=== PATIENT | female | born 1995 | race Caucasian/White ===

== ENCOUNTER 2016-04-20 22:47 | Emergency (ER) | payer MEDICAID ==
[2016-04-20 23:30] VITALS: BP 112/45
[2016-04-20] MEDS ORDERED: Acetaminophen/HYDROcodone 325-5 MG Tab PO ONE (23:42)
[2016-04-20] MEDS ORDERED: Prochlorperazine 10 MG Tab PO ONE (23:42)
--- NOTE | 2016-04-20 23:45 | EDM.PDOC ---
ED HPI HEADACHE COMPLAINT - General Chief Complaint: Headache Stated Complaint: MIGRAINE Time Seen by Provider: 04/20/16 23:06 Source: Reports: Patient History Limitations: Reports: No limitations - History of Present Illness INITIAL COMMENTS - FREE TEXT/NARRATIVE: This patient comes in complaining of a headache. It's been going on for weeks. She was in clinic yesterday and was given an Imitrex prescription and some Toradol I believe an injection and she said the Toradol helped. She took an Imitrex tablet tonight but it didn't seem to help. The pain is all on the left side of her head. She has a long history of headaches and this is nothing unusual for her. She had a vaginal delivery approximately 3 weeks ago. She denies any edema or abdominal pain. There is no history of preeclampsia. - Related Data Allergies/ADRs: Allergies Allergy/AdvReac Type Severity Reaction Status Date / Time No Known Allergies Allergy Verified 04/20/16 23:30 Home Meds: Home Meds Albuterol Sulfate [Proventil Hfa] 1 - 2 puff IH Q4HR PRN 07/06/15 [History] Ferrous Sulfate 325 mg PO BIDMEALS 12/28/15 [History] SUMAtriptan [Imitrex] 25 mg PO ASDIRECTED 04/20/16 [History] Past Medical History HEENT History: Reports: Impaired vision Other HEENT History: vision corrected with glasses Cardiovascular History: Reports: Other (see below) Other Cardiovascular History: heart palpitations Respiratory History: Reports: Asthma Other Respiratory History: uses inhaler; last used unknown Gastrointestinal History: Reports: Chronic constipation, GERD Other Gastrointestinal History: mom has crohns; Umbilical hernia Genitourinary History: Reports: STD, UTI, recurrent 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: , 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 Other OB/BYN History: 1st child born at 37+ weeks Musculoskeletal History: Reports: Other (see below) Other Musculoskeletal History: knee pain Neurological History: Reports: Migraines Psychiatric History: Reports: ADHD, Anxiety Other Psychiatric History: no medication; "know how to control it" Endocrine/Metabolic History: Reports: Obesity/BMI 30+ Hematologic History: Reports: Anemia, Other (see below) Other Hematologic History: recent and D&C september 22, 2014 Immunologic History: Reports: None Oncologic (Cancer) History: Reports: None Dermatologic History: Reports: Cellulitis Other Dermatologic History: history of cellulitis to right foot - Infectious Disease History Infectious Disease History: Reports: Chicken pox - Past Surgical History HEENT Surgical History: Reports: None Cardiovascular Surgical History: Reports: None Respiratory Surgical History: Reports: None GI Surgical History: Reports: Hernia repair/other Other GI Surgeries/Procedures: Umbilical hernia repair with mesh December 2013, Umbilical hernia repair with mesh 03/31 Female Surgical History: Reports: D&C Endocrine Surgical History: Reports: None Neurological Surgical History: Reports: None Musculoskeletal Surgical History: Reports: None Oncologic Surgical History: Reports: None Dermatological Surgical History: Reports: None Social & Family History - Family History Family Medical History: Noncontributory Neurological: Reports: Seizure - Tobacco Use Smoking Status *Q: Never Smoker Years of Tobacco use: 3 Packs/Tins Daily: 1 Used Tobacco, but Quit: Yes Month Tobacco Last Used: june Second Hand Smoke Exposure: No - Caffeine Use Caffeine Use: Reports: None - Alcohol Use Days Per Week of Alcohol Use: 0 - Recreational Drug Use Recreational Drug Use: No - Living Situation & Occupation Living situation: Reports: , with family ED ROS GENERAL - Review of Systems Review Of Systems: ROS reveals no pertinent complaints other than HPI. - Physical Exam Exam: See Below Exam Limited By: No limitations General Appearance: alert, WD/WN, no apparent distress Eye Exam: bilateral eye: EOMI, PERRL Nose: normal inspection Throat/Mouth: Normal inspection Head Exam: atraumatic Neck: normal inspection Respiratory/Chest: no respiratory distress, lungs clear Cardiovascular: regular rate, rhythm Neuro Exam (Abbreviated): alert, oriented, CN II-XII intact, normal cognition, no motor/sensory deficits Course - Vital Signs Last Recorded V/S: Last Vital Signs Temp 36.4 C 04/20/16 23:27 Pulse 78 04/20/16 23:27 Resp 12 04/20/16 23:27 BP 112/45 L 04/20/16 23:27 Pulse Ox 99 04/20/16 23:27 - Orders/Labs/Meds Meds: Medications Discontinued Medications Generic Name Dose Route Start Last Admin Trade Name Freq PRN Reason Stop Dose Admin Acetaminophen/Hydrocodone Bitart 2 tab 04/20/16 23:42 04/20/16 23:51 [place] 325-5 Mg PO 04/20/16 23:43 2 tab ONETIME ONE Administration Prochlorperazine Maleate 10 mg 04/20/16 23:42 04/20/16 23:51 Compazine PO 04/20/16 23:43 10 mg ONETIME ONE Administration Departure - Departure Time of Disposition: 23:43 Disposition: Home, Self-Care 01 Condition: fair Clinical Impression: Migraine Instructions: Migraine Headache, [id number] Referrals: Mimi Mistry CNM [Primary Care Provider] - Forms: ED Department Discharge Additional Instructions: The medication you received will start working at about an hour. It will make you very sleepy so don't even think of driving a car for at least the next 12 hours. Hopefully when you wake up in the morning the headache will become. If you have more problems contact your Dr. or return to the ER
== END 2016-04-20 23:59 | disposition home or self-care (01) ==
LOC: JP.ED 22:47
DX: G43.909 Migraine, unspecified, not intractable, without status migrainosus (principal); J45.909 Unspecified asthma, uncomplicated; K21.9 Gastro-esophageal reflux disease without esophagitis; Z87.440 Personal history of urinary (tract) infections; F41.9 Anxiety disorder, unspecified; E66.9 Obesity, unspecified; D64.9 Anemia, unspecified; Z79.899 Other long term (current) drug therapy
CPT/HCPCS: 99284; A9270

== ENCOUNTER 2016-04-25 | Emergency (ER) | payer MEDICAID ==
[2016-04-25] MEDS ORDERED: Ketorolac 60 MG/2 ML SDV IM ONE (00:20)
[2016-04-25 00:29] VITALS: BP 122/73
--- NOTE | 2016-04-25 01:01 | EDM.PDOC ---
ED HPI HEADACHE COMPLAINT - General Chief Complaint: Headache Stated Complaint: HEADACHE Time Seen by Provider: 04/25/16 00:16 Source: Reports: Patient History Limitations: Reports: No limitations - History of Present Illness INITIAL COMMENTS - FREE TEXT/NARRATIVE: History of present illness: [20-year-old female presents complaining of migraine headache. She's been using Imitrex without success. She's had Toradol injections in the past as been helpful. She also has a toothache and needs to see a dentist and is holding an ice bag against left cheek. She denies any fevers or chills cough or cold symptoms or sore throat. Pain is on the left side of her presybeterian and forehead she denies any photophobia with this or nausea.] Review of systems: As per history of present illness and below otherwise all systems reviewed and negative. Past medical history: As per history of present illness and as reviewed below otherwise noncontributory. Surgical history: As per history of present illness and as reviewed below otherwise noncontributory. Social history: No reported history of drug or alcohol abuse. Family history: As per history of present illness and as reviewed below otherwise noncontributory. Physical exam: HEENT: Atraumatic, normocephalic, pupils reactive, negative for conjunctival pallor or scleral icterus, mucous membranes moist, throat clear, neck supple, nontender, trachea midline. Tooth #17 has percussion tenderness Lungs: Clear to auscultation, breath sounds equal bilaterally, chest nontender. Heart: S1S2, regular, negative for clicks, rubs, or JVD. Abdomen: Soft, nondistended, nontender. Negative for masses or hepatosplenomegaly. Negative for costovertebral tenderness. Pelvis: Stable nontender. Genitourinary: Deferred. Rectal: Deferred. Extremities: Atraumatic, negative for cords or calf pain. Neurovascular unremarkable. Neuro: Awake, alert, oriented. Cranial nerves II through XII unremarkable. Cerebellum unremarkable. Motor and sensory unremarkable throughout. Exam nonfocal. Diagnostics: [] Therapeutics: [She was given Toradol IM and her pain went down to 3] Impression: [Migraine headache Toothache] Plan: [I am providing her pen VK 500 mg 1 by mouth 3 times a day #30 and advised you to follow up with a dentist.] Definitive disposition and diagnosis as appropriate pending reevaluation and review of above. - Related Data Allergies/ADRs: Allergies Allergy/AdvReac Type Severity Reaction Status Date / Time No Known Allergies Allergy Verified 04/20/16 23:30 Home Meds: Home Meds Albuterol Sulfate [Proventil Hfa] 1 - 2 puff IH Q4HR PRN 07/06/15 [History] Ferrous Sulfate 325 mg PO BIDMEALS 12/28/15 [History] SUMAtriptan [Imitrex] 25 mg PO ASDIRECTED 04/20/16 [History] Past Medical History HEENT History: Reports: Impaired vision Other HEENT History: vision corrected with glasses Cardiovascular History: Reports: Other (see below) Other Cardiovascular History: heart palpitations Respiratory History: Reports: Asthma Other Respiratory History: uses inhaler; last used unknown Gastrointestinal History: Reports: Chronic constipation, GERD Other Gastrointestinal History: mom has crohns; Umbilical hernia Genitourinary History: Reports: STD, UTI, recurrent 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: , 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 Other OB/BYN History: 1st child born at 37+ weeks Musculoskeletal History: Reports: Other (see below) Other Musculoskeletal History: knee pain Neurological History: Reports: Migraines Psychiatric History: Reports: ADD, ADHD, Anxiety, Bipolar Other Psychiatric History: no medication; "know how to control it" Endocrine/Metabolic History: Reports: Obesity/BMI 30+ Hematologic History: Reports: Anemia, Other (see below) Other Hematologic History: recent and D&C september 22, 2014 Immunologic History: Reports: None Oncologic (Cancer) History: Reports: None Dermatologic History: Reports: Cellulitis Other Dermatologic History: history of cellulitis to right foot - Infectious Disease History Infectious Disease History: Reports: Chicken pox - Past Surgical History GI Surgical History: Reports: Hernia repair/other Other GI Surgeries/Procedures: Umbilical hernia repair with mesh December 2013, Umbilical hernia repair with mesh 03/31 Female Surgical History: Reports: D&C Musculoskeletal Surgical History: Reports: None Social & Family History - Family History Family Medical History: Noncontributory Neurological: Reports: Seizure - Tobacco Use Smoking Status *Q: Former Smoker Years of Tobacco use: 4 Packs/Tins Daily: 1 Used Tobacco, but Quit: Yes Month Tobacco Last Used: january Second Hand Smoke Exposure: No - Caffeine Use Caffeine Use: Reports: Energy drinks, Soda - Alcohol Use Days Per Week of Alcohol Use: 0 - Recreational Drug Use Recreational Drug Use: No - Living Situation & Occupation Living situation: Reports: , with family ED ROS GENERAL - Review of Systems Review Of Systems: ROS reveals no pertinent complaints other than HPI. - Physical Exam Exam: See Below Course - Vital Signs Last Recorded V/S: Last Vital Signs Temp 36.5 C 04/25/16 00:30 Pulse 85 04/25/16 00:30 Resp 16 04/25/16 00:30 BP 122/73 04/25/16 00:30 Pulse Ox 96 04/25/16 00:30 - Orders/Labs/Meds Meds: Medications Discontinued Medications Generic Name Dose Route Start Last Admin Trade Name Freq PRN Reason Stop Dose Admin Ketorolac Tromethamine 30 mg 04/25/16 00:20 04/25/16 00:34 Toradol IM 04/25/16 00:21 30 mg ONETIME ONE Administration Departure - Departure Time of Disposition: 01:00 Disposition: Home, Self-Care 01 Condition: good Clinical Impression: Toothache Migraine Qualifiers: Migraine type: without aura Status migrainosus presence: without status migrainosus Intractability: not intractable Qualified Code(s): G43.009 - Migraine without aura, not intractable, without status migrainosus Forms: ED Department Discharge Additional Instructions: Please make an appointment with a dentist as soon as possible. I am providing her antibiotics in the meantime. You can continue to use Tylenol and/or Advil for control of your toothache. Followup with your primary care doctor who provided using Imitrex to discuss any other options for you if you feel that this medication is working for your migraines.
== END 2016-04-25 01:10 | disposition home or self-care (01) ==
LOC: JP.ED
DX: G43.009 Migraine without aura, not intractable, without status migrainosus (principal); K08.89 Other specified disorders of teeth and supporting structures; J45.909 Unspecified asthma, uncomplicated; K21.9 Gastro-esophageal reflux disease without esophagitis; F41.9 Anxiety disorder, unspecified; E66.9 Obesity, unspecified; D64.9 Anemia, unspecified; Z87.440 Personal history of urinary (tract) infections; Z87.891 Personal history of nicotine dependence
CPT/HCPCS: 96372; 99284; J1885

== ENCOUNTER 2016-04-29 23:00 | Emergency (ER) | payer MEDICAID ==
[2016-04-29 23:24] VITALS: BP 131/82
[2016-04-29] MEDS ORDERED: Ketorolac 60 MG/2 ML SDV IM ONE (23:34)
--- NOTE | 2016-04-30 | EDM.PDOC ---
ED HPI HEADACHE COMPLAINT - General Chief Complaint: Headache Stated Complaint: MIGRAINES Time Seen by Provider: 04/29/16 23:35 Source: Reports: Patient History Limitations: Reports: No limitations - History of Present Illness INITIAL COMMENTS - FREE TEXT/NARRATIVE: History of present illness: [Patient is here with a migraine headache. She has history of migraines and this is her typical migraine headache. She was apparently in the clinic today in some medications were prescribed she states she went over to [facility] and they were not there so she is trying to monitor him. No nausea or vomiting with this. She does have photophobia pounding generalized headache. She has no neck pain or stiffness no visual disturbance] Review of systems: As per history of present illness and below otherwise all systems reviewed and negative. Past medical history: As per history of present illness and as reviewed below otherwise noncontributory. Surgical history: As per history of present illness and as reviewed below otherwise noncontributory. Social history: No reported history of drug or alcohol abuse. Family history: As per history of present illness and as reviewed below otherwise noncontributory. Physical exam: HEENT: Atraumatic, normocephalic, pupils reactive, negative for conjunctival pallor or scleral icterus, mucous membranes moist, throat clear, neck supple, nontender, trachea midline. Lungs: Clear to auscultation, breath sounds equal bilaterally, chest nontender. Heart: S1S2, regular, negative for clicks, rubs, or JVD. Abdomen: Soft, nondistended, nontender. Negative for masses or hepatosplenomegaly. Negative for costovertebral tenderness. Pelvis: Stable nontender. Genitourinary: Deferred. Rectal: Deferred. Extremities: Atraumatic, negative for cords or calf pain. Neurovascular unremarkable. Neuro: Awake, alert, oriented. Cranial nerves II through XII unremarkable. Cerebellum unremarkable. Motor and sensory unremarkable throughout. Exam nonfocal. Diagnostics: [] Therapeutics: [She is given Toradol IM and improved office] Impression: [Migraine headache] Plan: [Followup as needed] Definitive disposition and diagnosis as appropriate pending reevaluation and review of above. - Related Data Allergies/ADRs: Allergies Allergy/AdvReac Type Severity Reaction Status Date / Time No Known Allergies Allergy Verified 04/29/16 23:21 Home Meds: Home Meds Albuterol Sulfate [Proventil Hfa] 1 - 2 puff IH Q4HR PRN 07/06/15 [History] Ferrous Sulfate 325 mg PO BIDMEALS 12/28/15 [History] Naproxen 500 mg PO BEDTIME 04/29/16 [History] Past Medical History HEENT History: Reports: Impaired vision Other HEENT History: vision corrected with glasses Cardiovascular History: Reports: Other (see below) Other Cardiovascular History: heart palpitations Respiratory History: Reports: Asthma Other Respiratory History: uses inhaler; last used unknown Gastrointestinal History: Reports: Chronic constipation, GERD Other Gastrointestinal History: mom has crohns; Umbilical hernia Genitourinary History: Reports: STD, UTI, recurrent 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: , Spontaneous Other OB/BYN History: 1st child born at 37+ weeks Musculoskeletal History: Reports: Other (see below) Other Musculoskeletal History: knee pain Neurological History: Reports: Migraines Psychiatric History: Reports: ADD, ADHD, Anxiety, Bipolar Other Psychiatric History: no medication; "know how to control it" Endocrine/Metabolic History: Reports: Obesity/BMI 30+ Hematologic History: Reports: Anemia, Other (see below) Other Hematologic History: recent and D&C september 22, 2014 Immunologic History: Reports: None Oncologic (Cancer) History: Reports: None Dermatologic History: Reports: Cellulitis Other Dermatologic History: history of cellulitis to right foot - Infectious Disease History Infectious Disease History: Reports: Chicken pox - Past Surgical History GI Surgical History: Reports: Hernia repair/other Other GI Surgeries/Procedures: Umbilical hernia repair with mesh December 2013, Umbilical hernia repair with mesh 03/31 Female Surgical History: Reports: D&C Musculoskeletal Surgical History: Reports: None Social & Family History - Family History Family Medical History: Noncontributory Neurological: Reports: Seizure - Tobacco Use Smoking Status *Q: Never Smoker Years of Tobacco use: 4 Packs/Tins Daily: 1 Used Tobacco, but Quit: Yes Month Tobacco Last Used: january Second Hand Smoke Exposure: No - Caffeine Use Caffeine Use: Reports: Energy drinks, Soda - Alcohol Use Days Per Week of Alcohol Use: 0 - Recreational Drug Use Recreational Drug Use: No - Living Situation & Occupation Living situation: Reports: , with family ED ROS GENERAL - Review of Systems Review Of Systems: ROS reveals no pertinent complaints other than HPI. - Physical Exam Exam: See Below Course - Vital Signs Last Recorded V/S: Last Vital Signs Temp 36.3 C 04/29/16 23:23 Pulse 85 04/29/16 23:23 Resp 18 04/29/16 23:23 BP 131/82 04/29/16 23:23 Pulse Ox 99 04/29/16 23:23 - Orders/Labs/Meds Meds: Medications Discontinued Medications Generic Name Dose Route Start Last Admin Trade Name Peteq PRN Reason Stop Dose Admin Ketorolac Tromethamine 30 mg 04/29/16 23:34 04/29/16 23:39 Toradol IM 04/29/16 23:35 30 mg ONETIME ONE Administration Departure - Departure Time of Disposition: 23:59 Disposition: Home, Self-Care 01 Condition: good Clinical Impression: Migraine Forms: ED Department Discharge Additional Instructions: Hopefully your meds will be at [facility] tomorrow and work for you. Follow up here as needed
== END 2016-04-30 00:07 | disposition home or self-care (01) ==
LOC: JP.ED 23:00
DX: G43.909 Migraine, unspecified, not intractable, without status migrainosus (principal); J45.909 Unspecified asthma, uncomplicated; E66.9 Obesity, unspecified; Z68.33 Body mass index [BMI] 33.0-33.9, adult; Z98.890 Other specified postprocedural states
CPT/HCPCS: 96372; 99284; J1885

== ENCOUNTER 2016-05-18 00:14 | Emergency (ER) | payer MEDICAID ==
[2016-05-18 02:29] VITALS: BP 132/89
[2016-05-18] MEDS ORDERED: Acetaminophen 325 MG Tab PO ONE (03:13)
--- NOTE | 2016-05-18 03:17 | EDM.PDOC ---
ED HPI HEADACHE COMPLAINT - General Chief Complaint: Headache Stated Complaint: MIGRAINE Time Seen by Provider: 05/18/16 03:07 Source: Reports: Patient History Limitations: Reports: No limitations - History of Present Illness INITIAL COMMENTS - FREE TEXT/NARRATIVE: This patient complains of having a headache all day long. She's been seen in the clinic before and was told to take naproxen. She's taking naproxen twice a day. She also took one Tylenol tablet this morning and another tonight but it hasn't seemed to help the headache. She's also taking some ibuprofen. She describes the pain as on the entire left side of her head. She's not having any visual changes - Related Data Allergies/ADRs: Allergies Allergy/AdvReac Type Severity Reaction Status Date / Time No Known Allergies Allergy Verified 05/18/16 02:22 Home Meds: Home Meds Albuterol Sulfate [Proventil Hfa] 1 - 2 puff IH Q4HR PRN 07/06/15 [History] Ferrous Sulfate 325 mg PO BIDMEALS 12/28/15 [History] Naproxen 500 mg PO BEDTIME 04/29/16 [History] Past Medical History HEENT History: Reports: Impaired vision Other HEENT History: vision corrected with glasses Cardiovascular History: Reports: Other (see below) Other Cardiovascular History: heart palpitations Respiratory History: Reports: Asthma Other Respiratory History: uses inhaler; last used unknown Gastrointestinal History: Reports: Chronic constipation, GERD Other Gastrointestinal History: mom has crohns; Umbilical hernia Genitourinary History: Reports: STD, UTI, recurrent 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: , 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 Other OB/BYN History: 1st child born at 37+ weeks Musculoskeletal History: Reports: Other (see below) Other Musculoskeletal History: knee pain Neurological History: Reports: Migraines Psychiatric History: Reports: ADD, ADHD, Anxiety, Bipolar Other Psychiatric History: no medication; "know how to control it" Endocrine/Metabolic History: Reports: Obesity/BMI 30+ Hematologic History: Reports: Anemia, Other (see below) Other Hematologic History: recent and D&C september 22, 2014 Immunologic History: Reports: None Oncologic (Cancer) History: Reports: None Dermatologic History: Reports: Cellulitis Other Dermatologic History: history of cellulitis to right foot - Infectious Disease History Infectious Disease History: Reports: Chicken pox - Past Surgical History GI Surgical History: Reports: Hernia repair/other Other GI Surgeries/Procedures: Umbilical hernia repair with mesh December 2013, Umbilical hernia repair with mesh 03/31 Female Surgical History: Reports: D&C Musculoskeletal Surgical History: Reports: None Social & Family History - Family History Family Medical History: Noncontributory Neurological: Reports: Seizure - Tobacco Use Smoking Status *Q: Never Smoker Years of Tobacco use: 4 Packs/Tins Daily: 1 Used Tobacco, but Quit: Yes Month Tobacco Last Used: january Second Hand Smoke Exposure: No - Caffeine Use Caffeine Use: Reports: Energy drinks - Alcohol Use Days Per Week of Alcohol Use: 0 - Recreational Drug Use Recreational Drug Use: No - Living Situation & Occupation Living situation: Reports: , with family ED ROS GENERAL - Review of Systems Review Of Systems: ROS reveals no pertinent complaints other than HPI. - Physical Exam Exam: See Below Exam Limited By: No limitations General Appearance: alert, WD/WN, no apparent distress Eye Exam: bilateral eye: EOMI, PERRL Ears: normal external exam, normal TMs Nose: normal inspection Throat/Mouth: Normal inspection, Normal oropharynx Head Exam: atraumatic Neck: other (There is some palpable muscle spasm to the left cervical paraspinous muscles) Course - Vital Signs Last Recorded V/S: Last Vital Signs Temp 37.2 C 05/18/16 02:23 Pulse 68 05/18/16 02:23 Resp 16 05/18/16 02:23 BP 132/89 05/18/16 02:23 Pulse Ox 98 05/18/16 02:23 - Orders/Labs/Meds Orders: Active Orders 24 hr Category Date Time Status Acetaminophen [Tylenol] Med 05/18/16 03:13 Once 650 mg PO NOW ONE Medication Orders Acetaminophen (Tylenol) 650 mg PO NOW ONE Stop: 05/18/16 03:14 Meds: Medications Generic Name Dose Route Start Last Admin Trade Name Freq PRN Reason Stop Dose Admin Acetaminophen 650 mg 05/18/16 03:13 Tylenol PO 05/18/16 03:14 NOW ONE - Re-Assessments/Exams Free Text/Narrative Re-Assessment/Exam: 05/18/16 03:15 The patient received Tylenol 650 mg by mouth Departure - Departure Time of Disposition: 03:16 Disposition: Home, Self-Care 01 Condition: fair Clinical Impression: Tension-type headache Forms: ED Department Discharge Additional Instructions: Take Tylenol 325 mg, 2 tablets every 4 hours for pain. Continue taking the naproxen twice daily. Naproxen and ibuprofen or almost the same thing so don't take any ibuprofen with the naproxen. - My Orders Last 24 Hours: My Active Orders 05/18/16 03:13 Acetaminophen [Tylenol] 650 mg PO NOW ONE - Assessment/Plan Last 24 Hours: My Active Orders 05/18/16 03:13 Acetaminophen [Tylenol] 650 mg PO NOW ONE
== END 2016-05-18 03:40 | disposition home or self-care (01) ==
LOC: JP.ED 00:14
DX: G44.209 Tension-type headache, unspecified, not intractable (principal); J45.909 Unspecified asthma, uncomplicated; F41.9 Anxiety disorder, unspecified; F31.9 Bipolar disorder, unspecified; K21.9 Gastro-esophageal reflux disease without esophagitis; E66.9 Obesity, unspecified; Z68.30 Body mass index [BMI] 30.0-30.9, adult; D64.9 Anemia, unspecified; Z98.890 Other specified postprocedural states; Z87.891 Personal history of nicotine dependence
CPT/HCPCS: 99283; A9270

== ENCOUNTER 2016-05-23 02:03 | Emergency (ER) | payer MEDICAID ==
[2016-05-23 02:21] VITALS: BP 118/83
--- NOTE | 2016-05-23 02:44 | EDM.PDOC ---
ED HPI ENT - General Chief Complaint: ENT Problem Stated Complaint: TOOTH PAIN Time Seen by Provider: 05/23/16 02:35 Source: Reports: Patient History Limitations: Reports: No limitations - History of Present Illness INITIAL COMMENTS - FREE TEXT/NARRATIVE: History of present illness: [20-year-old female who states she cannot get into the dentist on June 19. She is presenting with a toothache. No fever or breathing difficulties.] Review of systems: As per history of present illness and below otherwise all systems reviewed and negative. Past medical history: As per history of present illness and as reviewed below otherwise noncontributory. Surgical history: As per history of present illness and as reviewed below otherwise noncontributory. Social history: No reported history of drug or alcohol abuse. Family history: As per history of present illness and as reviewed below otherwise noncontributory. Physical exam: HEENT: Atraumatic, normocephalic, tooth #16 is decayed space on the buccal side and is tender to percussion Lungs: Clear to auscultation Heart: S1S2, regular Extremities: Atraumatic, negative for cords or calf pain. Neurovascular unremarkable. Neuro: Awake, alert, oriented Exam nonfocal. Diagnostics: [] Therapeutics: [] Impression: Tooth Samantha] Plan: [[place] #12 5/325 provided plus pen VK 500 mg 1 by mouth 4 times a day for 10 days] Definitive disposition and diagnosis as appropriate pending reevaluation and review of above. - Related Data Allergies/ADRs: Allergies Allergy/AdvReac Type Severity Reaction Status Date / Time No Known Allergies Allergy Verified 05/23/16 02:15 Home Meds: Home Meds Albuterol Sulfate [Proventil Hfa] 1 - 2 puff IH Q4HR PRN 07/06/15 [History] Ferrous Sulfate 325 mg PO BIDMEALS 12/28/15 [History] Naproxen 500 mg PO BEDTIME 04/29/16 [History] Amitriptyline [Elavil] 10 mg PO BEDTIME 05/23/16 [History] Past Medical History HEENT History: Reports: Impaired vision Other HEENT History: vision corrected with glasses Cardiovascular History: Reports: Other (see below) Other Cardiovascular History: heart palpitations Respiratory History: Reports: Asthma Other Respiratory History: uses inhaler; last used unknown Gastrointestinal History: Reports: Chronic constipation, GERD Other Gastrointestinal History: mom has crohns; Umbilical hernia Genitourinary History: Reports: STD, UTI, recurrent 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: , 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 Other OB/BYN History: 1st child born at 37+ weeks Musculoskeletal History: Reports: Other (see below) Other Musculoskeletal History: knee pain Neurological History: Reports: Migraines Psychiatric History: Reports: ADD, ADHD, Anxiety, Bipolar Other Psychiatric History: no medication; "know how to control it" Endocrine/Metabolic History: Reports: Obesity/BMI 30+ Hematologic History: Reports: Anemia, Other (see below) Other Hematologic History: recent and D&C september 22, 2014 Immunologic History: Reports: None Oncologic (Cancer) History: Reports: None Dermatologic History: Reports: Cellulitis Other Dermatologic History: history of cellulitis to right foot - Infectious Disease History Infectious Disease History: Reports: Chicken pox - Past Surgical History GI Surgical History: Reports: Hernia repair/other Other GI Surgeries/Procedures: Umbilical hernia repair with mesh December 2013, Umbilical hernia repair with mesh 03/31 Female Surgical History: Reports: D&C Musculoskeletal Surgical History: Reports: None Social & Family History - Family History Family Medical History: Noncontributory Neurological: Reports: Seizure - Tobacco Use Smoking Status *Q: Never Smoker Years of Tobacco use: 4 Packs/Tins Daily: 1 Used Tobacco, but Quit: Yes Month Tobacco Last Used: january Second Hand Smoke Exposure: No - Caffeine Use Caffeine Use: Reports: Energy drinks, Soda - Alcohol Use Days Per Week of Alcohol Use: 0 - Recreational Drug Use Recreational Drug Use: No - Living Situation & Occupation Living situation: Reports: , with family ED ROS ENT - Review of Systems Review Of Systems: ROS reveals no pertinent complaints other than HPI. ED EXAM, ENT - Physical Exam Exam: See Below Course - Vital Signs Last Recorded V/S: Last Vital Signs Temp 37.1 C 05/23/16 02:20 Pulse 113 H 05/23/16 02:20 Resp 16 05/23/16 02:20 BP 118/83 05/23/16 02:20 Pulse Ox 98 05/23/16 02:20 Departure - Departure Time of Disposition: 02:42 Disposition: Home, Self-Care 01 Condition: good Clinical Impression: Dental caries extending into dentin Forms: ED Department Discharge Additional Instructions: Please followup with the dentist on June 19 as you are already planning to do also before then if you could go in the clinic to see your doctor to see if they could help with your pain.
== END 2016-05-23 02:50 | disposition home or self-care (01) ==
LOC: JP.ED 02:03
DX: K02.62 Dental caries on smooth surface penetrating into dentin (principal); J45.909 Unspecified asthma, uncomplicated; F41.9 Anxiety disorder, unspecified; F31.9 Bipolar disorder, unspecified; E66.9 Obesity, unspecified; Z68.34 Body mass index [BMI] 34.0-34.9, adult; Z98.890 Other specified postprocedural states; Z79.899 Other long term (current) drug therapy
CPT/HCPCS: 99283

== ENCOUNTER 2016-05-30 06:24 | Inpatient (IN) | payer MEDICAID ==
[2016-05-30] MEDS ORDERED: Meropenem 500 MG SDV ONE (06:41)
[2016-05-30] MEDS ORDERED: Naloxone 0.4 MG/ML SDV IVPUSH PRN (07:12)
[2016-05-30] MEDS ORDERED: HYDROmorphone/Normal Saline 15 MG/30 ML PCA IV PRN (07:12)
[2016-05-30] MEDS ORDERED: Naloxone 0.4 MG/ML SDV IV PRN (07:18)
[2016-05-30] MEDS ORDERED: Dextrose 5%-Lactated Ringers 1,000 ML IV SCH ×2 (07:30→10:45)
[2016-05-30] MEDS ORDERED: fentaNYL 25 MCG/HR Transdermal Patch TRDERM ONE (07:30)
[2016-05-30] MEDS: Bupivacaine 0.5%/EPINEPHrine 1:200,000 50 ML MDV ONE ×2 (07:47→09:35)
[2016-05-30] MEDS ORDERED: Rocuronium 50 MG/5 ML Vial ONE (08:00)
[2016-05-30] MEDS ORDERED: Neostigmine Methylsulfate 1 MG/ML 5 ML Syringe ONE (08:00)
[2016-05-30] MEDS ORDERED: Propofol 200 MG/20 ML SDV ONE (08:00)
[2016-05-30] MEDS ORDERED: Midazolam 1 MG/ML 2 ML SDV ONE (08:00)
[2016-05-30] MEDS ORDERED: fentaNYL 250 MCG/5 ML SDV ONE (08:00)
[2016-05-30] MEDS ORDERED: Dexamethasone 4 MG/ML SDV ONE (08:00)
[2016-05-30] MEDS ORDERED: Albuterol/Ipratropium 3.0-0.5 MG/3 ML Neb Soln NEB ONE (08:00)
[2016-05-30] MEDS ORDERED: Ondansetron 4 MG/2 ML SDV ONE (08:00)
[2016-05-30] MEDS: cefOXitin 2 GM in Sodium Chloride 0.9% 50 ML IV ONE ×2 (08:41→10:53)
[2016-05-30] MEDS ORDERED: Ondansetron 4 MG/2 ML SDV IVPUSH PRN (10:44)
[2016-05-30] MEDS ORDERED: Albuterol/Ipratropium 3.0-0.5 MG/3 ML Neb Soln INH PRN (10:44)
[2016-05-30] MEDS: VERIFY FENTANYL PATCH TOP SCH ×2 (11:23→23:11)
[2016-05-30] MEDS: Albuterol/Ipratropium 3.0-0.5 MG/3 ML Neb Soln INH SCH ×3 (11:33→20:49)
[2016-05-30] MEDS: ceFAZolin 2 GM in Sodium Chloride 0.9% 50 ML IV SCH ×2 (14:12→22:52)
[2016-05-30] MEDS: Naproxen 250 MG Tab PO SCH (18:00)
[2016-05-30] MEDS ORDERED: Amitriptyline 10 MG Tab PO SCH (21:00)
[2016-05-30] MEDS: Acetaminophen/HYDROcodone 325-5 MG Tab PO PRN (23:11)
[2016-05-31] MEDS: ceFAZolin 2 GM in Sodium Chloride 0.9% 50 ML IV SCH (05:33)
[2016-05-31] MEDS: Acetaminophen/HYDROcodone 325-5 MG Tab PO PRN (05:33)
[2016-05-31 07:12] VITALS: BP 113/52
[2016-05-31] MEDS: Naproxen 250 MG Tab PO SCH (07:19)
[2016-05-31] MEDS: Albuterol/Ipratropium 3.0-0.5 MG/3 ML Neb Soln INH SCH (07:22)
[2016-05-31] MEDS: VERIFY FENTANYL PATCH TOP SCH (08:28)
--- NOTE | 2016-05-31 09:32 | DISCH ---
ADMISSION DIAGNOSES: Recurrent incarcerated umbilical hernia, abnormal menstrual cycle, attention deficit hyperactivity disorder, anxiety, asthma, history of anemia in , bipolar disorder. DISCHARGE DIAGNOSES: Laparoscopic repair of recurrent incarcerated umbilical hernia and incarcerated incisional hernia of the trocar site on 05/30/2016. HISTORY: Jazmyn Mahan is a 20-year-old female with recurrent incarcerated umbilical hernia and incarcerated incisional hernia of the trocar site. After preoperative evaluation and discussion of possible risks and possible complications, she wished to proceed with surgical procedure. HOSPITAL COURSE: Edita had her surgery on 05/30/2016. She had no operative complications on postop day #1. She was able to be discharged to home. PHYSICAL EXAMINATION: GENERAL: Jazmyn is a 20-year-old female. Height is 5 feet 5 inches. Weight is 199 pounds. VITAL SIGNS: TPR is 98.3, 71, 16, blood pressure 113/52. HEENT: Negative. NECK: Supple. HEART: Regular rate and rhythm. LUNGS: Clear. ABDOMEN: Dressings are removed. Incisions look good. Sutures in place. She has a pressure dressing over previous hernia site. EXTREMITIES: Without peripheral edema. DISPOSITION: Discharged to home. CONDITION: Stable and improving. FOLLOWUP APPOINTMENT: With Niurka Underwood PA-C on 06/10/2016 at 9 a.m. MEDICATIONS: New prescriptions are [place] 5/325 mg 1 to 2 every 4 hours p.r.n. pain. She is to resume her home medications of albuterol, Proventil inhaler 1 to 2 puffs every 6 hours p.r.n. shortness of breath, Elavil 10 mg oral at bedtime, ferrous sulfate 325 mg oral daily, naproxen 500 mg oral twice daily, pediatric multivitamin Flintstones Gummies 1 daily, and pen VK 500 mg 4 times a day, which she was on. She is to take off the Duragesic pain patch on 06/03/2016. DIET: Usual diet as tolerated. Drink 8 to 10 glasses of water a day. ACTIVITY: As tolerated. No lifting greater than 10 pounds for 1 month. Driving after discharge; do not drive on pain medication. May shower. Notify provider if any fever, increased pain, nausea, or vomiting. Wound incision care; keep site clean and dry. Wear abdominal binder for 6 weeks with a pressure dressing over hernia site. Use a roll of Kerlix or rolled of a washcloth. Use incentive spirometer 10 times every hour while awake.
[2016-06-02] MEDS ORDERED: fentaNYL 25 MCG/HR Transdermal Patch TRDERM SCH (09:00)
--- NOTE | 2016-06-02 14:33 | OR ---
DATE OF PROCEDURE: 05/30/2016 PREOPERATIVE DIAGNOSIS: Recurrent umbilical hernia. POSTOPERATIVE DIAGNOSES: 1. Recurrent incarcerated umbilical hernia. 2. Primary incarcerated incisional hernia (previous trocar site). OPERATIVE PROCEDURE: Diagnostic laparoscopy with: 1. Repair of recurrent incarcerated umbilical hernia with mesh (08461). 2. Repair of primary incarcerated incisional hernia with mesh (71534). ANESTHESIA: General. MEDICAL ASSISTANT OB GYN: Niurka Underwood PA-C. INDICATIONS FOR PROCEDURE: A 20-year-old female presenting with a recurrent umbilical hernia. The patient underwent a previous repair but shortly after that she became , and this resulted in recurrence. Plan is to proceed with laparoscopy and laparotomy if necessary. The repair of the hernia with mesh. Potential risks including bleeding, infection, injury to underlying viscera, possible recurrence of the hernia once again and problems with mesh becoming infected were all reviewed, and the patient wishes to proceed. DETAILS OF PROCEDURE: The patient was taken to the operating room and placed in a supine position. After general endotracheal anesthesia was induced, a Khan catheter was inserted, and the abdomen prepped and draped. In the left lateral abdomen, a transverse incision was made. The peritoneal cavity entered under direct vision with an Optiview trocar and inflated to 15 mmHg pressure with CO2. Laparoscope was then reinserted. No underlying trocar insertion site injuries were seen. Following this, 4 additional trocars were placed, 2 on the left and 2 on the right side of the abdomen. General exploration was undertaken. The patient was noted to have some incarcerated omentum in the recurrent umbilical hernia, which is located just above the previous mesh. There is also additional trocar site hernia located somewhat superior to that, which had some incarcerated omentum within it as well. The omentum was then taken down with Harmonic scalpel, and then a 20 cm circular Ventralex mesh with the positioning system, balloon was selected. This was soaked in antibiotic-containing saline solution and placed into the intraperitoneal location. A stab wound over the center where the 2 sites of the hernias, and the inflation catheter was then pulled up through the abdominal wall at that level. The balloon was inflated, thus pushing the mesh up against the abdominal wall with good coverage to both hernias being confirmed. The mesh was then circumferentially attached with ReliaTack absorbed tacking screws. Once this was completed, the balloon was deflated and withdrawn. There appeared to be good fixation of the mesh in all areas, and at that point the trocars were removed. The peritoneal cavity deflated. The fascia at the 12 mm site was closed with 0 Vicryl stitch and the skin at each incision with 6-0 Vicryl skin stitch. The patient was taken to the recovery room in satisfactory condition. Physician assistant fitness manager, Niurka Underwood played an essential role in assisting in this case, helping to position the patient, retract structures as needed, as well as suturing and cutting sutures. Her presence improved the patient safety and decreased operative time. Huan Walker MD /[id number]
== END 2016-05-31 09:40 | disposition home or self-care (01) | DRG 355 ==
LOC: JP.SDS 06:24 → JP.SDSSCHI 06:24 → JP.2SS 10:30 → EDSTATUS 12:15
PROVIDERS: ADMIT Surgery; ATTEND Surgery
PROC: 0WUF4JZ Supplement Abdominal Wall with Synthetic Substitute, Percutaneous Endoscopic Approach (ICD-10-PCS; principal; 2016-05-30)
DX: K42.0 Umbilical hernia with obstruction, without gangrene (principal); D50.8 Other iron deficiency anemias; J45.909 Unspecified asthma, uncomplicated; K43.0 Incisional hernia with obstruction, without gangrene; F31.9 Bipolar disorder, unspecified
CPT/HCPCS: 94640; 94640-76; 94762; A9270-GY; C1781; J0690; J0694; J1100; J1170; J2185; J2250; J2405; J2704; J3010; J7042; J7050; J7620

== ENCOUNTER 2016-06-03 20:06 | Emergency (ER) | payer MEDICAID ==
[2016-06-03 20:49] VITALS: BP 122/92
--- NOTE | 2016-06-03 21:44 | EDM.PDOC ---
ED HPI GI/ABDOMINAL - General Chief Complaint: Abdominal Pain Stated Complaint: WANTS PAIN MEDS Time Seen by Provider: 06/03/16 21:27 Source: Reports: Patient, RN notes reviewed History Limitations: Reports: No limitations - History of Present Illness INITIAL COMMENTS - FREE TEXT/NARRATIVE: 20-year-old female presents emergency department day complaint of abdominal pain , she was recently discharged from the hospital on the for umbilical hernia repair she states she was discharged with hydrocodone and has used oxycodone in the past hurt issue today is her pain is not adequately controlled postoperatively with the hydrocodone she is passing gas denies any fevers and tolerating a diet - Related Data Allergies/ADRs: Allergies Allergy/AdvReac Type Severity Reaction Status Date / Time No Known Allergies Allergy Verified 06/03/16 20:48 Home Meds: Home Meds Albuterol Sulfate [Proventil Hfa] 1 - 2 puff IH Q6HR PRN 07/06/15 [History] Ferrous Sulfate 325 mg PO DAILY 12/28/15 [History] Naproxen 500 mg PO BID 04/29/16 [History] Amitriptyline [Elavil] 10 mg PO BEDTIME 05/23/16 [History] Penicillin V Potassium 500 mg PO QID 05/30/16 [History] Acetaminophen/HYDROcodone [[place] 325-5 MG] 1 - 2 tab PO Q4H PRN #40 tablet 05/31 [Rx] Past Medical History HEENT History: Reports: Impaired vision, Other (see below) Other HEENT History: vision corrected with glasses, infected cracked tooth Cardiovascular History: Reports: Other (see below) Other Cardiovascular History: heart palpitations Respiratory History: Reports: Asthma Other Respiratory History: uses inhaler; last used unknown Gastrointestinal History: Reports: Chronic constipation, GERD Other Gastrointestinal History: mom has crohns; Umbilical hernia Genitourinary History: Reports: STD, UTI, recurrent 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: , 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 Other OB/BYN History: 1st child born at 37+ weeks Musculoskeletal History: Reports: Other (see below) Other Musculoskeletal History: knee pain Neurological History: Reports: Migraines Psychiatric History: Reports: ADD, ADHD, Anxiety, Bipolar Other Psychiatric History: no medication; "know how to control it" Endocrine/Metabolic History: Reports: Obesity/BMI 30+ Hematologic History: Reports: Anemia, Other (see below) Other Hematologic History: recent and D&C september 22, 2014 Dermatologic History: Reports: Cellulitis Other Dermatologic History: history of cellulitis to right foot - Infectious Disease History Infectious Disease History: Reports: Chicken pox - Past Surgical History GI Surgical History: Reports: Hernia repair/other Other GI Surgeries/Procedures: Umbilical hernia repair with mesh December 2013, Umbilical hernia repair with mesh 03/31 Female Surgical History: Reports: D&C Musculoskeletal Surgical History: Reports: None Social & Family History - Family History Family Medical History: Noncontributory Neurological: Reports: Seizure - Tobacco Use Smoking Status *Q: Former Smoker Years of Tobacco use: 3 Packs/Tins Daily: 0 Used Tobacco, but Quit: Yes Month Tobacco Last Used: 3 1/2 years ago Second Hand Smoke Exposure: No - Caffeine Use Caffeine Use: Reports: Coffee - Alcohol Use Days Per Week of Alcohol Use: 0 - Recreational Drug Use Recreational Drug Use: No - Living Situation & Occupation Living situation: Reports: , with family ED ROS GENERAL - Review of Systems Review Of Systems: See Below Constitutional: Denies: fever, chills HEENT: Reports: No symptoms Respiratory: Reports: No Symptoms Cardiovascular: Reports: No symptoms GI/Abdominal: Reports: Abdominal pain. Denies: Nausea, Vomiting : Reports: no symptoms Musculoskeletal: Reports: no symptoms Skin: Reports: no symptoms Neurological: Reports: No Symptoms ED EXAM, GI/ABD - Physical Exam Exam: See Below Exam Limited By: No limitations General Appearance: alert, WD/WN, no apparent distress Respiratory/Chest: no respiratory distress GI/Abdominal: soft, non tender, other (Abdominal binder in place surgical wounds clean dry and intact) Course - Vital Signs Last Recorded V/S: Last Vital Signs Temp 100.0 F 06/03/16 20:45 Pulse 107 H 06/03/16 20:45 Resp 16 06/03/16 20:45 BP 122/92 H 06/03/16 20:45 Pulse Ox 96 06/03/16 20:45 Departure - Departure Time of Disposition: 21:43 Disposition: Home, Self-Care 01 Condition: good Clinical Impression: Status post laparoscopic hernia repair Forms: ED Department Discharge Additional Instructions: Use hydrocodone as needed for pain control, please followup with surgery in one to 2 days if no improvement - Assessment/Plan Plan: Assessment Acuity = acute Site and laterality = abdominal pain complicated patient post operative day 3 from an umbilical hernia repair Etiology = probable medication use Manifestations = none Location of injury = home Lab values = none Plan Changed her medication stop the hydrocodone switched her to oxycodone have her followup with surgery in one to 2 days if no improvement Patient was in agreement with the plan all questions were answered, they were instructed to return to the emergency department or call for worsening symptoms. This note was dictated using [employer] voice recognition software please call with any questions.
== END 2016-06-03 22:07 | disposition home or self-care (01) ==
LOC: JP.ED 20:06
DX: R10.9 Unspecified abdominal pain (principal); J45.909 Unspecified asthma, uncomplicated; F41.9 Anxiety disorder, unspecified; F31.9 Bipolar disorder, unspecified; E66.9 Obesity, unspecified; Z68.33 Body mass index [BMI] 33.0-33.9, adult; Z98.890 Other specified postprocedural states; Z87.891 Personal history of nicotine dependence; Z79.899 Other long term (current) drug therapy
CPT/HCPCS: 99284

== ENCOUNTER 2016-07-25 20:28 | Emergency (ER) | payer MEDICAID ==
[2016-07-25] MEDS ORDERED: diphenhydrAMINE 25 MG Cap PO ONE (22:48)
[2016-07-25 22:50] VITALS: BP 124/75
--- NOTE | 2016-07-25 22:55 | EDM.PDOC ---
ED HPI GENERAL MEDICAL PROBLEM - General Chief Complaint: Bite:Animal, Insect Stated Complaint: BUG BITE Time Seen by Provider: 07/25/16 22:49 Source of Information: Reports: Patient History Limitations: Reports: No Limitations - History of Present Illness INITIAL COMMENTS - FREE TEXT/NARRATIVE: pt has a bite on her rt shoulder. She was driving and she suddenly felt the bite. 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 Onset: Today Duration: Hour(s): Location: Reports: Back Quality: Reports: Burning Associated Symptoms: Reports: Other ( bug bite on the rt post shoulder area. ) Right Shoulder Pain Score (Numeric/FACES): 4 - Related Data Allergies Allergy/AdvReac Type Severity Reaction Status Date / Time No Known Allergies Allergy Verified 07/25/16 22:43 Home Meds: Home Meds Albuterol Sulfate [Proventil Hfa] 1 - 2 puff IH Q6HR PRN 07/06/15 [History] Ferrous Sulfate 325 mg PO DAILY 12/28/15 [History] Naproxen 500 mg PO BID 04/29/16 [History] Amitriptyline [Elavil] 10 mg PO BEDTIME 05/23/16 [History] Past Medical History HEENT History: Reports: Impaired Vision, Other (See Below) Other HEENT History: vision corrected with glasses, infected cracked tooth Cardiovascular History: Reports: Other (See Below) Other Cardiovascular History: heart palpitations Respiratory History: Reports: Asthma Other Respiratory History: uses inhaler; last used unknown Gastrointestinal History: Reports: Chronic Constipation, GERD Other Gastrointestinal History: mom has crohns; Umbilical hernia Genitourinary History: Reports: STD, UTI, Recurrent 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: , Spontaneous Other OB/BYN History: 1st child born at 37+ weeks Musculoskeletal History: Reports: Other (See Below) Other Musculoskeletal History: knee pain Neurological History: Reports: Migraines Psychiatric History: Reports: ADD, ADHD, Anxiety, Bipolar Other Psychiatric History: no medication; "know how to control it" Endocrine/Metabolic History: Reports: Obesity/BMI 30+ Hematologic History: Reports: Anemia, Other (See Below) Other Hematologic History: recent and D&C september 22, 2014 Dermatologic History: Reports: Cellulitis Other Dermatologic History: history of cellulitis to right foot - Infectious Disease History Infectious Disease History: Reports: Chicken Pox - Past Surgical History GI Surgical History: Reports: Hernia Repair/Other Social & Family History - Family History Family Medical History: Noncontributory Neurological: Reports: Seizure - Tobacco Use Smoking Status *Q: Former Smoker Years of Tobacco use: 3 Packs/Tins Daily: 0 Used Tobacco, but Quit: Yes Month Tobacco Last Used: 3 1/2 years ago Second Hand Smoke Exposure: No - Caffeine Use Caffeine Use: Reports: Coffee - Alcohol Use Days Per Week of Alcohol Use: 0 - Recreational Drug Use Recreational Drug Use: No - Living Situation & Occupation Living situation: Reports: , with Family ED ROS GENERAL - Review of Systems Review Of Systems: See Below Constitutional: Reports: No Symptoms HEENT: Reports: No Symptoms Respiratory: Reports: No Symptoms Cardiovascular: Reports: No Symptoms Endocrine: Reports: No Symptoms GI/Abdominal: Reports: No Symptoms : Reports: No Symptoms Skin: Reports: Other ( bug bite rt shoulder) ED EXAM, ANIMAL BITE - Physical Exam Exam: See Below Text/Narrative:: pt has a bite on the rt shoulder Exam Limited By: No Limitations General Appearance: Alert Extremities: Other (pt has a bug bite on the rt shoulder which happened this afternoon. She was concerned that it could cause an allergic reaction. ) Neurological: Alert, Oriented, Normal Cognition Course - Orders/Labs/Meds Orders: Active Orders 24 hr Category Date Time Status diphenhydrAMINE [Benadryl] Med 07/25/16 22:48 Once 50 mg PO ONETIME ONE Medication Orders Diphenhydramine HCl (Benadryl) 50 mg PO ONETIME ONE Stop: 07/25/16 22:49 Meds: Medications Generic Name Dose Route Start Last Admin Trade Name Zan PRN Reason Stop Dose Admin Diphenhydramine HCl 50 mg 07/25/16 22:48 Benadryl PO 07/25/16 22:49 ONETIME ONE - Re-Assessments/Exams Free Text/Narrative Re-Assessment/Exam: 07/25/16 22:53 pt was given benadryl 50mg. Departure - Departure Time of Disposition: 22:54 Disposition: Home, Self-Care 01 Condition: Fair Clinical Impression: Bug bite - Discharge Information Forms: ED Department Discharge Care Plan Goals: coolpack, benadryl 50mg q6h, kenalog cream to the area tid. - My Orders Last 24 Hours: My Active Orders 07/25/16 22:48 diphenhydrAMINE [Benadryl] 50 mg PO ONETIME ONE - Assessment/Plan Last 24 Hours: My Active Orders 07/25/16 22:48 diphenhydrAMINE [Benadryl] 50 mg PO ONETIME ONE
== END 2016-07-25 23:04 | disposition home or self-care (01) ==
LOC: JP.ED 20:28
DX: S40.261A Insect bite (nonvenomous) of right shoulder, initial encounter (principal); J45.909 Unspecified asthma, uncomplicated; F90.9 Attention-deficit hyperactivity disorder, unspecified type; F41.9 Anxiety disorder, unspecified; E66.9 Obesity, unspecified; F31.9 Bipolar disorder, unspecified; Z79.899 Other long term (current) drug therapy; Z87.891 Personal history of nicotine dependence; W57.XXXA Bitten or stung by nonvenomous insect and other nonvenomous arthropods, initial encounter
CPT/HCPCS: 99282; A9270

== ENCOUNTER 2016-10-30 15:07 | Emergency (ER) | payer MEDICAID ==
[2016-10-30] MEDS ORDERED: Sodium Chloride 0.9% 1,000 ML IV SCH (16:15)
[2016-10-30] MEDS ORDERED: Prochlorperazine 10 MG/2 ML SDV IVPUSH ONE (16:16)
[2016-10-30] MEDS ORDERED: diphenhydrAMINE 50 MG/ML SDV IVPUSH ONE (16:16)
[2016-10-30] MEDS ORDERED: Ketorolac 30 MG/ML SDV IVPUSH ONE (16:17)
[2016-10-30 16:56] VITALS: BP 133/90
--- NOTE | 2016-10-30 17:25 | EDM.PDOC ---
ED HPI GENERAL MEDICAL PROBLEM - General Chief Complaint: Gastrointestinal Problem Stated Complaint: VOMITING Time Seen by Provider: 10/30/16 15:30 Source of Information: Reports: Patient, Family History Limitations: Reports: No Limitations - History of Present Illness INITIAL COMMENTS - FREE TEXT/NARRATIVE: pt has a severe headache and has been vomiting. She does not get her period but she is sure she is not . Onset: Other ( 2 days of a headache) Duration: Day(s): Location: Reports: Head Associated Symptoms: Reports: Headaches, Other (pt has a history of migraine headaches. ) - Related Data Allergies Allergy/AdvReac Type Severity Reaction Status Date / Time No Known Allergies Allergy Verified 07/25/16 22:43 Home Meds: Home Meds Albuterol Sulfate [Proventil Hfa] 1 - 2 puff IH Q6HR PRN 07/06/15 [History] FLUoxetine HCl [Fluoxetine HCl] 20 mg PO DAILY 10/30/16 [History] Past Medical History HEENT History: Reports: Impaired Vision, Other (See Below) Other HEENT History: vision corrected with glasses, infected cracked tooth Cardiovascular History: Reports: Other (See Below) Other Cardiovascular History: heart palpitations Respiratory History: Reports: Asthma Other Respiratory History: uses inhaler; last used unknown Gastrointestinal History: Reports: Chronic Constipation, GERD Other Gastrointestinal History: mom has crohns; Umbilical hernia Genitourinary History: Reports: STD, UTI, Recurrent 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: , Spontaneous Other OB/BYN History: 1st child born at 37+ weeks Musculoskeletal History: Reports: Other (See Below) Other Musculoskeletal History: knee pain Neurological History: Reports: Migraines Psychiatric History: Reports: ADD, ADHD, Anxiety, Bipolar Other Psychiatric History: no medication; "know how to control it" Endocrine/Metabolic History: Reports: Obesity/BMI 30+ Hematologic History: Reports: Anemia Other Hematologic History: recent and D&C september 22, 2014 Dermatologic History: Reports: Cellulitis Other Dermatologic History: history of cellulitis to right foot - Infectious Disease History Infectious Disease History: Reports: Chicken Pox Other Infectious Disease History: unknown - Past Surgical History GI Surgical History: Reports: Hernia Repair/Other Social & Family History - Family History Family Medical History: Noncontributory Neurological: Reports: Seizure - Tobacco Use Smoking Status *Q: Never Smoker Years of Tobacco use: 3 Packs/Tins Daily: 0 Used Tobacco, but Quit: Yes Month Tobacco Last Used: 3 1/2 years ago Second Hand Smoke Exposure: No - Caffeine Use Caffeine Use: Reports: Coffee, Energy Drinks, Soda, Tea - Alcohol Use Days Per Week of Alcohol Use: 0 - Recreational Drug Use Recreational Drug Use: No - Living Situation & Occupation Living situation: Reports: , with Family ED ROS GENERAL - Review of Systems Review Of Systems: See Below Constitutional: Reports: Decreased Appetite, Other (pt has been vomiting) HEENT: Reports: No Symptoms Respiratory: Reports: No Symptoms Cardiovascular: Reports: No Symptoms Endocrine: Reports: No Symptoms GI/Abdominal: Reports: Vomiting Neurological: Reports: Headache, Other ( Pt has had a headache for 2 days. ) ED EXAM, GI/ABD - Physical Exam Exam: See Below Text/Narrative:: Pt has a headche and has vomited all day today. Exam Limited By: No Limitations General Appearance: Alert, Anxious, Mild Distress Ears: Normal TMs Nose: Normal Inspection Throat/Mouth: Normal Inspection Head: Atraumatic Neck: Normal Inspection Respiratory/Chest: No Respiratory Distress Cardiovascular: Regular Rate, Rhythm GI/Abdominal Exam: Other ( no tenderness present. ) (Female) Exam: Deferred Rectal (Female) Exam: Heme - Stool Back Exam: Normal Inspection Course - Vital Signs Last Recorded V/S: Last Vital Signs Temp 36.1 C 10/30/16 16:32 Pulse 68 10/30/16 16:55 Resp 14 10/30/16 16:55 BP 133/90 10/30/16 16:55 Pulse Ox 98 10/30/16 16:55 - Orders/Labs/Meds Orders: Active Orders 24 hr Category Date Time Status Sodium Chloride 0.9% [Normal Saline] 1,000 ml Med 10/30/16 16:15 Active IV ASDIRECTED Medication Orders Sodium Chloride (Normal Saline) 1,000 mls @ 999 mls/hr IV ASDIRECTED SARAH Last Admin: 10/30/16 16:27 Dose: 999 mls/hr Labs: Laboratory Tests 10/30/16 10/30/16 10/30/16 Range/Units 16:23 16:23 16:28 WBC 8.8 (4.5-11.0) K/uL RBC 5.23 (3.30-5.50) M/uL Hgb 14.4 D (12.0-15.0) g/dL Hct 44.2 (36.0-48.0) % MCV 85 (80-98) fL MCH 28 (27-31) pg MCHC 33 (32-36) % Plt Count 415 H (150-400) K/uL Neut % (Auto) 55 (36-66) % Lymph % (Auto) 31 (24-44) % Ponce % (Auto) 11 H (2-6) % Eos % (Auto) 1 L (2-4) % Baso % (Auto) 2 H (0-1) % Sodium (140-148) mmol/L Potassium (3.6-5.2) mmol/L Chloride (100-108) mmol/L Carbon Dioxide (21-32) mmol/L Anion Gap (5.0-14.0) mmol/L BUN (7-18) mg/dL Creatinine (0.6-1.0) mg/dL Est Cr Clr Drug Dosing mL/min Estimated GFR (MDRD) (>60) Glucose (74-106) mg/dL Calcium (8.5-10.1) mg/dL Total Bilirubin (0.2-1.0) mg/dL AST (15-37) U/L ALT (12-78) U/L Alkaline Phosphatase (46-116) U/L Total Protein (6.4-8.2) g/dL Albumin (3.4-5.0) g/dL Globulin (2.3-3.5) g/dL Albumin/Globulin Ratio (1.2-2.2) Urine Color Yellow Urine Appearance Slightly cloudy Urine pH 6.5 (4.5-8.0) Ur Specific Donie 1.015 (1.008-1.030) Urine Protein Negative (NEGATIVE) mg/dL Urine Glucose (UA) Normal (NEGATIVE) mg/dL Urine Ketones Negative (NEGATIVE) mg/dL Urine Occult Blood Negative (NEGATIVE) Urine Nitrite Negative (NEGATIVE) Urine Bilirubin Negative (NEGATIVE) Urine Urobilinogen 1 (NORMAL) mg/dL Ur Leukocyte Esterase Negative (NEGATIVE) Urine RBC 0-5 (0-5) Urine WBC 0-5 (0-5) Ur Epithelial Cells Moderate Amorphous Sediment Not seen Urine Bacteria Few Urine Mucus Many Urine HCG, Qual Negative 10/30/16 Range/Units 16:28 WBC (4.5-11.0) K/uL RBC (3.30-5.50) M/uL Hgb (12.0-15.0) g/dL Hct (36.0-48.0) % MCV (80-98) fL MCH (27-31) pg MCHC (32-36) % Plt Count (150-400) K/uL Neut % (Auto) (36-66) % Lymph % (Auto) (24-44) % Ponce % (Auto) (2-6) % Eos % (Auto) (2-4) % Baso % (Auto) (0-1) % Sodium 139 L (140-148) mmol/L Potassium 3.8 (3.6-5.2) mmol/L Chloride 103 (100-108) mmol/L Carbon Dioxide 28 (21-32) mmol/L Anion Gap 11.8 (5.0-14.0) mmol/L BUN 10 (7-18) mg/dL Creatinine 0.6 (0.6-1.0) mg/dL Est Cr Clr Drug Dosing 132.34 mL/min Estimated GFR (MDRD) > 60 (>60) Glucose 81 (74-106) mg/dL Calcium 9.2 (8.5-10.1) mg/dL Total Bilirubin 0.3 (0.2-1.0) mg/dL AST 18 D (15-37) U/L ALT 30 D (12-78) U/L Alkaline Phosphatase 107 (46-116) U/L Total Protein 9.1 H (6.4-8.2) g/dL Albumin 3.7 (3.4-5.0) g/dL Globulin 5.4 H (2.3-3.5) g/dL Albumin/Globulin Ratio 0.7 L (1.2-2.2) Urine Color Urine Appearance Urine pH (4.5-8.0) Ur Specific Donie (1.008-1.030) Urine Protein (NEGATIVE) mg/dL Urine Glucose (UA) (NEGATIVE) mg/dL Urine Ketones (NEGATIVE) mg/dL Urine Occult Blood (NEGATIVE) Urine Nitrite (NEGATIVE) Urine Bilirubin (NEGATIVE) Urine Urobilinogen (NORMAL) mg/dL Ur Leukocyte Esterase (NEGATIVE) Urine RBC (0-5) Urine WBC (0-5) Ur Epithelial Cells Amorphous Sediment Urine Bacteria Urine Mucus Urine HCG, Qual Meds: Medications Generic Name Dose Route Start Last Admin Trade Name Freq PRN Reason Stop Dose Admin Sodium Chloride 1,000 mls @ 999 mls/hr 10/30/16 16:15 10/30/16 16:27 Normal Saline IV 999 mls/hr ASDIRECTED SARAH Administration Discontinued Medications Generic Name Dose Route Start Last Admin Trade Name Zan PRN Reason Stop Dose Admin Diphenhydramine HCl 25 mg 10/30/16 16:16 10/30/16 16:44 Benadryl IVPUSH 10/30/16 16:17 25 mg ONETIME ONE Administration Ketorolac Tromethamine 30 mg 10/30/16 16:17 10/30/16 16:48 Toradol IVPUSH 10/30/16 16:18 30 mg ONETIME ONE Administration Prochlorperazine Edisylate 10 mg 10/30/16 16:16 10/30/16 16:41 Compazine IVPUSH 10/30/16 16:17 10 mg ONETIME ONE Administration - Re-Assessments/Exams Free Text/Narrative Re-Assessment/Exam: 10/30/16 17:23 pt was given a liter of fluid torodol 30mg iv, compazine 10mg iv and benadryl 25 mg iv. Departure - Departure Time of Disposition: 17:24 Disposition: Home, Self-Care 01 Condition: Fair Clinical Impression: Migraine headache, Dehydration - Discharge Information Referrals: Sylvie Charles CNM [Primary Care Provider] - Care Plan Goals: rest, push fluids, zoforan 4 mg q6h prn for nausea. - My Orders Last 24 Hours: My Active Orders 10/30/16 16:15 Sodium Chloride 0.9% [Normal Saline] 1,000 ml IV ASDIRECTED - Assessment/Plan Last 24 Hours: My Active Orders 10/30/16 16:15 Sodium Chloride 0.9% [Normal Saline] 1,000 ml IV ASDIRECTED
== END 2016-10-30 17:55 | disposition home or self-care (01) ==
LOC: JP.ED 15:07
DX: G43.909 Migraine, unspecified, not intractable, without status migrainosus (principal); E86.0 Dehydration; E66.9 Obesity, unspecified; J45.909 Unspecified asthma, uncomplicated; Z79.899 Other long term (current) drug therapy; Z87.440 Personal history of urinary (tract) infections; Z86.2 Personal history of diseases of the blood and blood-forming organs and certain disorders involving the immune mechanism
CPT/HCPCS: 36415; 80053; 81001; 81025; 85025; 96361; 96374; 96375; 99284; J0780; J1200; J1885; J7040

== ENCOUNTER 2016-11-05 00:12 | Emergency (ER) | payer MEDICAID ==
[2016-11-05 00:26] VITALS: BP 117/75
[2016-11-05] MEDS ORDERED: Ketorolac 60 MG/2 ML SDV IM ONE (00:47)
--- NOTE | 2016-11-05 00:50 | EDM.PDOC ---
ED HPI GENERAL MEDICAL PROBLEM - General Chief Complaint: Lower Extremity Injury/Pain Stated Complaint: LEFT KNEE PAIN Time Seen by Provider: 11/05/16 00:44 Source of Information: Reports: Patient, RN Notes Reviewed History Limitations: Reports: No Limitations - History of Present Illness INITIAL COMMENTS - FREE TEXT/NARRATIVE: 21-year-old female presents emergency department day complaint of left knee pain , she injured herself while wrestling with her children she heard a loud popping noise downstairs difficult for her to ambulate she's not tried anything for the pain this is 30 minutes left knee Pain Score (Numeric/FACES): 9 - Related Data Allergies Allergy/AdvReac Type Severity Reaction Status Date / Time No Known Allergies Allergy Verified 07/25/16 22:43 Home Meds: Home Meds Albuterol Sulfate [Proventil Hfa] 1 - 2 puff IH Q6HR PRN 07/06/15 [History] FLUoxetine HCl [Fluoxetine HCl] 20 mg PO DAILY 10/30/16 [History] Past Medical History HEENT History: Reports: Impaired Vision, Other (See Below) Other HEENT History: vision corrected with glasses, infected cracked tooth Cardiovascular History: Reports: Other (See Below) Other Cardiovascular History: heart palpitations Respiratory History: Reports: Asthma Other Respiratory History: uses inhaler; last used unknown Gastrointestinal History: Reports: Chronic Constipation, GERD Other Gastrointestinal History: mom has crohns; Umbilical hernia Genitourinary History: Reports: STD, UTI, Recurrent MATE SHIP History: Reports: , Spontaneous Other OB/BYN History: 1st child born at 37+ weeks Musculoskeletal History: Reports: Other (See Below) Other Musculoskeletal History: knee pain Neurological History: Reports: Migraines Psychiatric History: Reports: ADD, ADHD, Anxiety, Bipolar Other Psychiatric History: no medication; "know how to control it" Endocrine/Metabolic History: Reports: Obesity/BMI 30+ Hematologic History: Reports: Anemia Other Hematologic History: recent and D&C september 22, 2014 Dermatologic History: Reports: Cellulitis Other Dermatologic History: history of cellulitis to right foot - Infectious Disease History Infectious Disease History: Reports: Chicken Pox Other Infectious Disease History: unknown - Past Surgical History GI Surgical History: Reports: Hernia Repair/Other Social & Family History - Family History Family Medical History: Noncontributory Neurological: Reports: Seizure - Tobacco Use Smoking Status *Q: Never Smoker Years of Tobacco use: 3 Packs/Tins Daily: 0 Used Tobacco, but Quit: Yes Month Tobacco Last Used: 3 1/2 years ago Second Hand Smoke Exposure: No - Caffeine Use Caffeine Use: Reports: Energy Drinks, Soda - Alcohol Use Days Per Week of Alcohol Use: 0 - Recreational Drug Use Recreational Drug Use: No - Living Situation & Occupation Living situation: Reports: , with Family Review of Systems - Review of Systems Review Of Systems: See Below Constitutional: Reports: No Symptoms Musculoskeletal: Reports: Joint Pain Skin: Reports: No Symptoms ED EXAM, GENERAL - Physical Exam Exam: See Below Free Text/Narrative:: Examination left knee I do not appreciate any erythema there is no edema to the knee Daugherty valgus maneuvers are negative Lockman's is negative anterior drawer is negative she can ambulate however she favors the right side Exam Limited By: No Limitations General Appearance: Alert, WD/WN, No Apparent Distress Course - Vital Signs Last Recorded V/S: Last Vital Signs Temp 99.0 F 11/05/16 00:30 Pulse 96 11/05/16 00:30 Resp 16 11/05/16 00:30 BP 117/75 11/05/16 00:30 Pulse Ox 95 11/05/16 00:30 - Orders/Labs/Meds Orders: Active Orders 24 hr Category Date Time Status Knee 3V Lt [CR] Stat Exams 11/05/16 00:47 Taken Meds: Medications Discontinued Medications Generic Name Dose Route Start Last Admin Trade Name Zan PRN Reason Stop Dose Admin Ketorolac Tromethamine 60 mg 11/05/16 00:47 11/05/16 00:52 Toradol IM 11/05/16 00:48 60 mg ONETIME ONE Administration Departure - Departure Time of Disposition: 01:25 Disposition: Home, Self-Care 01 Condition: Good Clinical Impression: Left knee sprain Qualifiers: Encounter type: initial encounter Involved ligament of knee: unspecified ligament Qualified Code(s): S83.92XA - Sprain of unspecified site of left knee, initial encounter - Discharge Information Referrals: Sylvie Charles CNM [Primary Care Provider] - Forms: ED Department Discharge Additional Instructions: Use Tylenol or Motrin as needed for pain control, Please followup with your primary care provider in 3-5 days if not better, please call return to the emergency department with worsening of symptoms. - My Orders Last 24 Hours: My Active Orders 11/05/16 00:47 Knee 3V Lt [CR] Stat - Assessment/Plan Last 24 Hours: My Active Orders 11/05/16 00:47 Knee 3V Lt [CR] Stat Plan: Assessment Acuity = acute Site and laterality = left knee sprain Etiology = secondary trauma Manifestations = none Location of injury = Home Lab values = knee x-ray I did review films myself I cannot appreciate any acute process, the official read from radiology is pending Plan She had good relief with the Toradol injection plan is for her to follow-up with primary care 3-5 days reevaluate if not better Patient was in agreement with the plan all questions were answered, they were instructed to return to the emergency department or call for worsening symptoms. This note was dictated using [facility] voice recognition software please call with any questions.
--- NOTE | 2016-11-05 10:46 | CR ---
Knee 3V Lt INDICATION: pain, trauma COMPARISON: None FINDINGS: 3 views. No fracture, dislocation, or other acute bony abnormality. No joint space narr owing. IMPRESSION: Negative study.
== END 2016-11-05 01:48 | disposition home or self-care (01) ==
LOC: JP.ED 00:12
DX: S83.92XA Sprain of unspecified site of left knee, initial encounter (principal); J45.909 Unspecified asthma, uncomplicated; K21.9 Gastro-esophageal reflux disease without esophagitis; E66.9 Obesity, unspecified; G43.909 Migraine, unspecified, not intractable, without status migrainosus; Z79.899 Other long term (current) drug therapy
CPT/HCPCS: 73562; 96372; 99284; J1885

== ENCOUNTER 2017-01-14 18:12 | Emergency (ER) | payer MEDICAID ==
[2017-01-14 18:26] VITALS: BP 131/89
--- NOTE | 2017-01-14 18:39 | EDM.PDOC ---
ED HPI GENERAL MEDICAL PROBLEM - General Chief Complaint: ENT Problem Stated Complaint: ASTHMA/COUGH Time Seen by Provider: 01/14/17 18:35 Source of Information: Reports: Patient, RN History Limitations: Reports: No Limitations - History of Present Illness INITIAL COMMENTS - FREE TEXT/NARRATIVE: 21 yo female with now 48 ER visits here in less than the last 4 yrs presents with nasal congestion x 3 d, and sore throat since awakening at 1400h today. No fever reported. No known exposures. No self tx. Onset: Today Onset Date: 01/14/17 Onset Time: 14:00 Duration: Hour(s):, Constant Location: Reports: Neck (throat) Quality: Reports: Burning (throat) Severity: Mild Improves with: Reports: None Worsens with: Reports: None Context: Reports: Sick Contact Associated Symptoms: Reports: Shortness of Breath (now resolved.). Denies: Chest Pain, Cough, Fever/Chills, Nausea/Vomiting, Rash Treatments BUCKRAM SEWER: Reports: Other (see below) (none) - Related Data Allergies Allergy/AdvReac Type Severity Reaction Status Date / Time No Known Allergies Allergy Verified 07/25/16 22:43 Home Meds: Home Meds Albuterol Sulfate [Proventil Hfa] 1 - 2 puff IH Q6HR PRN 07/06/15 [History] FLUoxetine HCl [Fluoxetine HCl] 20 mg PO DAILY 10/30/16 [History] Past Medical History HEENT History: Reports: Impaired Vision, Other (See Below) Other HEENT History: vision corrected with glasses, infected cracked tooth Cardiovascular History: Reports: Other (See Below) Other Cardiovascular History: heart palpitations Respiratory History: Reports: Asthma Other Respiratory History: uses inhaler; last used unknown Gastrointestinal History: Reports: Chronic Constipation, GERD Other Gastrointestinal History: mom has crohns; Umbilical hernia Genitourinary History: Reports: STD, UTI, Recurrent 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: , 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 Other OB/BYN History: 1st child born at 37+ weeks Musculoskeletal History: Reports: Other (See Below) Other Musculoskeletal History: knee pain Neurological History: Reports: Migraines Psychiatric History: Reports: ADD, ADHD, Anxiety, Bipolar Other Psychiatric History: no medication; "know how to control it" Endocrine/Metabolic History: Reports: Obesity/BMI 30+ Hematologic History: Reports: Anemia Other Hematologic History: recent and D&C september 22, 2014 Dermatologic History: Reports: Cellulitis Other Dermatologic History: history of cellulitis to right foot - Infectious Disease History Infectious Disease History: Reports: Chicken Pox Other Infectious Disease History: unknown - Past Surgical History GI Surgical History: Reports: Hernia Repair/Other Social & Family History - Family History Family Medical History: Noncontributory Neurological: Reports: Seizure - Tobacco Use Smoking Status *Q: Never Smoker Years of Tobacco use: 3 Packs/Tins Daily: 0 Used Tobacco, but Quit: Yes Month Tobacco Last Used: 3 1/2 years ago Second Hand Smoke Exposure: No - Caffeine Use Caffeine Use: Reports: Coffee, Energy Drinks, Soda - Alcohol Use Days Per Week of Alcohol Use: 0 - Recreational Drug Use Recreational Drug Use: No - Living Situation & Occupation Living situation: Reports: , with Family ED ROS ENT - Review of Systems Review Of Systems: See Below Constitutional: Reports: No Symptoms HEENT: Reports: Rhinitis, Throat Pain. Denies: Ear Discharge, Ear Pain, Hearing Loss, Nosebleed, Throat Swelling Respiratory: Reports: Shortness of Breath (now normal) Cardiovascular: Reports: No Symptoms GI/Abdominal: Reports: No Symptoms Skin: Reports: No Symptoms ED EXAM, ENT - Physical Exam Exam: See Below Exam Limited By: No Limitations General Appearance: Alert, WD/WN, No Apparent Distress, Obese Eye Exam: Bilateral Eye: Normal Inspection Ears: Normal External Exam, Normal Canal, Hearing Grossly Normal, Normal TMs Nose: No Blood, Clear Rhinorrhea, Other (nasal congestion bilaterally). No: Septal Perforation, Active Bleeding, Dried Blood Mouth/Throat: Normal Inspection, Normal Lips, Normal Oropharynx Head: Atraumatic, Normocephalic Neck: Normal Inspection, Supple, Non-Tender Respiratory/Chest: No Respiratory Distress, Lungs Clear, Normal Breath Sounds, No Accessory Muscle Use Cardiovascular: Regular Rate, Rhythm, No Edema Neurological: Alert, Oriented, CN II-XII Intact, Normal Cognition, No Motor/ Sensory Deficits Psychiatric: Normal Affect, Normal Mood Skin: Warm, Dry, Intact, Normal Color, No Rash Lymphatic: No Adenopathy Course - Vital Signs Last Recorded V/S: Last Vital Signs Temp 37.1 C 01/14/17 18:26 Pulse 120 H 01/14/17 18:26 Resp 16 01/14/17 18:26 BP 131/89 01/14/17 18:26 Pulse Ox 98 01/14/17 18:26 - Orders/Labs/Meds Orders: Active Orders 24 hr Category Date Time Status CULTURE STREP A CONFIRMATION [RM] Stat Lab 01/14/17 18:31 Results STREP SCRN A RAPID W CULT CONF [RM] Stat Lab 01/14/17 18:31 Results Departure - Departure Time of Disposition: 18:56 Disposition: Home, Self-Care 01 Condition: Good Clinical Impression: Viral URI - Discharge Information Referrals: Mimi Mistry CNM [Primary Care Provider] - Forms: ED Department Discharge Care Plan Goals: Drink ample fluids. Take acetaminophen for throat pain. Start "Cold Ease" and use as directed. Consider a nasal decongestant and use as directed. Frequent hand washing to prevent spread. - My Orders Last 24 Hours: My Active Orders 01/14/17 18:31 CULTURE STREP A CONFIRMATION [RM] Stat STREP SCRN A RAPID W CULT CONF [RM] Stat - Assessment/Plan Last 24 Hours: My Active Orders 01/14/17 18:31 CULTURE STREP A CONFIRMATION [RM] Stat STREP SCRN A RAPID W CULT CONF [RM] Stat
== END 2017-01-14 19:00 | disposition home or self-care (01) ==
LOC: JP.ED 18:12
DX: J06.9 Acute upper respiratory infection, unspecified (principal); J45.909 Unspecified asthma, uncomplicated; F31.9 Bipolar disorder, unspecified; Z87.891 Personal history of nicotine dependence; Z79.899 Other long term (current) drug therapy
CPT/HCPCS: 87081; 87430; 99284

== ENCOUNTER 2017-03-24 18:32 | Emergency (ER) | payer MEDICAID ==
[2017-03-24 18:52] VITALS: BP 137/88
--- NOTE | 2017-03-24 19:14 | EDM.PDOC ---
ED HPI GENERAL MEDICAL PROBLEM - General Chief Complaint: Respiratory Problem Stated Complaint: COLD AND FLU SYMPTOMS Time Seen by Provider: 03/24/17 19:00 Source of Information: Reports: Patient, RN History Limitations: Reports: No Limitations - History of Present Illness INITIAL COMMENTS - FREE TEXT/NARRATIVE: 21 yo female presents with URI sx's for a few weeks. Is occasionally SOB. Thinks she had a fever yesterday. Is a non-smoker. Cough is productive of clear fluid. No hx of asthma. No hx of allergic rhinitis. Has not been to the clinic. Has some mild facial pressure. Onset: Gradual Onset Date: 03/07/17 Duration: Week(s):, Getting Worse Location: Reports: Face, Chest Quality: Reports: Pressure (mild facial pressure) Severity: Mild Improves with: Reports: None Worsens with: Reports: Other (? time) Context: Reports: Other (unknown) Associated Symptoms: Reports: Cough, Fever/Chills (yesterday), Shortness of Breath (at times). 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) (none) - Related Data Allergies Allergy/AdvReac Type Severity Reaction Status Date / Time No Known Allergies Allergy Verified 03/24/17 19:00 Home Meds: Home Meds Albuterol Sulfate [Proventil Hfa] 1 - 2 puff IH Q6HR PRN 07/06/15 [History] Past Medical History HEENT History: Reports: Impaired Vision, Other (See Below) Other HEENT History: vision corrected with glasses, infected cracked tooth Cardiovascular History: Reports: Other (See Below) Other Cardiovascular History: heart palpitations Respiratory History: Reports: Asthma Other Respiratory History: uses inhaler; last used unknown Gastrointestinal History: Reports: Chronic Constipation, GERD Other Gastrointestinal History: mom has crohns; Umbilical hernia Genitourinary History: Reports: STD, UTI, Recurrent 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: , Spontaneous Other OB/BYN History: 1st child born at 37+ weeks Musculoskeletal History: Reports: Other (See Below) Other Musculoskeletal History: knee pain Neurological History: Reports: Migraines Psychiatric History: Reports: ADD, ADHD, Anxiety, Bipolar Other Psychiatric History: no medication; "know how to control it" Endocrine/Metabolic History: Reports: Obesity/BMI 30+ Hematologic History: Reports: Anemia Other Hematologic History: recent and D&C september 22, 2014 Dermatologic History: Reports: Cellulitis Other Dermatologic History: history of cellulitis to right foot - Infectious Disease History Infectious Disease History: Reports: Chicken Pox Other Infectious Disease History: unknown - Past Surgical History GI Surgical History: Reports: Hernia Repair/Other Social & Family History - Family History Family Medical History: Noncontributory Neurological: Reports: Seizure - Tobacco Use Smoking Status *Q: Unknown Ever Smoked Years of Tobacco use: 3 Packs/Tins Daily: 0 Used Tobacco, but Quit: Yes Month Tobacco Last Used: 3 1/2 years ago Second Hand Smoke Exposure: No - Caffeine Use Caffeine Use: Reports: Coffee, Energy Drinks, Soda - Alcohol Use Days Per Week of Alcohol Use: 0 - Recreational Drug Use Recreational Drug Use: No - Living Situation & Occupation Living situation: Reports: , with Family ED ROS GENERAL - Review of Systems Review Of Systems: See Below Constitutional: Reports: Fever (last yesterday) HEENT: Reports: Rhinitis, Sinus Problem. Denies: Ear Pain, Nosebleed, Throat Pain, Throat Swelling Respiratory: Reports: Shortness of Breath, Cough, Sputum (white). Denies: Wheezing, Pleuritic Chest Pain, Hemoptysis Cardiovascular: Reports: Lightheadedness (with standing) GI/Abdominal: Reports: No Symptoms : Reports: No Symptoms Musculoskeletal: Reports: No Symptoms Skin: Reports: No Symptoms Neurological: Reports: No Symptoms Psychiatric: Reports: No Symptoms ED EXAM, GENERAL - Physical Exam Exam: See Below Exam Limited By: No Limitations General Appearance: Alert, WD/WN, No Apparent Distress Eye Exam: Bilateral Eye: Normal Inspection Ears: Normal External Exam, Normal Canal, Hearing Grossly Normal, Normal TMs Ear Exam: Bilateral Ear: Auricle Normal, Canal Normal, TM normal Nose: No Blood, Clear Rhinorrhea Throat/Mouth: Normal Inspection, Normal Lips, Normal Oropharynx, Normal Voice, No Airway Compromise Head: Atraumatic, Normocephalic Neck: Normal Inspection, Supple, Non-Tender Respiratory/Chest: No Respiratory Distress, Lungs Clear, Normal Breath Sounds, No Accessory Muscle Use Cardiovascular: Regular Rate, Rhythm, No Edema GI/Abdominal: Normal Bowel Sounds, Soft, Non-Tender, No Distention Back Exam: Normal Inspection. No: CVA Tenderness (R), CVA Tenderness (L) Extremities: Normal Inspection, Normal Range of Motion, Non-Tender, No Pedal Edema Neurological: Alert, Oriented, CN II-XII Intact, Normal Cognition, No Motor/ Sensory Deficits Psychiatric: Normal Affect, Normal Mood Skin Exam: Warm, Dry, Intact, Normal Color, No Rash Lymphatic: No Adenopathy Course - Vital Signs Text/Narrative:: Orthostatic vitals-WNL's Last Recorded V/S: Last Vital Signs Temp 36.1 C 03/24/17 18:59 Pulse 127 H 03/24/17 18:59 Resp 16 03/24/17 18:59 BP 137/88 03/24/17 18:59 Pulse Ox 96 03/24/17 18:59 - Orders/Labs/Meds Orders: Active Orders 24 hr Category Date Time Status Orthostatic Vital Signs [RC] ASDIRECTED Care 03/24/17 19:08 Active Labs: Laboratory Tests 03/24/17 Range/Units 19:19 WBC 8.9 (4.5-11.0) K/uL RBC 4.68 (3.30-5.50) M/uL Hgb 13.0 (12.0-15.0) g/dL Hct 40.3 (36.0-48.0) % MCV 86 (80-98) fL MCH 28 (27-31) pg MCHC 32 (32-36) % Plt Count 376 (150-400) K/uL Departure - Departure Time of Disposition: 19:49 Disposition: Home, Self-Care 01 Condition: Good Clinical Impression: Viral URI with cough - Discharge Information Referrals: PCP,None [Primary Care Provider] - Forms: ED Department Discharge - My Orders Last 24 Hours: My Active Orders 03/24/17 19:08 Orthostatic Vital Signs [RC] ASDIRECTED - Assessment/Plan Last 24 Hours: My Active Orders 03/24/17 19:08 Orthostatic Vital Signs [RC] ASDIRECTED
== END 2017-03-24 20:18 | disposition home or self-care (01) ==
LOC: JP.ED 18:32
DX: J06.9 Acute upper respiratory infection, unspecified (principal); E66.9 Obesity, unspecified; J45.909 Unspecified asthma, uncomplicated
CPT/HCPCS: 36415; 85027; 99284

== ENCOUNTER 2017-05-07 22:20 | Emergency (ER) | payer MEDICAID ==
[2017-05-07 22:48] VITALS: BP 115/70
--- NOTE | 2017-05-08 00:04 | EDM.PDOC ---
ED HPI GENERAL MEDICAL PROBLEM - General Chief Complaint: Skin Complaint Stated Complaint: RASH Time Seen by Provider: 05/08/17 00:07 Source of Information: Reports: Patient, Family History Limitations: Reports: No Limitations - History of Present Illness INITIAL COMMENTS - FREE TEXT/NARRATIVE: pt broke out into a rash on her abdoman and her legs. This was itchy for her. This did look petiachial. The rash was all under the skin and there was no scale. She has been on lexapro for awhile but it can cause bruising and a petiachial rash. Onset: Today Duration: Hour(s): Location: Reports: Abdomen, Lower Extremity, Left, Lower Extremity, Right Associated Symptoms: Reports: No Other Symptoms denies pain Pain Score (Numeric/FACES): 0 - Related Data Allergies Allergy/AdvReac Type Severity Reaction Status Date / Time No Known Allergies Allergy Verified 03/24/17 19:00 Home Meds: Home Meds Albuterol Sulfate [Proventil Hfa] 1 - 2 puff IH Q6HR PRN 07/06/15 [History] Escitalopram Oxalate 20 mg PO DAILY 05/07/17 [History] Past Medical History HEENT History: Reports: Impaired Vision, Other (See Below) Other HEENT History: vision corrected with glasses, infected cracked tooth Cardiovascular History: Reports: Other (See Below) Other Cardiovascular History: heart palpitations Respiratory History: Reports: Asthma Other Respiratory History: uses inhaler; last used unknown Gastrointestinal History: Reports: Chronic Constipation, GERD Other Gastrointestinal History: mom has crohns; Umbilical hernia Genitourinary History: Reports: STD, UTI, Recurrent 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: , 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 Other OB/BYN History: 1st child born at 37+ weeks Musculoskeletal History: Reports: Other (See Below) Other Musculoskeletal History: knee pain Neurological History: Reports: Migraines Psychiatric History: Reports: ADD, ADHD, Anxiety, Bipolar Other Psychiatric History: no medication; "know how to control it" Endocrine/Metabolic History: Reports: Obesity/BMI 30+ Hematologic History: Reports: Anemia Other Hematologic History: recent and D&C september 22, 2014 Dermatologic History: Reports: Cellulitis Other Dermatologic History: history of cellulitis to right foot - Infectious Disease History Infectious Disease History: Reports: Chicken Pox Other Infectious Disease History: unknown - Past Surgical History GI Surgical History: Reports: Hernia Repair/Other Female Surgical History: Reports: Tubal Ligation Social & Family History - Family History Family Medical History: Noncontributory Neurological: Reports: Seizure - Tobacco Use Smoking Status *Q: Never Smoker Years of Tobacco use: 3 Packs/Tins Daily: 0 Used Tobacco, but Quit: Yes Month/Year Tobacco Last Used: 3 1/2 years ago Second Hand Smoke Exposure: Yes - Caffeine Use Caffeine Use: Reports: Coffee, Energy Drinks, Soda, Tea - Alcohol Use Days Per Week of Alcohol Use: 0 - Recreational Drug Use Recreational Drug Use: No - Living Situation & Occupation Living situation: Reports: , with Family ED ROS GENERAL - Review of Systems Review Of Systems: See Below Constitutional: Reports: No Symptoms, Other (pt has not felt ill) HEENT: Reports: No Symptoms, Other (pt does not have swollen glands or a sore throat. ) Respiratory: Reports: No Symptoms Cardiovascular: Reports: No Symptoms Endocrine: Reports: No Symptoms GI/Abdominal: Reports: No Symptoms : Reports: No Symptoms Musculoskeletal: Reports: No Symptoms Skin: Reports: No Symptoms Neurological: Reports: No Symptoms ED EXAM, SKIN/RASH Exam: See Below Text/Narrative:: pt is not ill but she broke out in a petiachial rash on her bdoman and her extremities. Exam Limited By: No Limitations General Appearance: Alert, No Apparent Distress Ears: Normal TMs Nose: Normal Inspection Throat/Mouth: Normal Inspection Head: Atraumatic Neck: Normal Inspection Respiratory/Chest: No Respiratory Distress Cardiovascular: Regular Rate, Rhythm GI/Abdominal: Soft, Non-Tender (Female) Exam: Deferred Rectal (Female) Exam: Deferred Back Exam: Normal Inspection Extremities: Normal Inspection Skin: Rash Location, Skin: Abdomen, Lower Extremity, Right, Lower Extremity, Left Characteristics: Petechial Course - Vital Signs Last Recorded V/S: Last Vital Signs Temp 36.3 C 05/07/17 22:48 Pulse 115 H 05/07/17 22:48 Resp 16 05/07/17 22:48 BP 115/70 05/07/17 22:48 Pulse Ox 98 05/07/17 22:48 - Orders/Labs/Meds Labs: Laboratory Tests 05/07/17 05/07/17 Range/Units 22:58 23:00 WBC 9.4 (4.5-11.0) K/uL RBC 4.70 (3.30-5.50) M/uL Hgb 12.8 (12.0-15.0) g/dL Hct 40.0 (36.0-48.0) % MCV 85 (80-98) fL MCH 27 (27-31) pg MCHC 32 (32-36) % Plt Count 388 (150-400) K/uL Neut % (Auto) 57 (36-66) % Lymph % (Auto) 32 (24-44) % [place] % (Auto) 9 H (2-6) % Eos % (Auto) 2 (2-4) % Baso % (Auto) 0 (0-1) % Sodium 140 (140-148) mmol/L Potassium 3.6 (3.6-5.2) mmol/L Chloride 104 (100-108) mmol/L Carbon Dioxide 26 (21-32) mmol/L Anion Gap 10.5 (5.0-14.0) mmol/L BUN 8 (7-18) mg/dL Creatinine 0.8 (0.6-1.0) mg/dL Est Cr Clr Drug Dosing 91.24 mL/min Estimated GFR (MDRD) > 60 (>60) Glucose 109 H (74-106) mg/dL Calcium 9.3 (8.5-10.1) mg/dL Total Bilirubin 0.3 (0.2-1.0) mg/dL AST 25 (15-37) U/L ALT 43 (12-78) U/L Alkaline Phosphatase 97 (46-116) U/L Total Protein 7.9 (6.4-8.2) g/dL Albumin 3.4 (3.4-5.0) g/dL Globulin 4.5 H (2.3-3.5) g/dL Albumin/Globulin Ratio 0.8 L (1.2-2.2) - Re-Assessments/Exams Free Text/Narrative Re-Assessment/Exam: 05/08/17 00:16 pt was found to have normal lab work. Departure - Departure Time of Disposition: 00:02 Disposition: Home, Self-Care 01 Condition: Fair Clinical Impression: Petechial rash - Discharge Information Referrals: Sylvie Charles CNM [Primary Care Provider] - Forms: ED Department Discharge Care Plan Goals: appt with dermatology Friday if possible. benadryl 50mg q6h prn for itching, taper on the lexapro to 1 tab every other day.
== END 2017-05-08 00:10 | disposition home or self-care (01) ==
LOC: JP.ED 22:20
DX: R23.3 Spontaneous ecchymoses (principal); E66.9 Obesity, unspecified; F90.9 Attention-deficit hyperactivity disorder, unspecified type; J45.909 Unspecified asthma, uncomplicated; Z87.440 Personal history of urinary (tract) infections; Z79.899 Other long term (current) drug therapy; Z68.37 Body mass index [BMI] 37.0-37.9, adult
CPT/HCPCS: 36415; 80053; 85025; 99283

== ENCOUNTER 2017-06-06 23:22 | Emergency (ER) | payer MEDICAID ==
[2017-06-06 23:48] VITALS: BP 128/76
[2017-06-06] MEDS ORDERED: Ketorolac 60 MG/2 ML SDV IM ONE (23:56)
--- NOTE | 2017-06-07 | EDM.PDOC ---
ED HPI GENERAL MEDICAL PROBLEM - General Chief Complaint: Back Pain or Injury Stated Complaint: FELL HURT BACK Time Seen by Provider: 06/06/17 23:45 Source of Information: Reports: Patient, Old Records, RN History Limitations: Reports: No Limitations - History of Present Illness INITIAL COMMENTS - FREE TEXT/NARRATIVE: 21 yo female stepped on one of her children's toys tonight and fell down carpeted stairs. She presents now 2 hrs later with R wrist and R post/lower rib pain. She is wearing a wrist splint on arrival that she brought from home. Walked into the ER. No other areas of pain. No analgesia taken before arrival. No gross hematuria. Slid down the stairs on her back. 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(s) Right Middle Back Pain Score (Numeric/FACES): 10 - Related Data Allergies Allergy/AdvReac Type Severity Reaction Status Date / Time No Known Allergies Allergy Verified 06/06/17 23:34 Home Meds: Home Meds Albuterol Sulfate [Proventil Hfa] 1 - 2 puff IH Q6HR PRN 07/06/15 [History] Escitalopram Oxalate 20 mg PO DAILY 05/07/17 [History] Past Medical History HEENT History: Reports: Impaired Vision, Other (See Below) Other HEENT History: vision corrected with glasses, infected cracked tooth Cardiovascular History: Reports: Other (See Below) Other Cardiovascular History: heart palpitations Respiratory History: Reports: Asthma Other Respiratory History: uses inhaler; last used unknown Gastrointestinal History: Reports: Chronic Constipation, GERD Other Gastrointestinal History: mom has crohns; Umbilical hernia Genitourinary History: Reports: STD, UTI, Recurrent 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: , 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 Other OB/BYN History: 1st child born at 37+ weeks Musculoskeletal History: Reports: Other (See Below) Other Musculoskeletal History: knee pain Neurological History: Reports: Migraines Psychiatric History: Reports: ADD, ADHD, Anxiety, Bipolar Other Psychiatric History: no medication; "know how to control it" Endocrine/Metabolic History: Reports: Obesity/BMI 30+ Hematologic History: Reports: Anemia Other Hematologic History: recent and D&C september 22, 2014 Dermatologic History: Reports: Cellulitis Other Dermatologic History: history of cellulitis to right foot - Infectious Disease History Infectious Disease History: Reports: Chicken Pox Other Infectious Disease History: unknown - Past Surgical History GI Surgical History: Reports: Hernia Repair/Other Female Surgical History: Reports: Tubal Ligation Social & Family History - Family History Family Medical History: Noncontributory Neurological: Reports: Seizure - Tobacco Use Smoking Status *Q: Former Smoker Years of Tobacco use: 3 Packs/Tins Daily: 0 Used Tobacco, but Quit: Yes Month/Year Tobacco Last Used: 2013 Second Hand Smoke Exposure: Yes - Caffeine Use Caffeine Use: Reports: Coffee, Energy Drinks, Soda, Tea - Alcohol Use Days Per Week of Alcohol Use: 0 - Recreational Drug Use Recreational Drug Use: No - Living Situation & Occupation Living situation: Reports: , with Family ED ROS GENERAL - Review of Systems Review Of Systems: See Below Constitutional: Reports: No Symptoms HEENT: Reports: No Symptoms Respiratory: Reports: Other (pain with deep breathing or coughing to the R flank area. ) Cardiovascular: Reports: No Symptoms GI/Abdominal: Reports: No Symptoms : Reports: No Symptoms Musculoskeletal: Reports: Arm Pain (R distal forearm), Back Pain (R midback) Skin: Reports: No Symptoms Neurological: Reports: No Symptoms Psychiatric: Reports: No Symptoms ED EXAM, UPPER BACK/NECK PAIN - Physical Exam Exam: See Below Exam Limited By: No Limitations General Appearance: Alert, WD/WN, No Apparent Distress, Obese Eye Exam: Bilateral Eye: Normal Inspection, PERRL Ears Exam: Normal External Exam, Normal Canal, Hearing Grossly Normal Nose Exam: Normal Inspection, Normal Mucousa, No Blood Throat/Mouth Exam: Normal Voice, No Airway Compromise Head Exam: Atraumatic, Normocephalic Neck Exam: Non-Tender, Full Range of Motion, Normal Inspection Nexus Criteria: No: Posterior, Midline Cervical Tenderness, Evidence of Intoxication, Altered Level of Consciousness, Focal Neurological Deficit Cardiovascular/Respiratory: Regular Rate, Rhythm, Normal Breath Sounds, No Respiratory Distress GI/Abdominal: Normal Bowel Sounds, Soft, Non-Tender, No Distention Back Exam: Normal Inspection, Other (R lower/posterior rib tenderness. ). 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 nml As Tested, No Motor/Sensory Deficits, Alert, Normal Mood/Affect, Oriented x 3 Psychiatric: Normal Affect, Normal Mood Skin Exam: Normal Color, Warm/Dry Course - Vital Signs Last Recorded V/S: Last Vital Signs Temp 36.7 C 06/06/17 23:36 Pulse 105 H 06/06/17 23:36 Resp 20 06/06/17 23:36 BP 128/76 06/06/17 23:36 Pulse Ox 97 06/06/17 23:36 - Orders/Labs/Meds Orders: Active Orders 24 hr Category Date Time Status Wrist Comp Min 3V Rt [CR] Stat Exams 06/06/17 23:57 Ordered Meds: Medications Discontinued Medications Generic Name Dose Route Start Last Admin Trade Name Peteq PRN Reason Stop Dose Admin Ketorolac Tromethamine 60 mg 06/06/17 23:56 06/07/17 00:03 Toradol IM 06/06/17 23:57 60 mg ONETIME ONE Administration - Radiology Interpretation Free Text/Narrative:: R wrist [id number] Departure - Departure Time of Disposition: 00:14 Disposition: Home, Self-Care 01 Condition: Good Clinical Impression: Rib pain on right side, Wrist pain, right - Discharge Information Referrals: Sylvie Charles CNM [Primary Care Provider] - Forms: ED Department Discharge - My Orders Last 24 Hours: My Active Orders 06/06/17 23:57 Wrist Comp Min 3V Rt [CR] Stat - Assessment/Plan Last 24 Hours: My Active Orders 06/06/17 23:57 Wrist Comp Min 3V Rt [CR] Stat
--- NOTE | 2017-06-09 08:43 | CR ---
Wrist Comp Min 3V Rt CLINICAL HISTORY: Pain, fall FINDINGS: There is no acute fracture or dislocation within the right wrist. Articular surfaces are s mooth. Impression: Negative
== END 2017-06-07 00:24 | disposition home or self-care (01) ==
LOC: JP.ED 23:22
DX: M25.531 Pain in right wrist (principal); R07.81 Pleurodynia; D64.9 Anemia, unspecified; J45.909 Unspecified asthma, uncomplicated; Z79.899 Other long term (current) drug therapy; Z87.891 Personal history of nicotine dependence
CPT/HCPCS: 73110; 96372; 99284; J1885

== ENCOUNTER 2017-06-21 18:48 | Emergency (ER) | payer MEDICAID ==
[2017-06-21] MEDS ORDERED: Ondansetron 4 MG Tab.DIS PO ONE (19:26)
--- NOTE | 2017-06-21 19:26 | EDM.PDOC ---
ED HPI GENERAL MEDICAL PROBLEM - General Chief Complaint: ENT Problem Stated Complaint: FAINTING SPELL/SORE THROAT Time Seen by Provider: 06/21/17 19:18 Source of Information: Reports: Patient History Limitations: Reports: No Limitations - History of Present Illness INITIAL COMMENTS - FREE TEXT/NARRATIVE: Jazmyn presents today with complaints of sore throat, difficulty swallowing, fever and chills for 4 days. She also complains of emesis x 6 today. She report chronic constipation. She denies headache, stiff neck, change in bowel/bladder function. Throat Pain Score (Numeric/FACES): 10 - Related Data Allergies Allergy/AdvReac Type Severity Reaction Status Date / Time No Known Allergies Allergy Verified 06/21/17 19:05 Home Meds: Home Meds Albuterol Sulfate [Proventil Hfa] 1 - 2 puff IH Q6HR PRN 07/06/15 [History] Escitalopram Oxalate 20 mg PO DAILY 05/07/17 [History] Past Medical History HEENT History: Reports: Impaired Vision, Other (See Below) Other HEENT History: vision corrected with glasses, infected cracked tooth Cardiovascular History: Reports: Other (See Below) Other Cardiovascular History: heart palpitations Respiratory History: Reports: Asthma Other Respiratory History: uses inhaler; last used unknown Gastrointestinal History: Reports: Chronic Constipation, GERD Other Gastrointestinal History: mom has crohns; Umbilical hernia Genitourinary History: Reports: STD, UTI, Recurrent 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: , 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 Other OB/BYN History: 1st child born at 37+ weeks Musculoskeletal History: Reports: Other (See Below) Other Musculoskeletal History: knee pain Neurological History: Reports: Migraines Psychiatric History: Reports: ADD, ADHD, Anxiety, Bipolar Other Psychiatric History: no medication; "know how to control it" Endocrine/Metabolic History: Reports: Obesity/BMI 30+ Hematologic History: Reports: Anemia Other Hematologic History: recent and D&C september 22, 2014 Dermatologic History: Reports: Cellulitis Other Dermatologic History: history of cellulitis to right foot - Infectious Disease History Infectious Disease History: Reports: Chicken Pox Other Infectious Disease History: unknown - Past Surgical History GI Surgical History: Reports: Hernia Repair/Other Female Surgical History: Reports: Tubal Ligation Social & Family History - Family History Family Medical History: Noncontributory Neurological: Reports: Seizure - Tobacco Use Smoking Status *Q: Never Smoker Second Hand Smoke Exposure: No - Caffeine Use Caffeine Use: Reports: Coffee, Energy Drinks, Soda, Tea - Alcohol Use Days Per Week of Alcohol Use: 0 - Recreational Drug Use Recreational Drug Use: No - Living Situation & Occupation Living situation: Reports: , with Family ED ROS ENT - Review of Systems Review Of Systems: See Below Constitutional: Reports: Fever, Chills, Malaise. Denies: Weakness, Diaphoresis HEENT: Reports: Throat Pain. Denies: Dental Pain, Ear Discharge, Ear Pain, Eye Pain, Sinus Problem Respiratory: Denies: Shortness of Breath, Wheezing, Cough, Sputum Cardiovascular: Reports: No Symptoms Endocrine: Reports: No Symptoms GI/Abdominal: Reports: Nausea, Vomiting : Reports: No Symptoms Musculoskeletal: Reports: No Symptoms Skin: Denies: Rash, Erythema, Wound Neurological: Reports: No Symptoms Psychiatric: Reports: No Symptoms Hematologic/Lymphatic: Reports: No Symptoms Immunologic: Reports: No Symptoms ED EXAM, ENT - Physical Exam Exam: See Below Text/Narrative:: Jazmyn is an alert and oriented 21 year old female presenting with complaints of sore throat, difficulty swallowing, fever and chills for 4 days. She also reports nausea and vomiting x 6 episodes today. Exam Limited By: No Limitations General Appearance: Alert, WD/WN, Mild Distress Eye Exam: Bilateral Eye: EOMI, PERRL Ears: Normal External Exam, Normal Canal, Hearing Grossly Normal, Normal TMs Nose: Normal Inspection, Normal Mucousa, No Blood Mouth/Throat: Normal Gums, Normal Lips, Hoarse Voice, Pharyngeal Erythema, Throat Pain, Tonsillar Erythema, Tonsillar Swelling. No: Oral Ulcers, Tonsillar Exudates, Uvular Deviation, Uvular Edema Head: Atraumatic, Normocephalic Neck: Supple, Full Range of Motion. No: Lymphadenopathy (R), Lymphadenopathy (L ) Respiratory/Chest: No Respiratory Distress, Lungs Clear, Normal Breath Sounds, No Accessory Muscle Use, Chest Non-Tender Cardiovascular: Normal Peripheral Pulses, Regular Rate, Rhythm, No Edema, No Murmur, No Rub, Other (Heart rate regular, slightly tachycardic) GI/Abdominal: Normal Bowel Sounds, Soft, Non-Tender, No Distention, No Abnormal Bruit Back: Normal Inspection, Full Range of Motion. No: CVA Tenderness (R), CVA Tenderness (L) Extremities: Normal Inspection, Normal Range of Motion, Non-Tender, No Pedal Edema, Normal Capillary Refill Neurological: Alert, Oriented, CN II-XII Intact, Normal Cognition, Normal Gait, Normal Reflexes, No Motor/Sensory Deficits Psychiatric: Normal Affect, Normal Mood Skin: Warm, Dry, Intact, Normal Color, No Rash Lymphatic: No Adenopathy Course - Vital Signs Last Recorded V/S: Last Vital Signs Temp 38.0 C 06/21/17 20:34 Pulse 117 H 06/21/17 20:44 Resp 18 06/21/17 20:44 BP 106/69 06/21/17 20:44 Pulse Ox 98 06/21/17 20:44 - Orders/Labs/Meds Orders: Active Orders 24 hr Category Date Time Status CULTURE STREP A CONFIRMATION [] Stat Lab 06/21/17 19:17 Results STREP SCRN A RAPID W CULT CONF [] Stat Lab 06/21/17 19:17 Ordered Labs: Strep screen negative Meds: Medications Discontinued Medications Generic Name Dose Route Start Last Admin Trade Name Zan PRN Reason Stop Dose Admin Ibuprofen 800 mg 06/21/17 19:43 06/21/17 19:57 Motrin PO 06/21/17 19:44 800 mg ONETIME ONE Administration Ondansetron HCl 4 mg 06/21/17 19:26 06/21/17 19:37 Zofran Odt PO 06/21/17 19:27 4 mg ONETIME ONE Administration - Re-Assessments/Exams Free Text/Narrative Re-Assessment/Exam: 06/21/17 19:47 Patient reports nausea improved, we will do a PO challenge with water and provide ibuprofen. 06/21/17 20:15 Patient reports she is filling better. 06/21/17 20:30 Patient status reviewed with her, all her questions answered. She is most likely suffering from a viral type illness. She was advised to keep herself hydrated with water. Decrease amount of caffeine intake, rest and use acetaminophen/ibuprofen for pain/fever. Patient verbalizes understanding. Departure - Departure Time of Disposition: 20:40 Disposition: Home, Self-Care 01 Condition: Fair Clinical Impression: Tonsillitis - Discharge Information Instructions: Tonsillitis, [id number] Referrals: Sylvie Charles CNM [Primary Care Provider] - Forms: ED Department Discharge Additional Instructions: You have been evaluated and treated in the emergency room for tonsillitis and nausea. Keep yourself hydrated. Take acetaminophen and ibuprofen as needed for pain/fever. Return for worsening, issues or concerns. - My Orders Last 24 Hours: My Active Orders 06/21/17 19:17 CULTURE STREP A CONFIRMATION [RM] Stat STREP SCRN A RAPID W CULT CONF [RM] Stat - Assessment/Plan Last 24 Hours: My Active Orders 06/21/17 19:17 CULTURE STREP A CONFIRMATION [RM] Stat STREP SCRN A RAPID W CULT CONF [RM] Stat Assessment:: Tonsillitis Nausea Plan: Patient evaluated and treated in the emergency room for tonsillitis and nausea. Keep herself hydrated. Take acetaminophen and ibuprofen as needed for pain/fever. Follow up with primary provider in 7 to 10 days for recheck. Return for worsening, issues or concerns.
[2017-06-21] MEDS ORDERED: Ibuprofen 800 MG Tab PO ONE (19:43)
[2017-06-21 20:45] VITALS: BP 106/69
== END 2017-06-21 20:51 | disposition home or self-care (01) ==
LOC: JP.ED 18:48
DX: J03.90 Acute tonsillitis, unspecified (principal); J45.909 Unspecified asthma, uncomplicated; E66.9 Obesity, unspecified; Z79.899 Other long term (current) drug therapy
CPT/HCPCS: 87081; 87430; 99283; A9270

== ENCOUNTER 2017-07-24 17:35 | Emergency (ER) | payer MEDICAID ==
[2017-07-24 17:53] VITALS: BP 116/65
--- NOTE | 2017-07-24 18:00 | EDM.PDOC ---
ED HPI GENERAL MEDICAL PROBLEM - General Chief Complaint: Upper Extremity Injury/Pain Stated Complaint: LEFT SHOULDER PAIN/NUMBNESS Time Seen by Provider: 07/24/17 18:00 Source of Information: Reports: Patient History Limitations: Reports: No Limitations - History of Present Illness INITIAL COMMENTS - FREE TEXT/NARRATIVE: 22-year-old female with left shoulder pain. It's been a recurring problem for her for 8 months, she has gone through physical therapy which "didn't help". It wasn't hurting earlier today but started hurting 3 hours ago. She has had x- rays but no further evaluation, and orthopedic visit. No rash, swelling, or history of trauma. Location: Reports: Upper Extremity, Left Quality: Reports: Ache, Burning Severity: Mild Worsens with: Reports: Movement Associated Symptoms: Reports: No Other Symptoms - Related Data Allergies Allergy/AdvReac Type Severity Reaction Status Date / Time No Known Allergies Allergy Verified 06/21/17 19:05 Home Meds: Home Meds Albuterol Sulfate [Proventil Hfa] 1 - 2 puff IH Q6HR PRN 07/06/15 [History] Escitalopram Oxalate 20 mg PO DAILY 05/07/17 [History] Past Medical History HEENT History: Reports: Impaired Vision, Other (See Below) Other HEENT History: vision corrected with glasses, infected cracked tooth Cardiovascular History: Reports: Other (See Below) Other Cardiovascular History: heart palpitations Respiratory History: Reports: Asthma Other Respiratory History: uses inhaler; last used unknown Gastrointestinal History: Reports: Chronic Constipation, GERD Other Gastrointestinal History: mom has crohns; Umbilical hernia Genitourinary History: Reports: STD, UTI, Recurrent 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: , 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 Other OB/BYN History: 1st child born at 37+ weeks Musculoskeletal History: Reports: Other (See Below) Other Musculoskeletal History: knee pain Neurological History: Reports: Migraines Psychiatric History: Reports: ADD, ADHD, Anxiety, Bipolar Other Psychiatric History: no medication; "know how to control it" Endocrine/Metabolic History: Reports: Obesity/BMI 30+ Hematologic History: Reports: Anemia Other Hematologic History: recent and D&C september 22, 2014 Dermatologic History: Reports: Cellulitis Other Dermatologic History: history of cellulitis to right foot - Infectious Disease History Infectious Disease History: Reports: Chicken Pox Other Infectious Disease History: unknown - Past Surgical History GI Surgical History: Reports: Hernia Repair/Other Female Surgical History: Reports: Tubal Ligation Social & Family History - Family History Family Medical History: Noncontributory Neurological: Reports: Seizure - Tobacco Use Smoking Status *Q: Current Some Day Smoker Years of Tobacco use: 5 Packs/Tins Daily: 0.5 - Caffeine Use Caffeine Use: Reports: Coffee, Soda, Tea - Recreational Drug Use Recreational Drug Use: No - Living Situation & Occupation Living situation: Reports: , with Family Review of Systems - Review of Systems Review Of Systems: See Below Constitutional: Denies: Fever Respiratory: Denies: Shortness of Breath Cardiovascular: Denies: Chest Pain GI/Abdominal: Denies: Abdominal Pain Skin: Denies: Rash Neurological: Reports: Paresthesia (Some tingling and numbness intermittently in the arm) ED EXAM, GENERAL - Physical Exam Exam: See Below Exam Limited By: No Limitations General Appearance: Alert, No Apparent Distress Respiratory/Chest: No Respiratory Distress Extremities: Other (Exam is otherwise limited to the upper extremities. They appear symmetric. The left shoulder has full active range of motion although she complains of discomfort with abduction and external rotation. She can place her hand behind her head. There is some discomfort with abduction and adduction against resistance. Findings are mild and minimal.) Course - Vital Signs Last Recorded V/S: Last Vital Signs Temp 98.0 F 07/24/17 17:52 Pulse 67 07/24/17 17:52 Resp 18 07/24/17 17:52 BP 116/65 07/24/17 17:52 Pulse Ox 95 07/24/17 17:52 - Re-Assessments/Exams Free Text/Narrative Re-Assessment/Exam: 07/24/17 18:08 Patient does not have a lot of physical findings and is asking for a work note for her significant other who is here with her. I'll place her on 40 mg of prednisone daily through the weekend and she can recheck with orthopedics next week if not improving satisfactorily. I emphasized the importance of strengthening her shoulder with exercises and staying active. Departure - Departure Time of Disposition: 18:21 Disposition: Home, Self-Care 01 Condition: Good Clinical Impression: Left shoulder tendinitis - Discharge Information Instructions: Tendinitis, [id number] Referrals: PCP,None [Primary Care Provider] - Forms: ED Department Discharge Care Plan Goals: Take 4 pills of prednisone daily with food through the weekend, and add Tylenol as well. Continue activity as tolerated and recheck next week if not improving satisfactorily.
== END 2017-07-24 18:20 | disposition home or self-care (01) ==
LOC: JP.ED 17:35
DX: M75.92 Shoulder lesion, unspecified, left shoulder (principal); F17.210 Nicotine dependence, cigarettes, uncomplicated; J45.909 Unspecified asthma, uncomplicated; F31.9 Bipolar disorder, unspecified; F41.9 Anxiety disorder, unspecified; Z79.899 Other long term (current) drug therapy
CPT/HCPCS: 99283

== ENCOUNTER 2018-03-30 20:22 | Emergency (ER) | payer MEDICAID ==
[2018-03-30 20:39] VITALS: BP 137/72
[2018-03-30] MEDS ORDERED: Ketorolac 60 MG/2 ML SDV IM ONE (20:49)
--- NOTE | 2018-03-30 21:02 | EDM.PDOC ---
ED HPI GENERAL MEDICAL PROBLEM - General Chief Complaint: Chest Pain Stated Complaint: CHEST PAINS SINCE SAT Time Seen by Provider: 03/30/18 20:45 Source of Information: Reports: Patient, Old Records, RN History Limitations: Reports: No Limitations - History of Present Illness INITIAL COMMENTS - FREE TEXT/NARRATIVE: Sternal pain for the past few days. Has been skipping work. Only taking OTC cough med as coughing is painful. No fever or SOB. 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) chest Pain Score (Numeric/FACES): 5 - Related Data Allergies Allergy/AdvReac Type Severity Reaction Status Date / Time No Known Allergies Allergy Verified 03/30/18 20:39 Home Meds: Home Meds Albuterol Sulfate [Proventil Hfa] 1 - 2 puff IH Q6HR PRN 07/06/15 [History] Escitalopram Oxalate 20 mg PO DAILY 05/07/17 [History] Past Medical History HEENT History: Reports: Impaired Vision, Other (See Below) Other HEENT History: vision corrected with glasses, infected cracked tooth Cardiovascular History: Reports: Other (See Below) Other Cardiovascular History: heart palpitations Respiratory History: Reports: Asthma Other Respiratory History: uses inhaler; last used unknown Gastrointestinal History: Reports: Chronic Constipation, GERD Other Gastrointestinal History: mom has crohns; Umbilical hernia Genitourinary History: Reports: STD, UTI, Recurrent 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: , 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: 1st child born at 37+ weeks Musculoskeletal History: Reports: Other (See Below) Other Musculoskeletal History: knee pain Neurological History: Reports: Migraines, Seizure Psychiatric History: Reports: ADD, ADHD, Anxiety, Bipolar Other Psychiatric History: no medication; "know how to control it" Endocrine/Metabolic History: Reports: Obesity/BMI 30+ Hematologic History: Reports: Anemia Other Hematologic History: recent and D&C september 22, 2014 Dermatologic History: Reports: Cellulitis Other Dermatologic History: history of cellulitis to right foot - Infectious Disease History Infectious Disease History: Reports: Chicken Pox Other Infectious Disease History: unknown - Past Surgical History GI Surgical History: Reports: Hernia Repair/Other Female Surgical History: Reports: Tubal Ligation Social & Family History - Family History Family Medical History: Noncontributory Neurological: Reports: Seizure - Tobacco Use Smoking Status *Q: Never Smoker - Caffeine Use Caffeine Use: Reports: Energy Drinks - Recreational Drug Use Recreational Drug Use: No - Living Situation & Occupation Living situation: Reports: , with Family ED ROS GENERAL - Review of Systems Review Of Systems: See Below Constitutional: Reports: No Symptoms HEENT: Reports: No Symptoms Respiratory: Reports: Cough (infrequent, dry) Cardiovascular: Reports: Chest Pain (sternal) Endocrine: Reports: No Symptoms GI/Abdominal: Reports: No Symptoms : Reports: No Symptoms Musculoskeletal: Reports: No Symptoms Skin: Reports: No Symptoms Neurological: Reports: No Symptoms ED EXAM, GENERAL - Physical Exam Exam: See Below Exam Limited By: No Limitations General Appearance: Alert, WD/WN, No Apparent Distress Eye Exam: Bilateral Eye: Normal Inspection Ears: Normal External Exam, Normal Canal, Hearing Grossly Normal Ear Exam: Bilateral Ear: Auricle Normal, Canal Normal Nose: Normal Inspection, No Blood Throat/Mouth: Normal Inspection, Normal Oropharynx, Normal Voice, No Airway Compromise Head: Atraumatic, Normocephalic Neck: Normal Inspection Respiratory/Chest: No Respiratory Distress, Lungs Clear, Normal Breath Sounds, No Accessory Muscle Use, Other (sternal tenderness). No: Chest Non-Tender Cardiovascular: Regular Rate, Rhythm, No Edema GI/Abdominal: Normal Bowel Sounds, Soft, Non-Tender, No Distention Extremities: Normal Inspection, Normal Range of Motion, Non-Tender, No Pedal Edema Neurological: Alert, Oriented, CN II-XII Intact, Normal Cognition, No Motor/ Sensory Deficits Psychiatric: Normal Affect, Normal Mood Skin Exam: Warm, Dry, Intact, Normal Color, No Rash Course - Vital Signs Last Recorded V/S: Last Vital Signs Temp 36.5 C 03/30/18 20:38 Pulse 82 03/30/18 20:38 Resp 16 03/30/18 20:38 BP 137/72 03/30/18 20:38 Pulse Ox 96 03/30/18 20:38 - Orders/Labs/Meds Meds: Medications Discontinued Medications Generic Name Dose Route Start Last Admin Trade Name Freq PRN Reason Stop Dose Admin Ketorolac Tromethamine 60 mg 02/18/19 20:49 Toradol IM 03/30/18 20:50 ONETIME ONE Departure - Departure Time of Disposition: 21:00 Disposition: Home, Self-Care 01 Condition: Good Clinical Impression: Costochondritis Instructions: Costochondritis, [id number] Referrals: PCP,None [Primary Care Provider] - Additional Instructions: Take Aleve(generic) 2 every 8hrs with food. Add acetaminophen as needed. Recheck in the clinic before the end of the week.
== END 2018-03-30 21:20 | disposition home or self-care (01) ==
LOC: JP.ED 20:22
DX: M94.0 Chondrocostal junction syndrome [Tietze] (principal); F41.9 Anxiety disorder, unspecified; F31.9 Bipolar disorder, unspecified; F90.9 Attention-deficit hyperactivity disorder, unspecified type; Z79.899 Other long term (current) drug therapy
CPT/HCPCS: 99285; J1885

== ENCOUNTER 2018-04-18 22:06 | Emergency (ER) | payer MEDICAID ==
[2018-04-18 22:26] VITALS: BP 124/72
--- NOTE | 2018-04-18 22:57 | EDM.PDOC ---
ED HPI GENERAL MEDICAL PROBLEM - General Chief Complaint: Upper Extremity Injury/Pain Stated Complaint: RIGHT WRIST PAIN Time Seen by Provider: 04/18/18 22:25 Source of Information: Reports: Patient History Limitations: Reports: No Limitations - History of Present Illness INITIAL COMMENTS - FREE TEXT/NARRATIVE: 22-year-old well-known to this emergency department presents with concerns of right-sided wrist pain. Reports that she noticed it upon awakening from sleep 2 days ago. Describes an achy pain in her right wrist coming up the lateral part of her right forearm. It does not radiate. It is worse on movement of the wrist. She denies any trauma. She has no history of similar pain in the past. She does report a lot of repetitive movements during her work at [employer]. Reports that range of motion and sensation are normal in her right hand. right wrist Pain Score (Numeric/FACES): 9 - Related Data Allergies Allergy/AdvReac Type Severity Reaction Status Date / Time No Known Allergies Allergy Verified 04/18/18 22:42 Home Meds: Home Meds Albuterol Sulfate [Proventil Hfa] 1 - 2 puff IH Q6HR PRN 07/06/15 [History] Escitalopram Oxalate 20 mg PO DAILY 05/07/17 [History] Past Medical History HEENT History: Reports: Impaired Vision, Other (See Below) Other HEENT History: vision corrected with glasses, infected cracked tooth Cardiovascular History: Reports: Other (See Below) Other Cardiovascular History: heart palpitations Respiratory History: Reports: Asthma Other Respiratory History: uses inhaler; last used unknown Gastrointestinal History: Reports: Chronic Constipation, GERD Other Gastrointestinal History: mom has crohns; Umbilical hernia Genitourinary History: Reports: STD, UTI, Recurrent 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: , 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 Musculoskeletal History: Reports: Other (See Below) Other Musculoskeletal History: knee pain Neurological History: Reports: Migraines, Seizure Psychiatric History: Reports: ADD, ADHD, Anxiety, Bipolar Other Psychiatric History: no medication; "know how to control it" Endocrine/Metabolic History: Reports: Obesity/BMI 30+ Hematologic History: Reports: Anemia Other Hematologic History: recent and D&C september 22, 2014 Dermatologic History: Reports: Cellulitis Other Dermatologic History: history of cellulitis to right foot - Infectious Disease History Infectious Disease History: Reports: Chicken Pox Other Infectious Disease History: unknown - Past Surgical History GI Surgical History: Reports: Hernia Repair/Other Female Surgical History: Reports: Tubal Ligation Social & Family History - Family History Family Medical History: Noncontributory Neurological: Reports: Seizure - Tobacco Use Smoking Status *Q: Current Every Day Smoker Years of Tobacco use: 11 Packs/Tins Daily: 0.5 - Caffeine Use Caffeine Use: Reports: Coffee, Energy Drinks, Soda, Tea - Recreational Drug Use Recreational Drug Use: No - Living Situation & Occupation Living situation: Reports: , with Family Review of Systems - Review of Systems Review Of Systems: See Below Constitutional: Reports: No Symptoms Eyes: Reports: No Symptoms Ears: Reports: No Symptoms Nose: Reports: No Symptoms Mouth/Throat: Reports: No Symptoms Respiratory: Reports: No Symptoms Cardiovascular: Reports: No Symptoms GI/Abdominal: Reports: No Symptoms Genitourinary: Reports: No Symptoms Musculoskeletal: Reports: Other (wrist pain) Skin: Reports: No Symptoms Neurological: Reports: No Symptoms Psychiatric: Reports: No Symptoms ED EXAM, GENERAL - Physical Exam Exam: See Below Exam Limited By: No Limitations General Appearance: Alert Ears: Normal External Exam Nose: Normal Inspection Throat/Mouth: Normal Inspection Head: Atraumatic, Normocephalic Neck: Normal Inspection Respiratory/Chest: No Respiratory Distress Cardiovascular: Regular Rate, Rhythm GI/Abdominal: Soft, Non-Tender Back Exam: Normal Inspection Extremities: Other (right wrist: No swelling or deformity. Diffuse tenderness most prominent mid forearm. No snuffbox tenderness. Distal sensation and circulation is intact throughout the right hand.) Neurological: Alert, Oriented Psychiatric: Normal Affect Skin Exam: Warm, Dry Course - Vital Signs Last Recorded V/S: Last Vital Signs Temp 36.1 C 04/18/18 22:27 Pulse 89 04/18/18 22:27 Resp 16 04/18/18 22:27 BP 124/72 04/18/18 22:27 Pulse Ox 97 04/18/18 22:27 - Re-Assessments/Exams Free Text/Narrative Re-Assessment/Exam: 22-year-old presents with concerns of atraumatic right forearm and wrist pain Normal physical exam. Frequently presents to the ED for right concerns. Perhaps she is having some discomfort due to overuse injury. She has been instructed to immobilize the wrist for comfort and use OTC pain medications. No need for imaging She'll follow-up with her primary doctor 04/18/18 23:09 Departure - Departure Time of Disposition: 22:56 Disposition: Home, Self-Care 01 Condition: Good Clinical Impression: Wrist pain, right - Discharge Information *PRESCRIPTION DRUG MONITORING PROGRAM REVIEWED*: No *COPY OF PRESCRIPTION DRUG MONITORING REPORT IN PATIENT WHITNEY: No Instructions: Wrist Pain, Adult Referrals: PCP,None [Primary Care Provider] - Forms: ED Department Discharge Additional Instructions: Use a wrist immobilizer as needed Follow up with your primary doctor for persistent symptoms
== END 2018-04-18 23:08 | disposition home or self-care (01) ==
LOC: JP.ED 22:06
DX: M25.531 Pain in right wrist (principal); F17.210 Nicotine dependence, cigarettes, uncomplicated; F31.9 Bipolar disorder, unspecified; F41.9 Anxiety disorder, unspecified; Z79.899 Other long term (current) drug therapy; K21.9 Gastro-esophageal reflux disease without esophagitis
CPT/HCPCS: 99283

== ENCOUNTER 2018-06-13 13:01 | Emergency (ER) | payer MEDICAID ==
[2018-06-13 13:26] VITALS: BP 136/81
--- NOTE | 2018-06-13 14:24 | EDM.PDOC ---
ED HPI GENERAL MEDICAL PROBLEM - General Chief Complaint: General Stated Complaint: SORE THROAT Time Seen by Provider: 06/13/18 14:05 Source of Information: Reports: Patient, Old Records, RN History Limitations: Reports: No Limitations - History of Present Illness INITIAL COMMENTS - FREE TEXT/NARRATIVE: 22 yo female presents with a couple day hx of progressive mild sore throat and hoarseness. No fever. Occasional cough. No SOB. Some stuffiness. No self tx. Has not tried to get into the ER. No hx of allergies. Onset: Gradual Onset Date: 06/10/18 Duration: Day(s):, Getting Worse Location: Reports: Neck (throat) Quality: Reports: Dull Severity: Mild Improves with: Reports: None Worsens with: Reports: None Context: Reports: Other (See HPI) Associated Symptoms: Reports: Cough (rare). Denies: Fever/Chills, Nausea/ Vomiting Treatments TRAUMA NURSE: Reports: Other (see below) (none) neck Pain Score (Numeric/FACES): 4 - Related Data Allergies Allergy/AdvReac Type Severity Reaction Status Date / Time No Known Allergies Allergy Verified 04/18/18 22:42 Home Meds: Home Meds Albuterol Sulfate [Proventil Hfa] 1 - 2 puff IH Q6HR PRN 07/06/15 [History] Fluticasone/Salmeterol [Advair 250-50 Diskus] 1 puff INH BID 06/13/18 [History] buPROPion [buPROPion XL] 1 tab PO DAILY 06/13/18 [History] Past Medical History HEENT History: Reports: Impaired Vision, Other (See Below) Other HEENT History: vision corrected with glasses, infected cracked tooth Cardiovascular History: Reports: Other (See Below) Other Cardiovascular History: heart palpitations Respiratory History: Reports: Asthma Other Respiratory History: uses inhaler; last used unknown Gastrointestinal History: Reports: Chronic Constipation, GERD Other Gastrointestinal History: mom has crohns; Umbilical hernia Genitourinary History: Reports: STD, UTI, Recurrent 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: , 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 OFFICE 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 History: 1st child born at 37+ weeks Musculoskeletal History: Reports: Other (See Below) Other Musculoskeletal History: knee pain Neurological History: Reports: Migraines, Seizure Psychiatric History: Reports: ADD, ADHD, Anxiety, Bipolar Other Psychiatric History: no medication; "know how to control it" Endocrine/Metabolic History: Reports: Obesity/BMI 30+ Hematologic History: Reports: Anemia Other Hematologic History: recent and D&C september 22, 2014 Dermatologic History: Reports: Cellulitis Other Dermatologic History: history of cellulitis to right foot - Infectious Disease History Infectious Disease History: Reports: Chicken Pox Other Infectious Disease History: unknown - Past Surgical History GI Surgical History: Reports: Hernia Repair/Other Female Surgical History: Reports: Tubal Ligation Social & Family History - Family History Family Medical History: Noncontributory Neurological: Reports: Seizure - Tobacco Use Smoking Status *Q: Light Tobacco Smoker Years of Tobacco use: 5 Packs/Tins Daily: 0.2 Second Hand Smoke Exposure: Yes - Caffeine Use Caffeine Use: Reports: Coffee, Energy Drinks, Soda - Recreational Drug Use Recreational Drug Use: No - Living Situation & Occupation Living situation: Reports: , with Family ED ROS GENERAL - Review of Systems Review Of Systems: See Below Constitutional: Reports: No Symptoms HEENT: Reports: Rhinitis, Other (mild hoarseness.) Respiratory: Reports: Cough (rare). Denies: Shortness of Breath, Wheezing, Sputum Cardiovascular: Reports: No Symptoms Skin: Reports: No Symptoms ED EXAM, GENERAL - Physical Exam Exam: See Below Exam Limited By: No Limitations General Appearance: Alert, WD/WN, No Apparent Distress, Obese Eye Exam: Bilateral Eye: Normal Inspection Ears: Normal External Exam, Normal Canal, Hearing Grossly Normal, Normal TMs Ear Exam: Bilateral Ear: Auricle Normal, Canal Normal Nose: Normal Inspection, Clear Rhinorrhea, Other (pale nasal mucosa with congestion.) Throat/Mouth: Normal Inspection, Normal Lips, Normal Oropharynx, Normal Voice, No Airway Compromise Head: Atraumatic, Normocephalic Neck: Normal Inspection Respiratory/Chest: No Respiratory Distress, Lungs Clear, Normal Breath Sounds, No Accessory Muscle Use, Chest Non-Tender. No: Respiratory Distress, Decreased Breath Sounds, Rales, Rhonchi, Wheezing, Accessory Muscle Use, Retractions, Prolonged Expiration GI/Abdominal: Normal Bowel Sounds, Soft, Non-Tender, No Distention Back Exam: Normal Inspection. No: CVA Tenderness (R), CVA Tenderness (L) Extremities: Normal Inspection, Normal Range of Motion, Non-Tender, No Pedal Edema Neurological: Alert, Oriented, CN II-XII Intact, Normal Cognition, No Motor/ Sensory Deficits Psychiatric: Normal Affect, Normal Mood Skin Exam: Warm, Dry, Intact, Normal Color, No Rash Lymphatic: No Adenopathy Course - Vital Signs Last Recorded V/S: Last Vital Signs Temp 36.7 C 06/13/18 13:39 Pulse 71 06/13/18 13:39 Resp 13 06/13/18 13:39 BP 136/81 06/13/18 13:39 Pulse Ox 98 06/13/18 13:39 - Orders/Labs/Meds Orders: Active Orders 24 hr Category Date Time Status CULTURE STREP A CONFIRMATION [RM] Stat Lab 06/13/18 13:03 Results STREP SCRN A RAPID W CULT CONF [RM] Stat Lab 06/13/18 13:03 Results Departure - Departure Time of Disposition: 14:23 Disposition: Home, Self-Care 01 Condition: Good Clinical Impression: Allergic rhinitis with postnasal drip, Laryngitis - Discharge Information *PRESCRIPTION DRUG MONITORING PROGRAM REVIEWED*: No *COPY OF PRESCRIPTION DRUG MONITORING REPORT IN PATIENT WHITNEY: No Instructions: Nasal Allergies, [id number] Referrals: Cheri Faith RN [Primary Care Provider] - Additional Instructions: Take cetirizine or fexofenadine daily during the season your allergies bother you. Recheck with your doctor as needed. - My Orders Last 24 Hours: My Active Orders 06/13/18 13:03 CULTURE STREP A CONFIRMATION [RM] Stat STREP SCRN A RAPID W CULT CONF [RM] Stat - Assessment/Plan Last 24 Hours: My Active Orders 06/13/18 13:03 CULTURE STREP A CONFIRMATION [RM] Stat STREP SCRN A RAPID W CULT CONF [RM] Stat
== END 2018-06-13 14:54 | disposition home or self-care (01) ==
LOC: JP.ED 13:01
DX: J04.0 Acute laryngitis (principal); F17.210 Nicotine dependence, cigarettes, uncomplicated; J45.909 Unspecified asthma, uncomplicated; Z79.899 Other long term (current) drug therapy
CPT/HCPCS: 87081; 87430; 99283

== ENCOUNTER 2019-01-02 00:01 | Emergency (ER) | payer MEDICAID, OTHER ==
[2019-01-02 00:17] VITALS: BP 134/87; PULSE 115
[2019-01-02] MEDS ORDERED: Cyclobenzaprine 10 MG Tab PO ONE (00:47)
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
== END 2019-01-02 01:38 | disposition home or self-care (01) ==
LOC: JP.ED 00:01
DX: S13.4XXA Sprain of ligaments of cervical spine, initial encounter (principal); J45.909 Unspecified asthma, uncomplicated; F41.9 Anxiety disorder, unspecified; F31.9 Bipolar disorder, unspecified; E66.9 Obesity, unspecified; Z68.36 Body mass index [BMI] 36.0-36.9, adult; Z87.891 Personal history of nicotine dependence; Z79.899 Other long term (current) drug therapy; V89.2XXA Person injured in unspecified motor-vehicle accident, traffic, initial encounter
CPT/HCPCS: 99283; A9270

== ENCOUNTER 2019-01-26 22:01 | Emergency (ER) | payer MEDICAID ==
[2019-01-26 22:16] VITALS: BP 129/80; PULSE 94
--- NOTE | 2019-01-26 22:43 | EDM.PDOC ---
ED HPI GENERAL MEDICAL PROBLEM - General Chief Complaint: Lower Extremity Injury/Pain Stated Complaint: FOOT INJURY Time Seen by Provider: 01/26/19 22:05 Source of Information: Reports: Patient History Limitations: Reports: No Limitations - History of Present Illness INITIAL COMMENTS - FREE TEXT/NARRATIVE: 23-year-old with history of congenital abnormality of the right foot presents with atraumatic right foot pain. 3 days ago she began noticing intermittent, sharp, tinges of pain that shoots from her foot up into her calf. These will last for several minutes and then go away. She has been working more hours on her feet at [employer]. She otherwise she cannot identify any traumatic injuries , she was laying around when it first happened. She has no history of similar pain in the past. No history of gout. Right Foot Pain Score (Numeric/FACES): 7 - Related Data Allergies Allergy/AdvReac Type Severity Reaction Status Date / Time No Known Allergies Allergy Verified 01/26/19 22:11 Home Meds: Home Meds Albuterol Sulfate [Proventil Hfa] 1 - 2 puff IH Q6HR PRN 07/06/15 [History] Fluticasone/Salmeterol [Advair 250-50 Diskus] 1 puff INH BID 06/13/18 [History] buPROPion [buPROPion XL] 1 tab PO DAILY 06/13/18 [History] Past Medical History HEENT History: Reports: Impaired Vision, Other (See Below) Other HEENT History: vision corrected with glasses, infected cracked tooth Cardiovascular History: Reports: Other (See Below) Other Cardiovascular History: heart palpitations Respiratory History: Reports: Asthma Other Respiratory History: uses inhaler; last used unknown Gastrointestinal History: Reports: Chronic Constipation, GERD Other Gastrointestinal History: mom has crohns; Umbilical hernia Genitourinary History: Reports: STD, UTI, Recurrent 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: , 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: 1st child born at 37+ weeks Musculoskeletal History: Reports: Other (See Below) Other Musculoskeletal History: knee pain Neurological History: Reports: Concussion, Migraines, Seizure Psychiatric History: Reports: ADD, ADHD, Anxiety, Bipolar Other Psychiatric History: no medication; "know how to control it" Endocrine/Metabolic History: Reports: Obesity/BMI 30+ Hematologic History: Reports: Anemia Other Hematologic History: recent and D&C september 22, 2014 Dermatologic History: Reports: Cellulitis Other Dermatologic History: history of cellulitis to right foot - Infectious Disease History Infectious Disease History: Reports: Chicken Pox Other Infectious Disease History: unknown - Past Surgical History GI Surgical History: Reports: Hernia Repair/Other Female Surgical History: Reports: Tubal Ligation Social & Family History - Family History Family Medical History: Noncontributory Neurological: Reports: Seizure - Tobacco Use Smoking Status *Q: Current Some Day Smoker Years of Tobacco use: 6 Packs/Tins Daily: 0.2 Used Tobacco, but Quit: No - Caffeine Use Caffeine Use: Reports: Coffee, Energy Drinks, Soda - Recreational Drug Use Recreational Drug Use: No - Living Situation & Occupation Living situation: Reports: , with Family Review of Systems - Review of Systems Review Of Systems: See Below Constitutional: Reports: No Symptoms Eyes: Reports: No Symptoms Ears: Reports: No Symptoms Nose: Reports: No Symptoms Mouth/Throat: Reports: No Symptoms Respiratory: Reports: No Symptoms Cardiovascular: Reports: No Symptoms GI/Abdominal: Reports: No Symptoms Genitourinary: Reports: No Symptoms Musculoskeletal: Reports: Foot Pain Skin: Reports: No Symptoms Neurological: Reports: No Symptoms Psychiatric: Reports: No Symptoms ED EXAM, GENERAL - Physical Exam Exam: See Below Exam Limited By: No Limitations General Appearance: Alert, No Apparent Distress Ears: Normal External Exam Nose: Normal Inspection Throat/Mouth: Normal Inspection Head: Atraumatic, Normocephalic Neck: Normal Inspection Respiratory/Chest: No Respiratory Distress Cardiovascular: Regular Rate, Rhythm GI/Abdominal: No Distention Back Exam: Normal Inspection Extremities: Normal Inspection, Other (right foot without deformity, swelling, bruising, erythema, tenderness to palpation,or pain at the base of the great toe.) Psychiatric: Normal Affect, Normal Mood Skin Exam: Warm, Dry Course - Vital Signs Last Recorded V/S: Last Vital Signs Temp 36.3 C 01/26/19 22:15 Pulse 94 01/26/19 22:15 Resp 14 01/26/19 22:15 BP 129/80 01/26/19 22:15 Pulse Ox 96 01/26/19 22:15 - Re-Assessments/Exams Free Text/Narrative Re-Assessment/Exam: 23-year-old presents with concerns of intermittent atraumatic right foot pain. 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 No evidence of cellulitis or infected joint, this isn't gout, not consistent with plantar fasciitis. Overall there does not appear to be an urgent/emergent etiology of the patient' s complaint. I have encouraged her to follow up with a assembler hydraulic backhoe. NSAIDs when she has episodes of the pain. 01/26/19 22:47 Departure - Departure Time of Disposition: 22:41 Disposition: Home, Self-Care 01 Clinical Impression: Foot pain Qualifiers: Laterality: right Qualified Code(s): M79.671 - Pain in right foot - Discharge Information *PRESCRIPTION DRUG MONITORING PROGRAM REVIEWED*: No *COPY OF PRESCRIPTION DRUG MONITORING REPORT IN PATIENT WHITNEY: No Instructions: Foot Pain Referrals: Mimi Mistry CNM [Primary Care Provider] - Forms: ED Department Discharge Additional Instructions: we recommend that you see a assembler hydraulic backhoe about your foot pain, as you may benefit from specialized orthotics. please take Tylenol and ibuprofen when you are having the pain. Sepsis Event Note - Evaluation Sepsis Screening Result: No Definite Risk - Focused Exam Vital Signs: Vital Signs Temp Pulse Resp BP Pulse Ox 01/26/19 22:15 36.3 C 94 14 129/80 96 Date Exam was Performed: 01/26/19 Time Exam was Performed: 22:44
== END 2019-01-26 22:58 | disposition home or self-care (01) ==
LOC: JP.ED 22:01
DX: M79.671 Pain in right foot (principal)
CPT/HCPCS: 99283

== ENCOUNTER 2019-01-30 23:59 | Emergency (ER) | payer MEDICAID ==
[2019-01-31 00:14] VITALS: BP 130/70; PULSE 88
[2019-01-31] MEDS ORDERED: Ibuprofen 600 MG Tab PO ONE (00:34)
--- NOTE | 2019-01-31 01:04 | EDM.PDOC ---
ED HPI GENERAL MEDICAL PROBLEM - General Chief Complaint: Upper Extremity Injury/Pain Stated Complaint: FALL INJURING LEFT POINTER FINGER Time Seen by Provider: 01/31/19 00:57 Source of Information: Reports: Patient History Limitations: Reports: No Limitations - History of Present Illness INITIAL COMMENTS - FREE TEXT/NARRATIVE: pt fell and she is having pain in her left index finger and wrist. She thinks she jammed the finger. Onset: Today, Sudden Duration: Hour(s): Location: Reports: Upper Extremity, Left Left Finger-Index Pain Score (Numeric/FACES): 9 - Related Data Allergies Allergy/AdvReac Type Severity Reaction Status Date / Time No Known Allergies Allergy Verified 01/31/19 00:14 Home Meds: Home Meds Albuterol Sulfate [Proventil Hfa] 1 - 2 puff IH Q6HR PRN 07/06/15 [History] Fluticasone/Salmeterol [Advair 250-50 Diskus] 1 puff INH BID 06/13/18 [History] buPROPion [buPROPion XL] 1 tab PO DAILY 06/13/18 [History] Past Medical History HEENT History: Reports: Impaired Vision, Other (See Below) Other HEENT History: vision corrected with glasses, infected cracked tooth Cardiovascular History: Reports: Other (See Below) Other Cardiovascular History: heart palpitations Respiratory History: Reports: Asthma Other Respiratory History: uses inhaler; last used unknown Gastrointestinal History: Reports: Chronic Constipation, GERD Other Gastrointestinal History: mom has crohns; Umbilical hernia Genitourinary History: Reports: STD, UTI, Recurrent 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: , 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: 1st child born at 37+ weeks Musculoskeletal History: Reports: Other (See Below) Other Musculoskeletal History: knee pain Neurological History: Reports: Concussion, Migraines, Seizure Psychiatric History: Reports: ADD, ADHD, Anxiety, Bipolar Other Psychiatric History: no medication; "know how to control it" Endocrine/Metabolic History: Reports: Obesity/BMI 30+ Hematologic History: Reports: Anemia Other Hematologic History: recent and D&C september 22, 2014 Dermatologic History: Reports: Cellulitis Other Dermatologic History: history of cellulitis to right foot - Infectious Disease History Infectious Disease History: Reports: Chicken Pox Other Infectious Disease History: unknown - Past Surgical History GI Surgical History: Reports: Hernia Repair/Other Female Surgical History: Reports: Tubal Ligation Social & Family History - Family History Family Medical History: Noncontributory Neurological: Reports: Seizure - Tobacco Use Tobacco Use Comment: current some day smoker - Caffeine Use Caffeine Use: Reports: Coffee, Soda, Tea - Recreational Drug Use Recreational Drug Use: No - Living Situation & Occupation Living situation: Reports: , with Family Review of Systems - Review of Systems Review Of Systems: See Below Constitutional: Reports: No Symptoms Eyes: Reports: No Symptoms Ears: Reports: No Symptoms Nose: Reports: No Symptoms Mouth/Throat: Reports: No Symptoms Respiratory: Reports: No Symptoms Cardiovascular: Reports: No Symptoms Musculoskeletal: Reports: Other (pain in left index finger and wrist) Skin: Reports: No Symptoms ED EXAM, GENERAL - Physical Exam Exam: See Below Free Text/Narrative:: pt fell ans she has pain in left index finger and wrist. Extremities: Other (pt has pain in the left index finger and wrist. There is no swelling present. ) Neurological: Alert, Oriented, Normal Cognition Psychiatric: Normal Affect Course - Vital Signs Last Recorded V/S: Last Vital Signs Temp 37.1 C 01/31/19 00:12 Pulse 88 01/31/19 00:12 Resp 16 01/31/19 00:12 BP 130/70 01/31/19 00:12 Pulse Ox 96 01/31/19 00:12 - Orders/Labs/Meds Orders: Active Orders 24 hr Category Date Time Status Fingers Second Digit Lt F1 [CR] Stat Exams 01/31/19 00:21 Ordered Wrist 2V Lt [CR] Stat Exams 01/31/19 00:21 Taken Meds: Medications Discontinued Medications Generic Name Dose Route Start Last Admin Trade Name Zan PRN Reason Stop Dose Admin Ibuprofen 600 mg 01/31/19 00:34 01/31/19 00:39 Motrin PO 01/31/19 00:35 600 mg ONETIME ONE Administration - Re-Assessments/Exams Free Text/Narrative Re-Assessment/Exam: 01/31/19 01:00 xrays were obtained and no fractures were present. Departure - Departure Time of Disposition: 01:04 Disposition: Home, Self-Care 01 Condition: Fair Clinical Impression: Sprain, finger - Discharge Information Referrals: Mimi Mistry CNM [Primary Care Provider] - Care Plan Goals: splint was appled for comfort and should not be used more than 3 days. elevate, cool pack motrin for pain Sepsis Event Note - Evaluation Sepsis Screening Result: No Definite Risk - Focused Exam Vital Signs: Vital Signs Temp Pulse Resp BP Pulse Ox 01/31/19 00:12 37.1 C 88 16 130/70 96 Date Exam was Performed: 01/31/19 Time Exam was Performed: 00:56 - My Orders Last 24 Hours: My Active Orders 01/31/19 00:21 Fingers Second Digit Lt F1 [CR] Stat Wrist 2V Lt [CR] Stat - Assessment/Plan Last 24 Hours: My Active Orders 01/31/19 00:21 Fingers Second Digit Lt F1 [CR] Stat Wrist 2V Lt [CR] Stat
--- NOTE | 2019-01-31 01:12 | CRLCR ---
INDICATION: Pain in left wrist and finger TECHNIQUE: Finger radiograph 3 views left 2nd COMPARISON: None FINDINGS: Bone: No acute fractures or aggressive bone lesions are identified. Joint: The metacarpophalangeal and interphalangeal joints are normal in appearance. Soft tissue: Unremarkable. No radiopaque foreign bodies are seen. IMPRESSION: 1. No acute osseous injuries or abnormalities are noted. Dictated by: Wil Marrero MD @ 01/31/2019 01:11:18 (Electronically Signed)
--- NOTE | 2019-01-31 01:12 | CRLCR ---
INDICATION: Pain in left wrist and finger TECHNIQUE: Wrist radiograph 2 views left COMPARISON: None FINDINGS: Bone: No acute fractures or aggressive bone lesions are identified. Joint: The radiocarpal, carpal, and carpometacarpal joints are unremarkable in appearance. Soft tissue: Unremarkable. No radiopaque foreign bodies are seen. IMPRESSION: 1. No acute osseous injuries or abnormalities are noted. Dictated by: Wil Marrero MD @ 01/31/2019 01:10:53 (Electronically Signed)
== END 2019-01-31 01:29 | disposition home or self-care (01) ==
LOC: JP.ED 23:59
DX: M79.645 Pain in left finger(s) (principal)
CPT/HCPCS: 73100; 73140; 99283; A9270

== ENCOUNTER 2019-02-22 06:56 | Observation (INO) | payer MEDICAID ==
[2019-02-22] MEDS ORDERED: Albuterol/Ipratropium 3.0-0.5 MG/3 ML Neb Soln NEB ONE (07:44)
[2019-02-22] MEDS ORDERED: Dextrose 5%-Lactated Ringers 1,000 ML IV SCH (07:45)
[2019-02-22] MEDS ORDERED: Acetaminophen 500 MG Tab PO ONE (07:46)
[2019-02-22] MEDS ORDERED: Succinylcholine 200 MG/10 ML MDV ONE (08:21)
[2019-02-22] MEDS ORDERED: Rocuronium 50 MG/5 ML Vial ONE (08:21)
[2019-02-22] MEDS ORDERED: Dexamethasone 4 MG/ML SDV ONE (08:21)
[2019-02-22] MEDS ORDERED: Propofol 200 MG/20 ML SDV ONE (08:21)
[2019-02-22] MEDS ORDERED: Neostigmine Methylsulfate 1 MG/ML 5 ML Syringe ONE (08:21)
[2019-02-22] MEDS ORDERED: Glycopyrrolate 0.2 MG/ML 5 ML MDV ONE (08:21)
[2019-02-22] MEDS ORDERED: Ondansetron 4 MG/2 ML SDV ONE (08:21)
[2019-02-22] MEDS ORDERED: fentaNYL 250 MCG/5 ML SDV ONE ×2 (08:23→10:00)
[2019-02-22] MEDS ORDERED: Meropenem 500 MG SDV ONE (09:20)
[2019-02-22] MEDS ORDERED: Bupivacaine 0.5%/EPINEPHrine 1:200,000 50 ML MDV ONE (09:20)
[2019-02-22] MEDS ORDERED: Ketamine 500 MG/5 ML MDV IV SCH (09:30)
[2019-02-22] MEDS ORDERED: Ketamine 50 MG in Sodium Chloride 0.9% 49.5 ML IV SCH (09:30)
[2019-02-22] MEDS ORDERED: ceFAZolin 2 GM in Sodium Chloride 0.9% 50 ML IV ONE (09:30)
[2019-02-22] MEDS ORDERED: Ketorolac 60 MG/2 ML SDV ONE (10:00)
[2019-02-22] MEDS ORDERED: hydrOXYzine HCL 100 MG/2 ML SDV IM PRN (12:47)
[2019-02-22] MEDS ORDERED: Albuterol/Ipratropium 3.0-0.5 MG/3 ML Neb Soln INH PRN (12:47)
[2019-02-22] MEDS ORDERED: HYDROmorphone 0.5 MG/0.5 ML Syringe IVPUSH PRN (12:47)
[2019-02-22] MEDS: HYDROmorphone 1 MG/ML Syringe IV PRN ×3 (13:06→23:18)
[2019-02-22] MEDS: Acetaminophen 500 MG Tab PO SCH ×2 (14:00→20:04)
[2019-02-22] MEDS: Albuterol/Ipratropium 3.0-0.5 MG/3 ML Neb Soln INH SCH ×2 (14:53→21:53)
[2019-02-22] MEDS: Ibuprofen 600 MG Tab PO SCH ×2 (15:23→21:54)
[2019-02-22] MEDS: ceFAZolin 2 GM in Premix Bag 1 BAG IV SCH ×2 (15:23→23:22)
[2019-02-22] MEDS: Dextrose 5%-Lactated Ringers 1,000 ML IV SCH ×2 (15:24→19:35)
[2019-02-22] MEDS ORDERED: Fluticasone-Salmeterol 232-14 MCG Powder Inhalent INH SCH (21:00)
[2019-02-22] MEDS: ADVAIR INH SCH (21:55)
[2019-02-23] MEDS: Acetaminophen 500 MG Tab PO SCH ×4 (02:32→19:35)
[2019-02-23] MEDS: Dextrose 5%-Lactated Ringers 1,000 ML IV SCH ×3 (02:37→19:35)
[2019-02-23] MEDS: Ibuprofen 600 MG Tab PO SCH ×4 (04:12→21:54)
[2019-02-23] MEDS: HYDROmorphone 1 MG/ML Syringe IV PRN (04:15)
[2019-02-23] MEDS: Albuterol/Ipratropium 3.0-0.5 MG/3 ML Neb Soln INH SCH ×4 (07:11→21:54)
[2019-02-23] MEDS: ADVAIR INH SCH ×2 (08:51→21:54)
[2019-02-23] MEDS: ceFAZolin 2 GM in Premix Bag 1 BAG IV SCH (08:52)
[2019-02-23] MEDS: buPROPion 150 MG Tab.ER PO SCH (09:02)
[2019-02-23] MEDS: Docusate Sodium 100 MG Cap PO SCH ×2 (09:03→21:54)
[2019-02-23] MEDS: Bisacodyl 5 MG Tab PO SCH ×2 (09:03→21:53)
--- NOTE | 2019-02-23 11:29 | PN ---
DATE OF SERVICE: 02/23/2019 SUBJECTIVE: Jazmyn is postoperative day #1. Vital signs have been stable. Her pain has been well managed. She has been up ambulating. REVIEW OF SYSTEMS: Remainder of review of systems negative for any pertinent positives and negatives. OBJECTIVE: GENERAL: Jazmyn is a 23-year-old female. She is quite sleepy. VITAL SIGNS: TPR is 96.7, 109, 18, blood pressure is 96/48, O2 sat by pulse oximetry is 93%. HEENT: Negative. NECK: Supple. HEART: Regular rate and rhythm. LUNGS: Clear. ABDOMEN: Dressings dry and intact. Abdominal binder is on. EXTREMITIES: Without peripheral edema. ASSESSMENT: 1. Diagnostic laparoscopy with lysis of adhesions. a. Repair of recurrent incarcerated incisional hernia. b. Placement of Vicryl mesh for recurrent incarcerated incisional hernia and excision of intraabdominal adhesions. 2. Extensive intraabdominal adhesions. Date of surgery: 02/22/2019. PLAN: 1. Decrease IV to 100 mL per hour. 2. Regular diet. 3. Dressing off, may shower. 4. Dulcolax tablets 10 mg p.o. b.i.d. scheduled. 5. Colace 100 mg p.o. b.i.d. 6. Discontinue IV Dilaudid and Dilaudid 2 to 4 mg every 4 hours p.r.n. pain. 7. Discontinue cardiac monitoring and continuous pulse ox. 8. Good pulmonary toilet. 9. We will evaluate p.r.n. or in a.m. Niurka Underwood PA-C /[id number]
[2019-02-23] MEDS: HYDROmorphone 2 MG Tab PO PRN ×3 (13:18→22:10)
[2019-02-23] MEDS: Ondansetron 4 MG/2 ML SDV IVPUSH PRN (15:47)
[2019-02-24] MEDS: Ibuprofen 600 MG Tab PO SCH ×2 (03:00→09:16)
[2019-02-24] MEDS: Acetaminophen 500 MG Tab PO SCH ×3 (03:00→15:08)
[2019-02-24] MEDS: Dextrose 5%-Lactated Ringers 1,000 ML IV SCH (05:41)
[2019-02-24] MEDS: Albuterol/Ipratropium 3.0-0.5 MG/3 ML Neb Soln INH SCH ×2 (07:19→10:53)
[2019-02-24] MEDS: Ondansetron 4 MG/2 ML SDV IVPUSH PRN (07:58)
[2019-02-24] MEDS: ADVAIR INH SCH (08:05)
[2019-02-24] MEDS: buPROPion 150 MG Tab.ER PO SCH (09:16)
[2019-02-24] MEDS: Docusate Sodium 100 MG Cap PO SCH (09:16)
[2019-02-24] MEDS: Bisacodyl 5 MG Tab PO SCH (09:17)
[2019-02-24 09:24] VITALS: BP 125/62; PULSE 123
--- NOTE | 2019-02-24 11:44 | OR ---
DATE OF PROCEDURE: 02/22/2019 SURGEON: Huan Walker MD PREOPERATIVE DIAGNOSIS: Recurrent incisional hernia. POSTOPERATIVE DIAGNOSES: 1. Recurrent incarcerated incisional hernia. 2. Extensive intraabdominal adhesions. OPERATIVE PROCEDURE: Diagnostic laparoscopy with lysis of adhesions and: 1. Repair of incarcerated recurrent incisional hernia with mesh (18505). 2. Placement of Vicryl mesh underlying abdominal and pelvic wall to limit recurrent adhesion formation (20775). ANESTHESIA: General. SCHOOL PSYCHOMETRIST: Niurka Underwood PA-C. INDICATIONS FOR PROCEDURE: This is a 23-year-old female presenting with recurrence of the incisional hernia located in the epigastric area. Plan is to proceed with diagnostic laparoscopy, possible laparotomy and repair of the hernia with mesh. Potential risks including bleeding, infection, injury to underlying viscera, possible problems with mesh becoming infected or the hernia recurring once again were all reviewed, and the patient wishes to proceed. DETAILS OF PROCEDURE: The patient was taken to the operating room and placed in a supine position. After general endotracheal anesthesia was induced, a Khan catheter was inserted, and the abdomen was prepped and draped. In the left lateral abdomen, a transverse incision was made and peritoneal cavity entered under direct vision with an Optiview trocar. Eventually, 5 additional trocars were placed across the mid and upper abdomen. The patient was noted to have quite extensive adhesions between the previous mesh repair, and these were taken down with Harmonic scalpel. At that point, bilateral transversus abdominis plane blocks were placed. The patient was noted to have a defect with essentially the mesh prolapsing into the hernia defect in the mid epigastric area. At that point, a 20.[address] mesh was placed in antibiotic-containing saline solution and placed in intraperitoneal location. This was then pulled up through the center of the hernia after a small stab wound was made in the skin overlying that, with the balloon catheter then used to inflate the mesh and pushing it up against the abdominal wall. At that point, we turned the pressure down from the 20 cm of water to 8 cm of water so as to get a somewhat tighter application of the mesh, and at that point, circumferential tacking screws were placed. Absorbable tacking screws were used in the upper aspect where there was not any pre-existing mesh. Where it overlapped the previous mesh, some permanent titanium screws were used, as these were required in order to get satisfactorily through both layers of the mesh and affix it. Once this was completed, the balloon was deflated and withdrawn, we had good coverage of the hernia, and no further problems were noted. Vicryl mesh was then placed underneath the current mesh, as well as down to the pelvic and abdominal wall to try to limit recurrent adhesion formation between those structures and the underlying viscera. At that point, no further problems were noted. The 12 mm trocar sites were closed with 0 Vicryl stitch and the skin at each incision with 4- 0 Vicryl skin stitch. Dressing was applied. The patient was taken to the recovery room in satisfactory condition. Physician pharmacist assistant, Niurka Underwood, played an essential role in assisting in this case, helping to position the patient, retract structures, as needed as well as suturing and cutting sutures when indicated. Her presence improved patient safety and decreased operative time. Huan Walker MD /[id number]
--- NOTE | 2019-02-24 13:08 | DISCH ---
ADMISSION DIAGNOSES: 1. Recurrent incarcerated incisional hernia. 2. Gastroesophageal reflux disease. 3. Iron deficiency anemia. 4. Migraine headaches. 5. Depression. 6. Seizure disorder. 7. Psychogenic syncope. 8. Moderate persistent asthma. DISCHARGE DIAGNOSES: 1. Diagnostic laparoscopy with lysis of adhesions. 2. Repair of recurrent incarcerated incisional hernia. 3. Placement of Vicryl mesh for recurrent incarcerated incisional hernia and excision of intraabdominal adhesions. POSTOPERATIVE DIAGNOSES: 1. Recurrent incarcerated incisional hernia and intra-abdominal adhesions. 2. Date of surgery: 02/22/2019. Surgeon: Huan Walker MD. HISTORY: Jazmyn Mahan is a pleasant 23-year-old female with recurrent incarcerated incisional hernia. After preoperative evaluation and discussion of possible risks and possible complications, she wished to proceed with surgical procedure. HOSPITAL COURSE: Jazmyn had her surgery on 02/22/2019. She had no operative complications. On postoperative day #1, her IV was decreased. She was started on a regular diet. Dressing was off, she showered, started bowel stimulation, and oral pain medication. On postoperative day #2, she had a bowel movement. Her vital signs stable. Intake and output adequate. Activity was good. She received postop instructions and able to be discharged to home. PHYSICAL EXAMINATION: GENERAL: Jazmyn is a pleasant 23-year-old female. VITAL SIGNS: Height is 5 feet 2.99 inches, weight is 212 pounds. TPR is 96.9, 80, 18, blood pressure 90/52. HEENT: Negative. NECK: Supple. HEART: Regular rate and rhythm. LUNGS: Clear. ABDOMEN: Sutures intact. Incisions look good. Abdominal binder is on. EXTREMITIES: Without peripheral edema. DISPOSITION: Discharged to home. CONDITION: Stable and improving. FOLLOWUP: Followup appointment with Huan Walker MD, at [facility] on 03/03/2019 at 8:15 a.m. HOME MEDICATIONS: 1. Dilaudid 2 mg every 6 hours p.r.n. pain #28. 2. Tylenol 1000 mg every 6 hours p.r.n. pain. 3. Dulcolax 10 mg oral twice daily #30, to take scheduled and then discontinue when she has a bowel movement. 4. Proventil inhaler 2 puffs every 6 hours p.r.n. shortness of breath. 5. Advair 230/21 2 puffs inhalation every 12 hours. 6. Bupropion 150 mg daily. DISCHARGE INSTRUCTIONS: Diet after discharge: Usual diet as tolerated. Drink 8 to 10 glasses of water a day. Activity: No lifting over 10 pounds for 4 weeks. Driving: Do not drive while on pain medication. May shower. Notify provider if any fever, increased pain, nausea, or vomiting. Keep site clean and dry. Wound incision care. Wear abdominal binder with pressure dressing over hernia site for 2 weeks. Wear abdominal binder for 1 month after pressure dressing has been removed. Use incentive spirometer 10 times every hour while awake.
[2019-02-24] MEDS: HYDROmorphone 2 MG Tab PO PRN (15:07)
== END 2019-02-24 15:20 | disposition home or self-care (01) ==
LOC: UNDOADMIN 06:56 → JP.SDSSCHI 06:56 → JP.SDS 06:56 → EDSTATUS 09:15 → JP.2SS 11:15 → JP.SDSSCHI 11:15 → JP.SDS 02-23 11:33 → JP.MS 02-23 11:33 → UNDODISIN 02-24 15:20 → JP.SDSSCHI 02-24 15:38 → JP.SDS 02-24 15:38
PROVIDERS: ADMIT Surgery; ATTEND Surgery
DX: K43.0 Incisional hernia with obstruction, without gangrene (principal); K66.0 Peritoneal adhesions (postprocedural) (postinfection); K21.9 Gastro-esophageal reflux disease without esophagitis; D50.9 Iron deficiency anemia, unspecified; G43.909 Migraine, unspecified, not intractable, without status migrainosus; F32.9 Major depressive disorder, single episode, unspecified; F41.9 Anxiety disorder, unspecified; G40.909 Epilepsy, unspecified, not intractable, without status epilepticus; F48.8 Other specified nonpsychotic mental disorders; J45.40 Moderate persistent asthma, uncomplicated; E66.01 Morbid (severe) obesity due to excess calories; Z68.37 Body mass index [BMI] 37.0-37.9, adult; Z87.891 Personal history of nicotine dependence; Z79.51 Long term (current) use of inhaled steroids; Z79.899 Other long term (current) drug therapy; Z98.890 Other specified postprocedural states
CPT/HCPCS: 36415; 49657; 80053; 81025; 83735; 84100; 85027; 94640; A9270; C1713; C1781; G0378; J0171; J0330; J0690; J1100; J1170; J1885; J2020; J2185; J2405; J2704; J2710; J2795; J3010; J3490; J7050; J7121; J7620-GY

== ENCOUNTER 2019-03-01 22:33 | Emergency (ER) | payer MEDICAID ==
[2019-03-01 22:50] VITALS: BP 130/76; PULSE 96
[2019-03-01] MEDS ORDERED: Acetaminophen/HYDROcodone 325-5 MG Tab PO ONE (23:04)
--- NOTE | 2019-03-01 23:09 | EDM.PDOC ---
ED HPI GENERAL MEDICAL PROBLEM - General Chief Complaint: General Stated Complaint: RIB PAIN Time Seen by Provider: 03/01/19 22:56 Source of Information: Reports: Patient, Family, RN Notes Reviewed History Limitations: Reports: No Limitations - History of Present Illness INITIAL COMMENTS - FREE TEXT/NARRATIVE: 23-year-old female presents emergency department with a complaint of swelling on the left side of her abdomen she is postop day 7 umbilical hernia repair. She is using Dilaudid for pain control she feels it does not provide good pain relief for her she would like to try something else. LUQ/ rib Pain Score (Numeric/FACES): 5 - Related Data Allergies Allergy/AdvReac Type Severity Reaction Status Date / Time No Known Allergies Allergy Verified 03/01/19 22:45 Home Meds: Home Meds Albuterol Sulfate [Proventil Hfa] 2 puff IH Q6HR PRN 07/06/15 [History] buPROPion [buPROPion XL] 150 mg PO DAILY 06/13/18 [History] Fluticasone/Salmeterol [Advair Hfa 230-21 Mcg Inhaler] 2 puff INH Q12H 02/22/19 [History] Acetaminophen [Tylenol Extra Strength] 1,000 mg PO Q6H tablet 02/24/19 [Rx] HYDROmorphone [Dilaudid] 2 mg PO Q6HR PRN #28 tablet 02/24/19 [Rx] bisacodyL [Dulcolax] 10 mg PO BID #30 tablet 02/24/19 [Rx] ondansetron HCL [Ondansetron HCl] 1 tab PO Q8H PRN 03/01/19 [History] Past Medical History HEENT History: Reports: Impaired Vision, Other (See Below) Other HEENT History: vision corrected with glasses, infected cracked tooth Cardiovascular History: Reports: Arrhythmia, Other (See Below) Other Cardiovascular History: heart palpitations Respiratory History: Reports: Asthma Other Respiratory History: uses inhaler Gastrointestinal History: Reports: GERD Other Gastrointestinal History: mom has crohns; Umbilical hernia Genitourinary History: Reports: UTI, Recurrent CIV[employer] DES[employer] SPECIALIST History: Reports: , Spontaneous 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 DESIGN 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 History: 1st child born at 37+ weeks Musculoskeletal History: Reports: Other (See Below) Other Musculoskeletal History: knee pain Neurological History: Reports: Concussion, Migraines, Seizure Psychiatric History: Reports: ADD, ADHD, Anxiety, Bipolar, Depression Other Psychiatric History: no medication; "know how to control it" Endocrine/Metabolic History: Reports: Obesity/BMI 30+ Hematologic History: Reports: Anemia Other Hematologic History: recent and D&C september 22, 2014 Dermatologic History: Reports: Cellulitis Other Dermatologic History: history of cellulitis to right foot - Infectious Disease History Infectious Disease History: Reports: Chicken Pox Other Infectious Disease History: unknown - Past Surgical History HEENT Surgical History: Reports: None Cardiovascular Surgical History: Reports: None Respiratory Surgical History: Reports: None GI Surgical History: Reports: Hernia Repair/Other Female Surgical History: Reports: Tubal Ligation Endocrine Surgical History: Reports: None Musculoskeletal Surgical History: Reports: None Dermatological Surgical History: Reports: None Social & Family History - Family History Family Medical History: Noncontributory Neurological: Reports: Seizure - Tobacco Use Smoking Status *Q: Current Every Day Smoker Years of Tobacco use: 10 Packs/Tins Daily: 1 Tobacco Use Comment: states she quit 3 weeks ago - Caffeine Use Caffeine Use: Reports: Coffee, Energy Drinks, Soda, Tea - Recreational Drug Use Recreational Drug Use: No - Living Situation & Occupation Living situation: Reports: , with Family ED ROS GENERAL - Review of Systems Review Of Systems: See Below Constitutional: Reports: No Symptoms Respiratory: Reports: No Symptoms Cardiovascular: Reports: No Symptoms GI/Abdominal: Reports: Abdominal Pain. Denies: Nausea, Vomiting ED EXAM, GENERAL - Physical Exam Exam: See Below Exam Limited By: No Limitations General Appearance: Alert, WD/WN, No Apparent Distress Respiratory/Chest: No Respiratory Distress, Lungs Clear, Normal Breath Sounds, No Accessory Muscle Use, Chest Non-Tender Cardiovascular: Regular Rate, Rhythm, No Murmur GI/Abdominal: Soft, Non-Tender Course - Vital Signs Last Recorded V/S: Last Vital Signs Temp 98.4 F 03/01/19 22:49 Pulse 96 03/01/19 22:49 Resp 14 03/01/19 22:49 BP 130/76 03/01/19 22:49 Pulse Ox 96 03/01/19 22:49 - Orders/Labs/Meds Orders: Active Orders 24 hr Category Date Time Status Acetaminophen/HYDROcodone [[place] 325-5 MG] Med 03/01/19 23:04 Once 1 tab PO ONETIME ONE Departure - Departure Time of Disposition: 23:08 Disposition: Home, Self-Care 01 Condition: Fair Clinical Impression: Postoperative pain - Discharge Information Referrals: Mimi Mistry CNM [Primary Care Provider] - Additional Instructions: Use hydrocodone as needed for pain control stop your Dilaudid keep your follow- up appointment with general surgery on Friday of this week call or return to the emergency department with worsening of symptoms Sepsis Event Note - Evaluation Sepsis Screening Result: No Definite Risk - Focused Exam Vital Signs: Vital Signs Temp Pulse Resp BP Pulse Ox 03/01/19 22:49 98.4 F 96 14 130/76 96 Date Exam was Performed: 03/01/19 Time Exam was Performed: 23:05 - My Orders Last 24 Hours: My Active Orders 03/01/19 23:04 Acetaminophen/HYDROcodone [[place] 325-5 MG] 1 tab PO ONETIME ONE - Assessment/Plan Last 24 Hours: My Active Orders 03/01/19 23:04 Acetaminophen/HYDROcodone [[place] 325-5 MG] 1 tab PO ONETIME ONE Plan: Assessment Acuity = acute Site and laterality = postsurgical pain Etiology = abdominal surgery Manifestations = none Location of injury = Home Lab values = none Plan She is provided hydrocodone 5/325 1 tablet p.o. 3 times daily as needed prescription given 1 tablet in the ED she has a follow-up appointment with her general surgeon on Friday of this week This note was dictated using makerist voice recognition software please call with any questions on syntax or grammar.
== END 2019-03-01 23:31 | disposition home or self-care (01) ==
LOC: JP.ED 22:33
DX: G89.18 Other acute postprocedural pain (principal); R10.12 Left upper quadrant pain; J45.909 Unspecified asthma, uncomplicated; F41.9 Anxiety disorder, unspecified; F32.9 Major depressive disorder, single episode, unspecified; E66.9 Obesity, unspecified; Z68.36 Body mass index [BMI] 36.0-36.9, adult; F17.210 Nicotine dependence, cigarettes, uncomplicated; Z79.899 Other long term (current) drug therapy
CPT/HCPCS: 99283; A9270-GY

== ENCOUNTER 2019-03-22 18:32 | Emergency (ER) | payer MEDICAID ==
--- NOTE | 2019-03-22 20:02 | EDM.PDOC ---
ED HPI GENERAL MEDICAL PROBLEM - General Chief Complaint: Respiratory Problem Stated Complaint: COUGH,SORE THROAT,RUNNING NOSE Time Seen by Provider: 03/22/19 19:50 Source of Information: Reports: Patient, Old Records History Limitations: Reports: No Limitations - History of Present Illness INITIAL COMMENTS - FREE TEXT/NARRATIVE: 23 yo female here with runny nose and cough. Was given Tamiflu in the clinic for this. Not getting better. Nasal discharge is clear. No fever. Not SOB. Quit smoking about 2 mos ago. Has some facial pressure. Onset: Gradual Duration: Day(s):, Constant Location: Reports: Face, Chest Quality: Reports: Pressure (sinuses) Severity: Mild Improves with: Reports: None Worsens with: Reports: Other (unsure) Context: Reports: Other (see HPI) Associated Symptoms: Reports: Cough, Headaches. Denies: Fever/Chills, Nausea/ Vomiting, Rash, Shortness of Breath, Syncope Treatments CLEANING MATRON: Reports: Other (see below) (Tamiflu) Chest Pain Score (Numeric/FACES): 6 - Related Data Allergies Allergy/AdvReac Type Severity Reaction Status Date / Time No Known Allergies Allergy Verified 03/22/19 19:25 Home Meds: Home Meds Albuterol Sulfate [Proventil Hfa] 2 puff IH Q6HR PRN 07/06/15 [History] buPROPion [buPROPion XL] 150 mg PO DAILY 06/13/18 [History] Fluticasone/Salmeterol [Advair Hfa 230-21 Mcg Inhaler] 2 puff INH Q12H 02/22/19 [History] Acetaminophen [Tylenol Extra Strength] 1,000 mg PO Q6H tablet 02/24/19 [Rx] ondansetron HCL [Ondansetron HCl] 1 tab PO Q8H PRN 03/01/19 [History] Past Medical History HEENT History: Reports: Impaired Vision, Other (See Below) Other HEENT History: vision corrected with glasses, infected cracked tooth Cardiovascular History: Reports: Arrhythmia, Other (See Below) Other Cardiovascular History: heart palpitations Respiratory History: Reports: Asthma Other Respiratory History: uses inhaler Gastrointestinal History: Reports: GERD Other Gastrointestinal History: mom has crohns; Umbilical hernia Genitourinary History: Reports: UTI, Recurrent [employer]SET MAKER History: Reports: , Spontaneous Other CORSET [employer]ER History: 1st child born at 37+ weeks Musculoskeletal History: Reports: Other (See Below) Other Musculoskeletal History: knee pain Neurological History: Reports: Concussion, Migraines, Seizure Psychiatric History: Reports: ADD, ADHD, Anxiety, Bipolar, Depression Other Psychiatric History: no medication; "know how to control it" Endocrine/Metabolic History: Reports: Obesity/BMI 30+ Hematologic History: Reports: Anemia Other Hematologic History: recent and D&C september 22, 2014 Dermatologic History: Reports: Cellulitis Other Dermatologic History: history of cellulitis to right foot - Infectious Disease History Infectious Disease History: Reports: Chicken Pox Other Infectious Disease History: unknown - Past Surgical History HEENT Surgical History: Reports: None Cardiovascular Surgical History: Reports: None Respiratory Surgical History: Reports: None GI Surgical History: Reports: Hernia Repair/Other Female Surgical History: Reports: Tubal Ligation Endocrine Surgical History: Reports: None Musculoskeletal Surgical History: Reports: None Dermatological Surgical History: Reports: None Social & Family History - Family History Family Medical History: Noncontributory Neurological: Reports: Seizure - Tobacco Use Smoking Status *Q: Former Smoker Used Tobacco, but Quit: Yes Month/Year Tobacco Last Used: 02/2019 - Caffeine Use Caffeine Use: Reports: Coffee, Energy Drinks, Soda - Recreational Drug Use Recreational Drug Use: No - Living Situation & Occupation Living situation: Reports: , with Family ED ROS GENERAL - Review of Systems Review Of Systems: See Below Constitutional: Reports: No Symptoms HEENT: Reports: Rhinitis, Sinus Problem (pressure), Throat Pain (mild). Denies : Ear Discharge, Ear Pain, Throat Swelling Respiratory: Reports: Cough. Denies: Shortness of Breath, Wheezing, Pleuritic Chest Pain, Sputum, Hemoptysis Cardiovascular: Reports: No Symptoms Skin: Reports: No Symptoms Neurological: Reports: No Symptoms ED EXAM, GENERAL - Physical Exam Exam: See Below Exam Limited By: No Limitations General Appearance: Alert, WD/WN, No Apparent Distress, Obese Eye Exam: Bilateral Eye: Normal Inspection Ears: Normal External Exam, Normal Canal, Hearing Grossly Normal, Normal TMs Ear Exam: Bilateral Ear: Auricle Normal, Canal Normal, TM normal Nose: Normal Inspection, No Blood, Clear Rhinorrhea Throat/Mouth: Normal Inspection, Normal Lips, Normal Oropharynx, Normal Voice, No Airway Compromise Head: Atraumatic, Normocephalic Neck: Normal Inspection Respiratory/Chest: No Respiratory Distress, Lungs Clear, Normal Breath Sounds, No Accessory Muscle Use Cardiovascular: Regular Rate, Rhythm, No Edema Extremities: Normal Inspection Neurological: Alert, Oriented, CN II-XII Intact, Normal Cognition, No Motor/ Sensory Deficits Psychiatric: Normal Affect, Normal Mood Skin Exam: Warm, Dry, Intact, Normal Color, No Rash Departure - Departure Time of Disposition: 20:10 Disposition: Home, Self-Care 01 Condition: Good Clinical Impression: Viral URI with cough - Discharge Information *PRESCRIPTION DRUG MONITORING PROGRAM REVIEWED*: No *COPY OF PRESCRIPTION DRUG MONITORING REPORT IN PATIENT WHITNEY: No Instructions: Upper Respiratory Infection, Adult, [id number] Referrals: Mimi Mistry CNM [Primary Care Provider] - Additional Instructions: Use Afrin per package instructions for up to 3 days for congestion and sinus pressure. Use Delsym for cough. Take acetaminophen as needed for pain control. Recheck if worse or not improving.
[2019-03-22 20:03] VITALS: BP 147/68; PULSE 92
== END 2019-03-22 20:19 | disposition home or self-care (01) ==
LOC: JP.ED 18:32
DX: J06.9 Acute upper respiratory infection, unspecified (principal); K21.9 Gastro-esophageal reflux disease without esophagitis; J45.909 Unspecified asthma, uncomplicated; F31.9 Bipolar disorder, unspecified; F41.9 Anxiety disorder, unspecified; Z79.899 Other long term (current) drug therapy; Z87.891 Personal history of nicotine dependence
CPT/HCPCS: 87804; 87804-59; 99282; 99283

== ENCOUNTER 2019-04-04 12:49 | Emergency (ER) | payer MEDICAID ==
[2019-04-04 13:04] VITALS: BP 137/84; PULSE 124
--- NOTE | 2019-04-04 13:20 | EDM.PDOC ---
ED HPI GENERAL MEDICAL PROBLEM - General Chief Complaint: ENT Problem Stated Complaint: SORE THROAT Time Seen by Provider: 04/04/19 13:19 Source of Information: Reports: Patient History Limitations: Reports: No Limitations - History of Present Illness INITIAL COMMENTS - FREE TEXT/NARRATIVE: pt arrived with a sore throat and swollen glands. She states she has been having trouble eating for the past 24 hours. Onset: Other ( started yesterday. She had a temp of 102 yesterday. ) Duration: Hour(s): Location: Reports: Neck, Generalized Associated Symptoms: Reports: Headaches Throat Pain Score (Numeric/FACES): 9 - Related Data Allergies Allergy/AdvReac Type Severity Reaction Status Date / Time No Known Allergies Allergy Verified 04/04/19 13:04 Home Meds: Home Meds Albuterol Sulfate [Proventil Hfa] 2 puff IH Q6HR PRN 07/06/15 [History] buPROPion [buPROPion XL] 150 mg PO DAILY 06/13/18 [History] Fluticasone/Salmeterol [Advair Hfa 230-21 Mcg Inhaler] 2 puff INH Q12H 02/22/19 [History] Acetaminophen [Tylenol Extra Strength] 1,000 mg PO Q6H tablet 02/24/19 [Rx] ondansetron HCL [Ondansetron HCl] 1 tab PO Q8H PRN 03/01/19 [History] Past Medical History HEENT History: Reports: Impaired Vision, Other (See Below) Other HEENT History: vision corrected with glasses, infected cracked tooth Cardiovascular History: Reports: Arrhythmia, Other (See Below) Other Cardiovascular History: heart palpitations Respiratory History: Reports: Asthma Other Respiratory History: uses inhaler Gastrointestinal History: Reports: GERD Other Gastrointestinal History: Umbilical hernia Genitourinary History: Reports: UTI, Recurrent 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 REDRIER History: Reports: , Spontaneous Other VENEER REDRIER History: 1st child born at 37+ weeks Musculoskeletal History: Reports: Other (See Below) Other Musculoskeletal History: knee pain Neurological History: Reports: Concussion, Migraines, Seizure Psychiatric History: Reports: ADD, ADHD, Anxiety, Bipolar, Depression Other Psychiatric History: no medication; "know how to control it" Endocrine/Metabolic History: Reports: Obesity/BMI 30+ Hematologic History: Reports: Anemia Other Hematologic History: recent and D&C september 22, 2014 Dermatologic History: Reports: Cellulitis Other Dermatologic History: history of cellulitis to right foot - Infectious Disease History Infectious Disease History: Reports: Chicken Pox Other Infectious Disease History: unknown - Past Surgical History GI Surgical History: Reports: Hernia Repair/Other Female Surgical History: Reports: Tubal Ligation Social & Family History - Family History Family Medical History: Noncontributory Neurological: Reports: Seizure - Tobacco Use Smoking Status *Q: Never Smoker - Caffeine Use Caffeine Use: Reports: Coffee, Energy Drinks, Soda - Recreational Drug Use Recreational Drug Use: No - Living Situation & Occupation Living situation: Reports: , with Family ED ROS ENT - Review of Systems Review Of Systems: See Below Constitutional: Reports: Fever, Chills, Malaise HEENT: Reports: Throat Pain, Throat Swelling Respiratory: Reports: No Symptoms Cardiovascular: Reports: No Symptoms Endocrine: Reports: No Symptoms GI/Abdominal: Reports: No Symptoms : Reports: No Symptoms Musculoskeletal: Reports: No Symptoms Skin: Reports: No Symptoms ED EXAM, ENT - Physical Exam Exam: See Below Text/Narrative:: pt arrived with a sore throat. She is having a difficult time eating. She had a fever of 102 yesterday. Exam Limited By: No Limitations General Appearance: Alert, Mild Distress Ears: Normal TMs Nose: Normal Inspection Mouth/Throat: Other ( throat is red and inflamed. ) Head: Atraumatic Neck: Lymphadenopathy (R), Lymphadenopathy (L) Respiratory/Chest: No Respiratory Distress Cardiovascular: Regular Rate, Rhythm GI/Abdominal: Non-Tender (Female) Exam: Deferred Course - Vital Signs Last Recorded V/S: Last Vital Signs Temp 36.2 C 04/04/19 13:06 Pulse 124 H 04/04/19 13:06 Resp 12 04/04/19 13:06 BP 137/84 04/04/19 13:06 Pulse Ox 96 04/04/19 13:06 - Orders/Labs/Meds Labs: Laboratory Tests 04/04/19 Range/Units 13:18 WBC 16.2 H (4.5-11.0) K/uL RBC 4.80 (3.30-5.50) M/uL Hgb 13.4 (12.0-15.0) g/dL Hct 42.1 (36.0-48.0) % MCV 88 (80-98) fL MCH 28 (27-31) pg MCHC 32 (32-36) % Plt Count 359 (150-400) K/uL Neut % (Auto) 74 H (36-66) % Lymph % (Auto) 14 L (24-44) % [place] % (Auto) 11 H (2-6) % Eos % (Auto) 0 L (2-4) % Baso % (Auto) 0 (0-1) % - Re-Assessments/Exams Free Text/Narrative Re-Assessment/Exam: 04/04/19 14:28 influ was neg, strept was positive. Departure - Departure Time of Disposition: 14:21 Disposition: Home, Self-Care 01 Condition: Fair Clinical Impression: Strep pharyngitis - Discharge Information Instructions: Strep Throat, [id number] Referrals: Mimi Mistry CNM [Primary Care Provider] - Forms: ED Department Discharge Care Plan Goals: push fluids, tylenol and motrin for fever and body aches, amoxicillin 500mg tid for 10 days. Sepsis Event Note - Evaluation Sepsis Screening Result: No Definite Risk - Focused Exam Date Exam was Performed: 04/06/19 Time Exam was Performed: 10:41
== END 2019-04-04 14:29 | disposition home or self-care (01) ==
LOC: JP.ED 12:49
DX: J02.0 Streptococcal pharyngitis (principal); Z79.899 Other long term (current) drug therapy
CPT/HCPCS: 36415; 85025; 87804; 87804-59; 87880-QW; 99283

== ENCOUNTER 2019-04-13 11:21 | Emergency (ER) | payer MEDICAID ==
--- NOTE | 2019-04-13 11:51 | EDM.PDOC ---
ED HPI GENERAL MEDICAL PROBLEM - General Chief Complaint: Abdominal Pain Stated Complaint: ABDOMINAL PAIN Time Seen by Provider: 04/13/19 11:45 Source of Information: Reports: Patient History Limitations: Reports: Other (bipolar) - History of Present Illness Onset: Other (Review of chart shows a history of abdominal complaints(UTI and GERD)) Onset Date: 04/11/19 Duration: Intermittent Location: Reports: Abdomen Quality: Reports: Stabbing Improves with: Reports: None Associated Symptoms: Denies: Chest Pain, Fever/Chills, Nausea/Vomiting, Shortness of Breath Abdomen Pain Score (Numeric/FACES): 5 - Related Data Allergies Allergy/AdvReac Type Severity Reaction Status Date / Time No Known Allergies Allergy Verified 04/13/19 11:45 Home Meds: Home Meds Albuterol Sulfate [Proventil Hfa] 2 puff IH Q6HR PRN 07/06/15 [History] buPROPion [buPROPion XL] 150 mg PO DAILY 06/13/18 [History] Fluticasone/Salmeterol [Advair Hfa 230-21 Mcg Inhaler] 2 puff INH Q12H PRN 02/22 [History] Acetaminophen [Tylenol Extra Strength] 1,000 mg PO Q6H tablet 02/24/19 [Rx] ondansetron HCL [Ondansetron HCl] 1 tab PO Q8H PRN 03/01/19 [History] Past Medical History HEENT History: Reports: Impaired Vision, Other (See Below) Other HEENT History: vision corrected with glasses, infected cracked tooth Cardiovascular History: Reports: Arrhythmia, Other (See Below) Other Cardiovascular History: heart palpitations Respiratory History: Reports: Asthma Other Respiratory History: uses inhaler Gastrointestinal History: Reports: GERD Other Gastrointestinal History: Umbilical hernia Genitourinary History: Reports: UTI, Recurrent 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: , Spontaneous 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 DETECTIVE AND 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 ANALYST History: 1st child born at 37+ weeks Musculoskeletal History: Reports: Other (See Below) Other Musculoskeletal History: knee pain Neurological History: Reports: Concussion, Migraines, Seizure Psychiatric History: Reports: ADD, ADHD, Anxiety, Bipolar, Depression Other Psychiatric History: no medication; "know how to control it" Endocrine/Metabolic History: Reports: Obesity/BMI 30+ Hematologic History: Reports: Anemia Other Hematologic History: recent and D&C september 22, 2014 Dermatologic History: Reports: Cellulitis Other Dermatologic History: history of cellulitis to right foot - Infectious Disease History Infectious Disease History: Reports: Influenza Other Infectious Disease History: unknown - Past Surgical History GI Surgical History: Reports: Hernia Repair/Other Female Surgical History: Reports: Tubal Ligation Social & Family History - Family History Family Medical History: Noncontributory Neurological: Reports: Seizure - Tobacco Use Smoking Status *Q: Never Smoker - Caffeine Use Caffeine Use: Reports: Coffee, Energy Drinks, Soda - Recreational Drug Use Recreational Drug Use: No - Living Situation & Occupation Living situation: Reports: , with Family ED ROS GENERAL - Review of Systems Review Of Systems: Comprehensive ROS is negative, except as noted in HPI. Constitutional: Denies: Fever, Weakness HEENT: Denies: Ear Pain Respiratory: Reports: Cough (Been going on for weeeks, "I always have it"). Denies: Shortness of Breath Cardiovascular: Denies: Chest Pain, Lightheadedness GI/Abdominal: Reports: Abdominal Pain, Other (Nml BM last evening). Denies: Constipation, Diarrhea : Denies: Dysuria Musculoskeletal: Reports: No Symptoms Skin: Reports: No Symptoms Psychiatric: Reports: Other (Pt is smiling and laughing when I enter room. There is a definite disconect between pt's alleged symptoms and her affect.) ED EXAM, GI/ABD - Physical Exam Exam: See Below Exam Limited By: No Limitations General Appearance: Alert, No Apparent Distress Eyes: Bilateral: Normal Appearance Ears: Normal External Exam, Normal Canal, Normal TMs Nose: Normal Inspection. No: Nasal Drainage Throat/Mouth: Normal Inspection, Other (no evidence dehydration) Head: Atraumatic Respiratory/Chest: No Respiratory Distress, Lungs Clear, Normal Breath Sounds Cardiovascular: Regular Rate, Rhythm GI/Abdominal Exam: Normal Bowel Sounds, Soft, Other (Obese). No: Guarding, Rigid, Rebound Back Exam: Full Range of Motion Extremities: Normal Inspection, Normal Range of Motion Neurological: Alert, Oriented Skin Exam: Normal Color, No Rash Course - Vital Signs Last Recorded V/S: Last Vital Signs Temp 36.4 C 04/13/19 11:40 Pulse 78 04/13/19 11:40 Resp 16 04/13/19 11:40 BP 107/70 04/13/19 11:40 Pulse Ox 97 04/13/19 11:40 - Orders/Labs/Meds Labs: Laboratory Tests 04/13/19 04/13/19 Range/Units 12:05 12:05 Urine Color Yellow (YELLOW) Urine Appearance Clear (CLEAR) Urine pH 6.0 (5.0-8.0) Ur Specific [place] 1.020 (1.008-1.030) Urine Protein Negative (NEGATIVE) mg/dL Urine Glucose (UA) Negative (NEGATIVE) mg/dL Urine Ketones Negative (NEGATIVE) mg/dL Urine Occult Blood Trace-intact H (NEGATIVE) Urine Nitrite Negative (NEGATIVE) Urine Bilirubin Negative (NEGATIVE) Urine Urobilinogen 0.2 (0.2-1.0) EU/dL Ur Leukocyte Esterase Small H (NEGATIVE) Urine RBC 0-5 (0-5) Urine WBC 5-10 H (0-5) Ur Epithelial Cells Many Urine Bacteria Few Urine Mucus Not seen Urine HCG, Qual Negative Departure - Departure Time of Disposition: 12:58 Disposition: Home, Self-Care 01 Clinical Impression: Urinary tract infection - Discharge Information Instructions: Urinary Tract Infection, Adult, [id number] Referrals: Mimi Mistry CNM [Primary Care Provider] - Forms: ED Department Discharge Additional Instructions: Drink plenty of fluids. Septra DS tab to take one orally 2x/day for 5 days Sepsis Event Note - Evaluation Sepsis Screening Result: No Definite Risk - Focused Exam Vital Signs: Vital Signs Temp Pulse Resp BP Pulse Ox 04/13/19 11:40 36.4 C 78 16 107/70 97 Date Exam was Performed: 04/13/19 Time Exam was Performed: 12:56
[2019-04-13 12:21] VITALS: BP 107/70; PULSE 78
== END 2019-04-13 13:05 | disposition home or self-care (01) ==
LOC: JP.ED 11:21
DX: N39.0 Urinary tract infection, site not specified (principal); Z79.899 Other long term (current) drug therapy
CPT/HCPCS: 81001; 81025; 99284

== ENCOUNTER 2019-05-04 17:04 | Emergency (ER) | payer MEDICAID ==
--- NOTE | 2019-05-04 17:46 | EDM.PDOC ---
ED HPI GENERAL MEDICAL PROBLEM - General Chief Complaint: General Stated Complaint: SEIZURE Time Seen by Provider: 05/04/19 17:32 Source of Information: Reports: Patient, Family, RN Notes Reviewed History Limitations: Reports: No Limitations - History of Present Illness INITIAL COMMENTS - FREE TEXT/NARRATIVE: 23-year-old female presents emergency department a complaint of seizure, she has had seizure-like activity for the last several months does have an appointment with neurology at the end of the month. Recently had MRI of the brain done 3 months ago which was negative. She describes seizure-like activity occurred while she was talking on the phone was witnessed by family member she was lying down on the bed had lower extremity movement became unresponsive while talking on the phone was incontinent of urine however after the event she never dropped the phone was able to continue communicating after the event on the phone. She states she had seizure-like activity last week as well Headache Pain Score (Numeric/FACES): 7 - Related Data Allergies Allergy/AdvReac Type Severity Reaction Status Date / Time No Known Allergies Allergy Verified 05/04/19 17:26 Home Meds: Home Meds Albuterol Sulfate [Proventil Hfa] 2 puff IH Q6HR PRN 07/06/15 [History] buPROPion [buPROPion XL] 150 mg PO DAILY 06/13/18 [History] Fluticasone/Salmeterol [Advair Hfa 230-21 Mcg Inhaler] 2 puff INH Q12H PRN 02/22 [History] Acetaminophen [Tylenol Extra Strength] 1,000 mg PO Q6H tablet 02/24/19 [Rx] ondansetron HCL [Ondansetron HCl] 1 tab PO Q8H PRN 03/01/19 [History] SUMAtriptan Succinate [Imitrex] 25 mg PO ASDIRECTED #6 tablet 05/04/19 [Rx] Past Medical History HEENT History: Reports: Impaired Vision, Other (See Below) Other HEENT History: vision corrected with glasses, infected cracked tooth Cardiovascular History: Reports: Arrhythmia, Other (See Below) Other Cardiovascular History: heart palpitations Respiratory History: Reports: Asthma Other Respiratory History: uses inhaler Gastrointestinal History: Reports: GERD Other Gastrointestinal History: Umbilical hernia Genitourinary History: Reports: UTI, Recurrent 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: , 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 Other PUMP INSTALLER History: 1st child born at 37+ weeks Musculoskeletal History: Reports: Other (See Below) Other Musculoskeletal History: knee pain Neurological History: Reports: Concussion, Migraines, Seizure Psychiatric History: Reports: ADD, ADHD, Anxiety, Bipolar, Depression Other Psychiatric History: no medication; "know how to control it" Endocrine/Metabolic History: Reports: Obesity/BMI 30+ Hematologic History: Reports: Anemia Other Hematologic History: recent and D&C september 22, 2014 Dermatologic History: Reports: Cellulitis Other Dermatologic History: history of cellulitis to right foot - Infectious Disease History Infectious Disease History: Reports: Influenza Other Infectious Disease History: unknown - Past Surgical History GI Surgical History: Reports: Hernia Repair/Other Female Surgical History: Reports: Tubal Ligation Social & Family History - Family History Family Medical History: Noncontributory Neurological: Reports: Seizure - Tobacco Use Smoking Status *Q: Never Smoker - Caffeine Use Caffeine Use: Reports: Coffee, Energy Drinks, Soda - Recreational Drug Use Recreational Drug Use: No - Living Situation & Occupation Living situation: Reports: , with Family ED ROS GENERAL - Review of Systems Review Of Systems: See Below Constitutional: Reports: No Symptoms HEENT: Reports: No Symptoms Respiratory: Reports: No Symptoms Cardiovascular: Reports: No Symptoms GI/Abdominal: Reports: No Symptoms : Reports: Incontinence Musculoskeletal: Reports: No Symptoms Skin: Reports: No Symptoms Neurological: Reports: Seizure (Seizure-like activity) ED EXAM, GENERAL - Physical Exam Exam: See Below Exam Limited By: No Limitations General Appearance: Alert, WD/WN, No Apparent Distress Eye Exam: Bilateral Eye: EOMI, Normal Inspection, PERRL Respiratory/Chest: No Respiratory Distress Course - Vital Signs Last Recorded V/S: Last Vital Signs Temp 96.4 F L 05/04/19 17:20 Pulse 100 05/04/19 17:20 Resp 16 05/04/19 17:20 BP 139/88 05/04/19 17:20 Pulse Ox 96 05/04/19 17:20 Departure - Departure Time of Disposition: 17:46 Disposition: Home, Self-Care 01 Condition: Fair Clinical Impression: Seizure-like activity - Discharge Information Prescriptions: SUMAtriptan Succinate [Imitrex] 25 mg PO ASDIRECTED #6 tablet Instructions: Non-Epileptic Seizures, Adult Referrals: Mimi Mistry CNM [Primary Care Provider] - Additional Instructions: Please keep your follow-up appointment with neurology, call return to the emergency department worsening of symptoms Sepsis Event Note - Evaluation Sepsis Screening Result: No Definite Risk - Focused Exam Vital Signs: Vital Signs Temp Pulse Resp BP Pulse Ox 05/04/19 17:20 96.4 F L 100 16 139/88 96 05/04/19 17:15 96.4 F L 100 16 139/88 96 Date Exam was Performed: 05/04/19 Time Exam was Performed: 17:43 - Assessment/Plan Plan: Assessment Acuity = acute Site and laterality = seizure-like activity Etiology = unknown Manifestations = none Location of injury = Home Lab values = none Plan Recommend continue with your regular medications keep her follow-up appointment with neurology for further evaluation and work-up This note was dictated using [employer] voice recognition software please call with any questions on syntax or grammar.
[2019-05-04 17:53] VITALS: BP 107/60; PULSE 95
== END 2019-05-04 17:57 | disposition home or self-care (01) ==
LOC: JP.ED 17:04
DX: R56.9 Unspecified convulsions (principal); J45.909 Unspecified asthma, uncomplicated; F41.9 Anxiety disorder, unspecified; F32.9 Major depressive disorder, single episode, unspecified; E66.9 Obesity, unspecified; Z68.37 Body mass index [BMI] 37.0-37.9, adult; Z79.899 Other long term (current) drug therapy
CPT/HCPCS: 99283

== ENCOUNTER 2019-05-09 14:29 | Emergency (ER) | payer MEDICAID ==
--- NOTE | 2019-05-09 15:04 | EDM.PDOC ---
ED HPI GENERAL MEDICAL PROBLEM - General Chief Complaint: General Stated Complaint: VLAD Time Seen by Provider: 05/09/19 14:30 Source of Information: Reports: Patient History Limitations: Reports: No Limitations - History of Present Illness INITIAL COMMENTS - FREE TEXT/NARRATIVE: 23-year-old female with chronic longstanding seizure-like activity that is recurring, she also has mild intermittent headaches and memory loss. It is been felt this may be psychogenic at times, but she has had some episodes where she was actually hurt when she fell. This morning she had another episode of unresponsiveness and flickering eyes and she said that her doctor told her to "always come in every time" so she came in. She had an appointment with neurology last week for follow-up that she had been waiting for it for some time , unfortunately it was canceled because of the coronavirus lockdown. She had a normal MRI of the brain last winter, she has not had an EEG. Onset: Sudden Duration: Other (15 to 30 seconds) Associated Symptoms: Reports: Other (Now has a very mild headache and nausea) - Related Data Allergies Allergy/AdvReac Type Severity Reaction Status Date / Time No Known Allergies Allergy Verified 05/04/19 17:26 Home Meds: Home Meds Albuterol Sulfate [Proventil Hfa] 2 puff IH Q6HR PRN 07/06/15 [History] buPROPion [buPROPion XL] 150 mg PO DAILY 06/13/18 [History] Fluticasone/Salmeterol [Advair Hfa 230-21 Mcg Inhaler] 2 puff INH Q12H PRN 02/22 [History] Acetaminophen [Tylenol Extra Strength] 1,000 mg PO Q6H tablet 02/24/19 [Rx] ondansetron HCL [Ondansetron HCl] 1 tab PO Q8H PRN 03/01/19 [History] SUMAtriptan Succinate [Imitrex] 25 mg PO ASDIRECTED #6 tablet 05/04/19 [Rx] Past Medical History HEENT History: Reports: Impaired Vision, Other (See Below) Other HEENT History: vision corrected with glasses, infected cracked tooth Cardiovascular History: Reports: Arrhythmia, Other (See Below) Other Cardiovascular History: heart palpitations Respiratory History: Reports: Asthma Other Respiratory History: uses inhaler Gastrointestinal History: Reports: GERD Other Gastrointestinal History: Umbilical hernia Genitourinary History: Reports: UTI, Recurrent 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: , 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 Other CREAM GATHERER History: 1st child born at 37+ weeks Musculoskeletal History: Reports: Other (See Below) Other Musculoskeletal History: knee pain Neurological History: Reports: Concussion, Migraines, Seizure Psychiatric History: Reports: ADD, ADHD, Anxiety, Bipolar, Depression Other Psychiatric History: no medication; "know how to control it" Endocrine/Metabolic History: Reports: Obesity/BMI 30+ Hematologic History: Reports: Anemia Other Hematologic History: recent and D&C september 22, 2014 Dermatologic History: Reports: Cellulitis Other Dermatologic History: history of cellulitis to right foot - Infectious Disease History Infectious Disease History: Reports: Influenza Other Infectious Disease History: unknown - Past Surgical History GI Surgical History: Reports: Hernia Repair/Other Female Surgical History: Reports: Tubal Ligation Social & Family History - Family History Family Medical History: Noncontributory Neurological: Reports: Seizure - Tobacco Use Smoking Status *Q: Never Smoker - Caffeine Use Caffeine Use: Reports: Soda - Recreational Drug Use Recreational Drug Use: No - Living Situation & Occupation Living situation: Reports: , with Family ED ROS GENERAL - Review of Systems Review Of Systems: See Below Constitutional: Reports: Malaise. Denies: Fever, Chills HEENT: Denies: Vision Change Respiratory: Denies: Shortness of Breath Cardiovascular: Denies: Chest Pain GI/Abdominal: Reports: Nausea. Denies: Vomiting Skin: Reports: No Symptoms Neurological: Reports: Headache ED EXAM, GENERAL - Physical Exam Exam: See Below Exam Limited By: Uncooperative General Appearance: No Apparent Distress Eye Exam: Bilateral Eye: Normal Inspection Respiratory/Chest: No Respiratory Distress, Lungs Clear Cardiovascular: Regular Rate, Rhythm Extremities: Normal Inspection Neurological: Alert, Oriented, No Motor/Sensory Deficits Psychiatric: Normal Affect, Normal Mood Course - Vital Signs Last Recorded V/S: Last Vital Signs Temp 98.7 F 05/09/19 14:45 Pulse 87 05/09/19 14:45 Resp 16 05/09/19 14:45 BP 146/74 H 05/09/19 14:45 Pulse Ox 94 L 05/09/19 14:45 - Re-Assessments/Exams Free Text/Narrative Re-Assessment/Exam: 05/09/19 15:12 I tried to contact the neurology department and her neurologist who canceled the appointment and they are unavailable. I think it would be safe to start the patient on Keppra, 250 mg daily for 4 days then twice daily for an additional 2 weeks. She will recheck with her primary care provider before the medication runs out to discuss whether it seems to be helping. Departure - Departure Time of Disposition: 15:05 Disposition: Home, Self-Care 01 Clinical Impression: Seizure-like activity - Discharge Information Instructions: Seizure, Adult, [id number] Referrals: Mimi Mistry CNM [Primary Care Provider] - Forms: ED Department Discharge Care Plan Goals: Continue your current medications, but add Keppra as prescribed for the next 2 weeks. If improving discuss this with your primary provider about refills until your neurology appointment. Sepsis Event Note - Evaluation Sepsis Screening Result: No Definite Risk - Focused Exam Vital Signs: Vital Signs Temp Pulse Resp BP Pulse Ox 05/09/19 14:45 98.7 F 87 16 146/74 H 94 L 05/09/19 14:43 98.7 F 87 16 146/74 H 94 L Date Exam was Performed: 05/09/19 Time Exam was Performed: 15:58
== END 2019-05-09 15:10 | disposition home or self-care (01) ==
LOC: JP.ED 14:29
CPT/HCPCS: 99283

== ENCOUNTER 2019-09-22 16:20 | Emergency (ER) | payer MEDICAID ==
[2019-09-22 16:55] VITALS: BP 140/87; PULSE 101
[2019-09-22] MEDS ORDERED: Ketorolac 30 MG/ML SDV IM ONE (18:11)
--- NOTE | 2019-09-22 18:14 | EDM.PDOC ---
ED HPI GENERAL MEDICAL PROBLEM - General Chief Complaint: Lower Extremity Injury/Pain Stated Complaint: FELL-HURT RT KNEE Time Seen by Provider: 09/22/19 18:08 Source of Information: Reports: Patient, RN Notes Reviewed History Limitations: Reports: No Limitations - History of Present Illness INITIAL COMMENTS - FREE TEXT/NARRATIVE: 24-year-old female presents emergency department a complaint of right knee pain, she injured herself while out shopping today she tripped over the curb had a twisting injury landed on her right knee now she is complaining of pain difficult for her to walk she is not taking anything for pain came right to the emergency department after the injury Left Knee Pain Score (Numeric/FACES): 9 - Related Data Allergies Allergy/AdvReac Type Severity Reaction Status Date / Time No Known Allergies Allergy Verified 05/04/19 17:26 Home Meds: Home Meds Albuterol Sulfate [Proventil Hfa] 2 puff IH Q6HR PRN 07/06/15 [History] Fluticasone Propion/Salmeterol [Advair Hfa 230-21 Mcg Inhaler] 2 puff INH Q12H PRN 02/22/19 [History] Acetaminophen [Tylenol Extra Strength] 1,000 mg PO Q6H tablet 02/24/19 [Rx] SUMAtriptan succinate [Imitrex] 25 mg PO ASDIRECTED #6 tablet 05/04/19 [Rx] Cyanocobalamin (Vitamin B12) [Vitamin B12] 1,000 mcg PO DAILY 09/22/19 [History] Cyclobenzaprine [Flexeril] 10 mg PO DAILY 09/22/19 [History] Sertraline [Zoloft] 50 mg PO DAILY 09/22/19 [History] Zonisamide 100 mg PO DAILY 09/22/19 [History] levETIRAcetam [Levetiracetam] 500 mg PO DAILY 09/22/19 [History] Past Medical History HEENT History: Reports: Impaired Vision, Other (See Below) Other HEENT History: vision corrected with glasses, infected cracked tooth Cardiovascular History: Reports: Arrhythmia, Other (See Below) Other Cardiovascular History: heart palpitations Respiratory History: Reports: Asthma Other Respiratory History: uses inhaler Gastrointestinal History: Reports: GERD Other Gastrointestinal History: Umbilical hernia Genitourinary History: Reports: UTI, Recurrent AUTOMATIC SCREWMAKER History: Reports: , Spontaneous Other AUTOMATIC SCREWMAKER History: 1st child born at 37+ weeks Neurological History: Reports: Concussion, Migraines, Seizure Psychiatric History: Reports: ADD, ADHD, Anxiety, Bipolar, Depression Other Psychiatric History: no medication; "know how to control it" Endocrine/Metabolic History: Reports: Obesity/BMI 30+ Hematologic History: Reports: Anemia Other Hematologic History: recent and D&C september 22, 2014 Dermatologic History: Reports: Cellulitis Other Dermatologic History: history of cellulitis to right foot - Infectious Disease History Infectious Disease History: Reports: Influenza Other Infectious Disease History: unknown - Past Surgical History GI Surgical History: Reports: Hernia Repair/Other Female Surgical History: Reports: Tubal Ligation Social & Family History - Family History Family Medical History: Noncontributory Neurological: Reports: Seizure - Tobacco Use Smoking Status *Q: Never Smoker - Caffeine Use Caffeine Use: Reports: None - Recreational Drug Use Recreational Drug Use: No - Living Situation & Occupation Living situation: Reports: , with Family Review of Systems - Review of Systems Review Of Systems: See Below Constitutional: Reports: No Symptoms Musculoskeletal: Reports: Joint Pain (Knee pain) Skin: Reports: No Symptoms ED EXAM, GENERAL - Physical Exam Exam: See Below Free Text/Narrative:: Examination of the right knee she does have a superficial abrasion over the patella otherwise not on appreciate any erythema there is no edema noted she is tender along the joint line medial aspect and she is tender with a valgus maneuver otherwise Lockman and anterior drawer both negative Course - Vital Signs Last Recorded V/S: Last Vital Signs Temp 98.7 F 09/22/19 17:08 Pulse 101 H 09/22/19 17:08 Resp 16 09/22/19 17:08 BP 140/87 09/22/19 17:08 Pulse Ox 98 09/22/19 17:08 - Orders/Labs/Meds Orders: Active Orders 24 hr Category Date Time Status Knee 3V Rt [CR] Stat Exams 09/22/19 18:11 Taken DME for Discharge [COMM] Per Unit Routine Oth 09/22/19 18:41 Ordered Meds: Medications Discontinued Medications Generic Name Dose Route Start Last Admin Trade Name Freq PRN Reason Stop Dose Admin Ketorolac Tromethamine 30 mg 09/22/19 18:11 09/22/19 18:17 Toradol IM 09/22/19 18:12 30 mg ONETIME ONE Administration Departure - Departure Time of Disposition: 18:45 Disposition: Home, Self-Care 01 Condition: Fair Clinical Impression: Right knee sprain Qualifiers: Encounter type: initial encounter Involved ligament of knee: unspecified ligament Qualified Code(s): S83.91XA - Sprain of unspecified site of right knee, initial encounter - Discharge Information Instructions: Knee Sprain, Adult Referrals: Mimi Mistry CNM [Primary Care Provider] - Forms: ED Department Discharge Additional Instructions: Use Tylenol or Motrin as needed for pain control, continue to use crutches for comfort, orthopedics will call you for an appointment time Sepsis Event Note (ED) - Evaluation Sepsis Screening Result: No Definite Risk - Focused Exam Vital Signs: Vital Signs Temp Pulse Resp BP Pulse Ox 09/22/19 17:08 98.7 F 101 H 16 140/87 98 09/22/19 16:54 98.7 F 101 H 16 140/87 98 - My Orders Last 24 Hours: My Active Orders 09/22/19 18:11 Knee 3V Rt [CR] Stat 09/22/19 18:41 DME for Discharge [COMM] Per Unit Routine - Assessment/Plan Last 24 Hours: My Active Orders 09/22/19 18:11 Knee 3V Rt [CR] Stat 09/22/19 18:41 DME for Discharge [COMM] Per Unit Routine Plan: Assessment Acuity = acute Site and laterality = right knee sprain Etiology = trauma twisting injury Manifestations = none Location of injury = Home Lab values = knee x-ray I did review films myself I cannot appreciate any acute process, the official read from radiology is pending Plan She is to use Tylenol or Motrin as needed for pain control, consultation set up with orthopedics, she is placed in an Jimi wrap and crutches with follow-up with orthopedics early next week This note was dictated using [employer] voice recognition software please call with any questions on syntax or grammar.
--- NOTE | 2019-09-23 10:06 | CR ---
Knee 3V Rt CLINICAL HISTORY: Fall FINDINGS: No acute fracture or dislocation is noted. There are no osseous lesions. Impression: Negative
== END 2019-09-22 18:57 | disposition home or self-care (01) ==
LOC: JP.ED 16:20
DX: S83.91XA Sprain of unspecified site of right knee, initial encounter (principal); J45.909 Unspecified asthma, uncomplicated; E66.9 Obesity, unspecified; F41.9 Anxiety disorder, unspecified; F32.9 Major depressive disorder, single episode, unspecified; Z68.37 Body mass index [BMI] 37.0-37.9, adult; Z79.899 Other long term (current) drug therapy; X50.1XXA Overexertion from prolonged static or awkward postures, initial encounter
CPT/HCPCS: 73562; 96372; 99283; J1885

== ENCOUNTER 2019-11-17 21:18 | Emergency (ER) | payer MEDICAID ==
[2019-11-17 21:40] VITALS: BP 139/79; PULSE 105
[2019-11-17] MEDS ORDERED: Alum Hydrox/Mag Hydrox/Simeth 15 ML, Lidocaine 2% 15 ML PO ONE ×2 (22:07)
--- NOTE | 2019-11-17 22:13 | EDM.PDOC ---
<Nishi Aranda M - Last Filed: 11/17/19 22:47> ED HPI GENERAL MEDICAL PROBLEM - General Chief Complaint: Abdominal Pain Stated Complaint: ABD PAIN CENTER/LT SIDE Time Seen by Provider: 11/17/19 22:08 Source of Information: Reports: Patient, Old Records, RN, RN Notes Reviewed History Limitations: Reports: No Limitations - History of Present Illness INITIAL COMMENTS - FREE TEXT/NARRATIVE: Pt here tonight with epigastric/abd pain that radiates to LQ for 4 days. Denies vomiting, fever, chills, diarrhea, or SOB. Does indicate nausea and stabbing pain to epigastric area on abd when tried to eat a bite of food tonight. Remote history April 2019 of hernia repair. Onset Date: 11/13/19 Duration: Recurring Location: Reports: Abdomen Quality: Reports: Stabbing Severity: Moderate Improves with: Reports: Rest abd Pain Score (Numeric/FACES): 5 - Related Data Allergies Allergy/AdvReac Type Severity Reaction Status Date / Time No Known Allergies Allergy Verified 11/17/19 21:50 Home Meds: Home Meds Albuterol Sulfate [Proventil Hfa] 2 puff IH Q6HR PRN 07/06/15 [History] Fluticasone Propion/Salmeterol [Advair Hfa 230-21 Mcg Inhaler] 2 puff INH Q12H PRN 02/22/19 [History] Acetaminophen [Tylenol Extra Strength] 1,000 mg PO Q6H tablet 02/24/19 [Rx] SUMAtriptan succinate [Imitrex] 25 mg PO ASDIRECTED #6 tablet 05/04/19 [Rx] Cyanocobalamin (Vitamin B12) [Vitamin B12] 1,000 mcg PO DAILY 09/22/19 [History] Sertraline [Zoloft] 50 mg PO DAILY 09/22/19 [History] Zonisamide 100 mg PO DAILY 09/22/19 [History] levETIRAcetam [Levetiracetam] 500 mg PO DAILY 09/22/19 [History] Past Medical History HEENT History: Reports: Impaired Vision, Other (See Below) Other HEENT History: vision corrected with glasses, infected cracked tooth Cardiovascular History: Reports: Arrhythmia, Other (See Below) Other Cardiovascular History: heart palpitations Respiratory History: Reports: Asthma Other Respiratory History: uses inhaler Gastrointestinal History: Reports: GERD Other Gastrointestinal History: Umbilical hernia Genitourinary History: Reports: UTI, Recurrent CENTER RECEPTIONIST History: Reports: , Spontaneous Other CENTER RECEPTIONIST History: 1st child born at 37+ weeks Musculoskeletal History: Reports: Other (See Below) Other Musculoskeletal History: knee pain Neurological History: Reports: Concussion, Migraines, Seizure Psychiatric History: Reports: ADD, ADHD, Anxiety, Bipolar, Depression Other Psychiatric History: no medication; "know how to control it" Endocrine/Metabolic History: Reports: Obesity/BMI 30+ Hematologic History: Reports: Anemia Other Hematologic History: recent and D&C september 22, 2014 Dermatologic History: Reports: Cellulitis Other Dermatologic History: history of cellulitis to right foot - Infectious Disease History Infectious Disease History: Reports: Chicken Pox Other Infectious Disease History: unknown - Past Surgical History GI Surgical History: Reports: Hernia Repair/Other Female Surgical History: Reports: Tubal Ligation Social & Family History - Family History Family Medical History: Noncontributory Neurological: Reports: Seizure - Tobacco Use Smoking Status *Q: Never Smoker - Caffeine Use Caffeine Use: Reports: Coffee - Recreational Drug Use Recreational Drug Use: No - Living Situation & Occupation Living situation: Reports: , with Family ED ROS GENERAL - Review of Systems Review Of Systems: See Below Constitutional: Reports: No Symptoms HEENT: Reports: No Symptoms Respiratory: Reports: No Symptoms Cardiovascular: Reports: No Symptoms Endocrine: Reports: No Symptoms GI/Abdominal: Reports: Abdominal Pain, Decreased Appetite, Nausea : Reports: No Symptoms Musculoskeletal: Reports: No Symptoms Skin: Reports: No Symptoms Neurological: Reports: No Symptoms Psychiatric: Reports: No Symptoms Hematologic/Lymphatic: Reports: No Symptoms Immunologic: Reports: No Symptoms ED EXAM, GI/ABD - Physical Exam Exam: See Below Exam Limited By: No Limitations General Appearance: Alert, WD/WN, No Apparent Distress Head: Normocephalic Neck: Normal Inspection Respiratory/Chest: No Respiratory Distress, Lungs Clear, Normal Breath Sounds, No Accessory Muscle Use Cardiovascular: Regular Rate, Rhythm GI/Abdominal Exam: Normal Bowel Sounds, Guarding, Tender, Other (midline epigastric area radiates to LQ) (Female) Exam: Deferred Rectal (Female) Exam: Deferred Neurological: Alert, Oriented Psychiatric: Normal Affect Skin Exam: Warm, Dry Course - Re-Assessments/Exams Free Text/Narrative Re-Assessment/Exam: 11/17/19 22:47 All labs are normal. Departure - Departure Time of Disposition: 22:48 Disposition: Home, Self-Care 01 Condition: Good Clinical Impression: Gastritis - Discharge Information *PRESCRIPTION DRUG MONITORING PROGRAM REVIEWED*: Not Applicable *COPY OF PRESCRIPTION DRUG MONITORING REPORT IN PATIENT WHITNEY: Not Applicable Instructions: Gastritis, Adult Referrals: Mimi Mistry CNM [Primary Care Provider] - Forms: ED Department Discharge Care Plan Goals: Take Omeprazole as prescribed. Please see Dr Walker if the pain and nausea continues. Seek medical attention immediately with acute changes. Sepsis Event Note (ED) - Evaluation Sepsis Screening Result: No Definite Risk - Problem List & Annotations (1) Gastroenteritis SNOMED Code(s): 03043146 Code(s): K52.9 - NONINFECTIVE GASTROENTERITIS AND COLITIS, UNSPECIFIED Status: Acute Priority: High - Problem List Review Problem List Initiated/Reviewed/Updated: Yes - Assessment/Plan Plan: Please buy an over the counter acid port purser such as Pepcid to help with the nausea and discomfort you have in your abdomen. Please see Dr Walker if the pain and nausea continues. Seek medical attention immediately with acute changes. <Aldair Robles - Last Filed: 11/18/19 07:00> Course - Vital Signs Last Recorded V/S: Last Vital Signs Temp 98.2 F 11/17/19 21:53 Pulse 105 H 11/17/19 21:53 Resp 16 11/17/19 21:53 BP 139/79 11/17/19 21:53 Pulse Ox 97 11/17/19 21:53 - Orders/Labs/Meds Labs: Laboratory Tests 11/17/19 11/17/19 Range/Units 22:07 22:07 WBC 10.4 (4.5-11.0) K/uL RBC 4.99 (3.30-5.50) M/uL Hgb 13.8 (12.0-15.0) g/dL Hct 43.6 (36.0-48.0) % MCV 87 (80-98) fL MCH 28 (27-31) pg MCHC 32 (32-36) % Plt Count 408 H (150-400) K/uL Neut % (Auto) 55 (36-66) % Lymph % (Auto) 33 (24-44) % Mcdowell % (Auto) 11 H (2-6) % Eos % (Auto) 1 L (2-4) % Baso % (Auto) 1 (0-1) % Sodium 138 L (140-148) mmol/L Potassium 3.8 (3.6-5.2) mmol/L Chloride 104 (100-108) mmol/L Carbon Dioxide 24 (21-32) mmol/L Anion Gap 13.8 (5.0-14.0) mmol/L BUN 13 (7-18) mg/dL Creatinine 0.9 (0.6-1.0) mg/dL Est Cr Clr Drug Dosing 79.04 mL/min Estimated GFR (MDRD) > 60 (>60) Glucose 115 H (74-106) mg/dL Calcium 9.1 (8.5-10.1) mg/dL Total Bilirubin 0.2 (0.2-1.0) mg/dL AST 9 L (15-37) U/L ALT 24 (12-78) U/L Alkaline Phosphatase 90 (46-116) U/L Total Protein 8.6 H (6.4-8.2) g/dL Albumin 3.5 (3.4-5.0) g/dL Globulin 5.1 H (2.3-3.5) g/dL Albumin/Globulin Ratio 0.7 L (1.2-2.2) Lipase 89 (73-393) U/L Meds: Medications Discontinued Medications Generic Name Dose Route Start Last Admin Trade Name Freq PRN Reason Stop Dose Admin Al Hydroxide/Mg Hydroxide 15 0 ml 11/17/19 22:07 11/17/19 22:15 ml/ Lidocaine HCl 15 ml PO 11/17/19 22:08 30 ml ONETIME ONE Administration Sepsis Event Note (ED) - Focused Exam Vital Signs: Vital Signs Temp Pulse Resp BP Pulse Ox 11/17/19 21:53 98.2 F 105 H 16 139/79 97 11/17/19 21:37 98.2 F 105 H 16 139/79 97 Attestation - Student - Attestation Statement Attestation Statement: I personally performed or re-performed the physical examination and medical decision making. I have verified all student documentation or findings, including history, physical exam and/or medical decision making.
== END 2019-11-17 22:56 | disposition home or self-care (01) ==
LOC: JP.ED 21:18
DX: K29.70 Gastritis, unspecified, without bleeding (principal); J45.909 Unspecified asthma, uncomplicated; R56.9 Unspecified convulsions; E66.9 Obesity, unspecified; Z68.39 Body mass index [BMI] 39.0-39.9, adult; Z79.899 Other long term (current) drug therapy
CPT/HCPCS: 36415; 80053; 83690; 85025; 99284; A9270; 99283

== ENCOUNTER 2019-11-27 16:31 | Emergency (ER) | payer MEDICAID ==
[2019-11-27 16:55] VITALS: BP 145/84; PULSE 89
--- NOTE | 2019-11-27 17:19 | EDM.PDOC ---
ED HPI GENERAL MEDICAL PROBLEM - General Chief Complaint: Upper Extremity Injury/Pain Stated Complaint: SEIZURE, FELL AND LEFT HAND HURTS Time Seen by Provider: 11/27/19 17:07 Source of Information: Reports: Patient, RN Notes Reviewed History Limitations: Reports: No Limitations - History of Present Illness INITIAL COMMENTS - FREE TEXT/NARRATIVE: 24-year-old female presents emergency department today complaint of left thumb and wrist pain, she has a known seizure disorder she had a seizure last night injured her thumb unclear mechanism of action. She is has limited range of motion wrist and thumb - Related Data Allergies Allergy/AdvReac Type Severity Reaction Status Date / Time No Known Allergies Allergy Verified 11/27/19 16:59 Home Meds: Home Meds Albuterol Sulfate [Proventil Hfa] 2 puff IH Q6HR PRN 07/06/15 [History] Fluticasone Propion/Salmeterol [Advair Hfa 230-21 Mcg Inhaler] 2 puff INH Q12H PRN 02/22/19 [History] Acetaminophen [Tylenol Extra Strength] 1,000 mg PO Q6H tablet 02/24/19 [Rx] SUMAtriptan succinate [Imitrex] 25 mg PO ASDIRECTED #6 tablet 05/04/19 [Rx] Cyanocobalamin (Vitamin B12) [Vitamin B12] 1,000 mcg PO DAILY 09/22/19 [History] Sertraline [Zoloft] 50 mg PO DAILY 09/22/19 [History] Zonisamide 100 mg PO DAILY 09/22/19 [History] levETIRAcetam [Levetiracetam] 500 mg PO DAILY 09/22/19 [History] Past Medical History HEENT History: Reports: Impaired Vision, Other (See Below) Other HEENT History: vision corrected with glasses, infected cracked tooth Cardiovascular History: Reports: Arrhythmia, Other (See Below) Other Cardiovascular History: heart palpitations Respiratory History: Reports: Asthma Other Respiratory History: uses inhaler Gastrointestinal History: Reports: GERD Other Gastrointestinal History: Umbilical hernia Genitourinary History: Reports: UTI, Recurrent CLINICAL INFORMATICS EDUCATOR History: Reports: , Spontaneous Other CLINICAL INFORMATICS EDUCATOR History: 1st child born at 37+ weeks Musculoskeletal History: Reports: Other (See Below) Other Musculoskeletal History: knee pain Neurological History: Reports: Concussion, Migraines, Seizure Psychiatric History: Reports: ADD, ADHD, Anxiety, Bipolar, Depression Other Psychiatric History: no medication; "know how to control it" Endocrine/Metabolic History: Reports: Obesity/BMI 30+ Hematologic History: Reports: Anemia Other Hematologic History: recent and D&C september 22, 2014 Dermatologic History: Reports: Cellulitis Other Dermatologic History: history of cellulitis to right foot - Infectious Disease History Infectious Disease History: Reports: Chicken Pox Other Infectious Disease History: unknown - Past Surgical History GI Surgical History: Reports: Hernia Repair/Other Female Surgical History: Reports: Tubal Ligation Social & Family History - Family History Family Medical History: Noncontributory Neurological: Reports: Seizure - Tobacco Use Tobacco Use Status *Q: Never Tobacco User - Caffeine Use Caffeine Use: Reports: Coffee - Living Situation & Occupation Living situation: Reports: , with Family Review of Systems - Review of Systems Review Of Systems: See Below Musculoskeletal: Reports: Hand Pain ED EXAM, GENERAL - Physical Exam Exam: See Below Free Text/Narrative:: Examination of the left wrist area I do not appreciate any erythema there is no edema noted limited range of motion of thumb and wrist secondary to pain she has limited range of digits 2 through 5 secondary to pain radial pulses +2 sensation is intact Course - Vital Signs Last Recorded V/S: Last Vital Signs Temp 97.6 F 11/27/19 17:04 Pulse 89 11/27/19 17:04 Resp 16 11/27/19 17:04 BP 145/84 H 11/27/19 17:04 Pulse Ox 97 11/27/19 17:04 - Orders/Labs/Meds Orders: Active Orders 24 hr Category Date Time Status Hand Comp Min 3V Lt [CR] Stat Exams 11/27/19 17:17 Taken Departure - Departure Time of Disposition: 17:54 Disposition: Home, Self-Care 01 Condition: Fair Clinical Impression: Left thumb sprain Qualifiers: Encounter type: initial encounter Sprain of finger site: unspecified site Qualified Code(s): S63.602A - Unspecified sprain of left thumb, initial encounter - Discharge Information Instructions: Finger Sprain, Adult Referrals: Mimi Mistry CNM [Primary Care Provider] - Forms: ED Department Discharge Additional Instructions: Use Tylenol or Motrin as needed for pain control, please followup with your primary care provider in 3-5 days if not better, please call return to the emergency department with worsening of symptoms. Sepsis Event Note (ED) - Evaluation Sepsis Screening Result: No Definite Risk - Focused Exam Vital Signs: Vital Signs Temp Pulse Resp BP Pulse Ox 11/27/19 17:04 97.6 F 89 16 145/84 H 97 11/27/19 16:54 97.6 F 89 16 145/84 H 97 - My Orders Last 24 Hours: My Active Orders 11/27/19 17:17 Hand Comp Min 3V Lt [CR] Stat - Assessment/Plan Last 24 Hours: My Active Orders 11/27/19 17:17 Hand Comp Min 3V Lt [CR] Stat Plan: Assessment Acuity = acute Site and laterality = left thumb sprain Etiology = trauma during seizure Manifestations = none Location of injury = Home Lab values = hand x-ray reveals no acute process official read radiology is pending Plan Tylenol or Motrin as needed for pain control, follow-up primary care 3 to 5 days if not better This note was dictated using [employer] voice recognition software please call with any questions on syntax or grammar.
--- NOTE | 2019-11-29 09:33 | CR ---
Hand Comp Min 3V Lt CLINICAL HISTORY: Pain and trauma FINDINGS: There is no acute fracture or dislocation of the hand. Impression: Negative
== END 2019-11-27 18:06 | disposition home or self-care (01) ==
LOC: JP.ED 16:31
DX: S63.602A Unspecified sprain of left thumb, initial encounter (principal); G40.909 Epilepsy, unspecified, not intractable, without status epilepticus; J45.909 Unspecified asthma, uncomplicated; E66.9 Obesity, unspecified; F41.9 Anxiety disorder, unspecified; F32.9 Major depressive disorder, single episode, unspecified; Z98.51 Tubal ligation status; Z68.38 Body mass index [BMI] 38.0-38.9, adult; X58.XXXA Exposure to other specified factors, initial encounter
CPT/HCPCS: 73130-26-LT; 73130-LT; 99282; 99283

== ENCOUNTER 2020-01-07 08:43 | Inpatient (IN) | payer MEDICAID ==
[~2020-01-07 08:43] MED LIST: Dexamethasone 4 MG/ML SDV ONE; Glycopyrrolate 0.2 MG/ML 5 ML MDV ONE; Neostigmine Methylsulfate 1 MG/ML 5 ML Syringe ONE; Ondansetron 4 MG/2 ML SDV ONE; Propofol 200 MG/20 ML SDV ONE; Rocuronium 50 MG/5 ML Vial ONE; Succinylcholine 200 MG/10 ML MDV ONE
[2020-01-07] MEDS ORDERED: Acetaminophen 500 MG Tab PO ONE (09:00)
[2020-01-07] MEDS ORDERED: Celecoxib 200 MG Cap PO ONE ×2 (09:00→09:31)
[2020-01-07] MEDS ORDERED: Dextrose 5%-Lactated Ringers 1,000 ML IV SCH (09:00)
[2020-01-07] MEDS ORDERED: cefOXitin 2 GM in Sodium Chloride 0.9% 50 ML IV ONE (09:00)
[2020-01-07] MEDS ORDERED: Albuterol/Ipratropium 3.0-0.5 MG/3 ML Neb Soln NEB ONE (09:00)
[2020-01-07] MEDS ORDERED: Gabapentin 300 MG Cap PO ONE (09:00)
[2020-01-07] MEDS ORDERED: cefOXitin 2 GM Vial ONE ×2 (09:12→12:51)
[2020-01-07] MEDS ORDERED: Ketamine 50 MG in Sodium Chloride 0.9% 49.5 ML IV SCH (10:30)
[2020-01-07] MEDS ORDERED: Ketamine 500 MG/5 ML MDV IV SCH (10:30)
[2020-01-07] MEDS ORDERED: Magnesium Sulfate 3 GM in Sodium Chloride 0.9% 100 ML IV SCH (10:30)
[2020-01-07] MEDS ORDERED: Magnesium Sulfate 4.8 GM in Sodium Chloride 0.9% 250 ML IV ONE (10:30)
[2020-01-07] MEDS ORDERED: fentaNYL 250 MCG/5 ML SDV ONE ×2 (11:37→12:01)
[2020-01-07] MEDS ORDERED: diphenhydrAMINE 50 MG/ML SDV IVPUSH PRN ×2 (12:40→15:00)
[2020-01-07] MEDS ORDERED: Naloxone 0.4 MG/ML SDV IVPUSH PRN (12:40)
[2020-01-07] MEDS ORDERED: diphenhydrAMINE 25 MG Cap PO PRN (12:40)
[2020-01-07] MEDS ORDERED: HYDROmorphone/Normal Saline 15 MG/30 ML PCA IV PRN (12:40)
[2020-01-07] MEDS ORDERED: Ondansetron 4 MG/2 ML SDV IVPUSH PRN (12:40)
[2020-01-07] MEDS ORDERED: Naloxone 0.4 MG/ML SDV IV PRN (13:00)
[2020-01-07] MEDS ORDERED: fentaNYL 100 MCG/2 ML SDV ONE ×2 (13:09→13:35)
[2020-01-07] MEDS ORDERED: Labetalol 20 MG/4 ML Syringe ONE (13:10)
[2020-01-07] MEDS ORDERED: hydrOXYzine HCL 100 MG/2 ML SDV IM ONE (14:00)
[2020-01-07] MEDS ORDERED: Cyclobenzaprine 10 MG Tab PO PRN (14:52)
[2020-01-07] MEDS ORDERED: hydrOXYzine HCL 100 MG/2 ML SDV IM PRN (15:00)
[2020-01-07] MEDS ORDERED: Calcium Gluconate 10% 1 GM/10 ML SDV IVPUSH PRN (15:00)
[2020-01-07] MEDS ORDERED: Albuterol/Ipratropium 3.0-0.5 MG/3 ML Neb Soln INH PRN (15:00)
[2020-01-07] MEDS ORDERED: Metoclopramide 10 MG/2 ML SDV IVPUSH PRN (15:00)
[2020-01-07] MEDS ORDERED: Labetalol 20 MG/4 ML Syringe IVPUSH PRN (15:00)
[2020-01-07] MEDS ORDERED: Acetaminophen 500 MG Tab PO PRN (15:00)
[2020-01-07] MEDS: Albuterol/Ipratropium 3.0-0.5 MG/3 ML Neb Soln INH SCH ×2 (17:25→21:29)
[2020-01-07] MEDS: Pantoprazole 40 MG Vial IVPUSH SCH (17:29)
[2020-01-07] MEDS: MVI, Adult with Vitamin K 10 ML, Thiamine 200 MG, Chromium/Copper/Mang/Selen/Zn 1 ML in... IV SCH ×4 (17:30)
[2020-01-07] MEDS: cefOXitin 2 GM in Sodium Chloride 0.9% 50 ML IV SCH ×2 (17:36→23:38)
[2020-01-07] MEDS: Acetaminophen 500 MG Tab PO SCH (18:22)
[2020-01-07] MEDS: Ondansetron 4 MG/2 ML SDV IVPUSH PRN (19:19)
[2020-01-07] MEDS: Heparin Sodium 5,000 Units/ML Vial SUBCUT SCH (21:16)
[2020-01-07] MEDS: Formoterol/Mometasone 200-5 MCG 8.8 GM Inhaler IH SCH (21:16)
[2020-01-07] MEDS: Zonisamide 50 MG Capsule PO SCH (21:16)
[2020-01-07] MEDS: Dextrose 5%-Lactated Ringers 1,000 ML IV SCH (23:33)
[2020-01-08] MEDS: Acetaminophen 500 MG Tab PO SCH ×3 (01:17→17:17)
[2020-01-08] MEDS: Ondansetron 4 MG/2 ML SDV IVPUSH PRN (01:29)
[2020-01-08] MEDS ORDERED: Iopamidol 612 MG/ML 50 ML SDV PO STA (02:52)
[2020-01-08] MEDS: cefOXitin 2 GM in Sodium Chloride 0.9% 50 ML IV SCH ×4 (05:17→23:01)
--- NOTE | 2020-01-08 06:07 | CRLCR ---
INDICATION: Status post gastric sleeve, evaluate for leakage TECHNIQUE: Abdomen modified upper GI COMPARISON: None FINDINGS: Oral contrast identified within the gastric sleeve and proximal small bowel loops with no evidence for extravasation/leakage. The remainder the exam is essentially unremarkable. Surgical drain identified in the left upper quadrant. IMPRESSION: No evidence for extravasation size leakage from the gastric sleeve. Dictated by Sumit Yepez MD @ 01/08/2020 6:05:09 AM Dictated by: Sumit Yepez MD @ 01/08/2020 06:05:15 (Electronically Signed)
[2020-01-08] MEDS: Dextrose 5%-Lactated Ringers 1,000 ML IV SCH (06:21)
[2020-01-08] MEDS: Formoterol/Mometasone 200-5 MCG 8.8 GM Inhaler IH SCH ×2 (07:14→20:15)
[2020-01-08] MEDS: Albuterol/Ipratropium 3.0-0.5 MG/3 ML Neb Soln INH SCH ×4 (07:15→20:15)
[2020-01-08] MEDS ORDERED: Ondansetron 4 MG Tab.DIS PO PRN (07:17)
[2020-01-08] MEDS ORDERED: Dextrose 5%-Lactated Ringers 1,000 ML IV SCH (07:30)
--- NOTE | 2020-01-08 08:37 | PN ---
DATE OF SERVICE: 01/08/2020 HISTORY OF PRESENT ILLNESS: Jazmyn is postoperative day 1 following an open sleeve gastrectomy. She had no operative complications. 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 She had 3 episodes of heart block during the night. The first 1 was second-degree block. The second one was third-degree block lasting 2 to 3 seconds, and she did have an emesis. She states she has had these episodes at home and had to resign her position working at [employer] because these would happen. She had a heart monitor on for a short period, but was followed up by a neurologist and treated for she states seizures. Prior to surgery, she did have a clearance from her neurologist. Heart monitor strips reviewed in chart. This morning, she has been up ambulating. Heart rate is 95 to 101. Denies any chest pain or shortness of breath. The first episode, when she had the second-degree block, she was sound asleep. Oral intake 700 on a step one diet. Urine output is 1100. She was straight cathed after a bladder scan, and she had 900 mL. ROBERT drain put out 50 mL of a light-pink drainage. REVIEW OF SYSTEMS: Remainder of review of systems negative for any pertinent positives and negatives. OBJECTIVE: GENERAL: Jazmyn Mahan is a pleasant 24-year-old female. She is alert and orientated. VITAL SIGNS: TPR at 0327; 97.9, 95, 16, blood pressure 136/72, and O2 by pulse oximetry 96%. HEENT: Negative. NECK: Supple. HEART: Regular rate and rhythm. LUNGS: Clear. ABDOMEN: Dressing is dry and intact. Abdominal binder is on. EXTREMITIES: Without peripheral edema. ASSESSMENT: 1. Diagnostic laparoscopy converted to laparoscopy. a. Vertical sleeve gastrectomy. b. Liver biopsy. c. Repair of paraesophageal hernia with mesh. 2. Postoperative diagnosis: a. Morbid obesity. b. Hepatomegaly. c. Periesophageal diaphragmatic hernia. d. Intraabdominal adhesions. 3. Second and third degree heart block. PLAN: 1. Consult Regulo Polk MD, hospitalist for second and third degree heart block. 2. Decrease IV to 100 mL per hour. 3. Step 2 gastric bypass diet with no cereal. 4. Discontinue CONCRETE PRODUCTS DISPATCHER. 5. Dressing off, may shower. 6. Check CBC, CMP, mag, and phos now. 7. Dilaudid 2 to 4 mg every 4 hours p.r.n. pain. 8. Continue use of incentive spirometer and ambulation. 9. We will evaluate p.r.n. or in the a.m. Niurka Underwood PA-C /[id number]
[2020-01-08] MEDS: Heparin Sodium 5,000 Units/ML Vial SUBCUT SCH ×2 (09:48→20:14)
[2020-01-08] MEDS: levETIRAcetam 250 MG Tab PO SCH (09:49)
[2020-01-08] MEDS: Sertraline 50 MG Tab PO SCH (09:49)
[2020-01-08] MEDS: Celecoxib 200 MG Cap PO SCH ×2 (09:49→20:15)
[2020-01-08] MEDS: HYDROmorphone 2 MG Tab PO PRN ×3 (14:28→23:00)
--- NOTE | 2020-01-08 16:18 | PCM.CONS ---
H&P History of Present Illness - General Date of Service: 01/08/20 Admit Problem/Dx: Admission Diagnosis/Problem Admission Diagnosis/Problem Obesity History Limitations: Reports: No Limitations - History of Present Illness Initial Comments - Free Text/Narative: Ms. Mahan is a 24-year-old woman who I been asked to see by Dr. Walker and Niurka Underwood concerning episodes of second and third-degree AV block. She was admitted on Friday and underwent gastric sleeve procedure. Since admission she has been noted to have episodes of severe bradycardia with second-degree AV block and also episodes of third-degree AV block. These episodes are limited lasting less than 1 minute and associated with symptoms of nausea, weakness, diaphoresis, and lightheadedness. She has had a history of spells over the last 3 years with no obvious tonic-clonic seizure activity but episodes of unawareness and unresponsiveness. Was felt that she was likely experiencing seizures and was started on antiepileptic medication last spring. Since then she has had no further episodes. She does give a history of vagal episodes lightheadedness weakness and nausea with blood draws and a recent piercing. She has no significant metabolic abnormalities to explain the bradycardia and block. Review of medications show possible contributing medications with labetalol, and a potential interaction between Zyprexa and Zosyn. Abdomen Pain Score (Numeric/FACES): 4 - Related Data Allergies/Adverse Reactions: Allergies Allergy/AdvReac Type Severity Reaction Status Date / Time No Known Allergies Allergy Verified 11/27/19 16:59 Home Medications: Home Meds Albuterol Sulfate [Proventil Hfa] 2 puff IH Q6HR PRN 07/06/15 [History] Fluticasone Propion/Salmeterol [Advair Hfa 230-21 Mcg Inhaler] 2 puff INH Q12H PRN 02/22/19 [History] Acetaminophen [Tylenol Extra Strength] 1,000 mg PO Q6H tablet 02/24/19 [Rx] Cyanocobalamin (Vitamin B12) [Vitamin B12] 1,000 mcg PO DAILY 09/22/19 [History] Sertraline [Zoloft] 50 mg PO DAILY 09/22/19 [History] Zonisamide 100 mg PO BEDTIME 09/22/19 [History] levETIRAcetam [Levetiracetam] 500 mg PO DAILY 09/22/19 [History] Celecoxib [CeleBREX] 1 cap BID 01/03/20 [History] Omeprazole 20 mg PO DAILY 01/03/20 [History] Triamcinolone Acetonide [Triamcinolone Acetonide 0.1% Crm] 1 applic TOP BID 01/03/20 [History] Past Medical History HEENT History: Reports: Impaired Vision, Other (See Below) Other HEENT History: vision corrected with glasses, infected cracked tooth Cardiovascular History: Reports: Arrhythmia, Other (See Below) Other Cardiovascular History: heart palpitations Respiratory History: Reports: Asthma Other Respiratory History: uses inhaler Gastrointestinal History: Reports: GERD Other Gastrointestinal History: Umbilical hernia Genitourinary History: Reports: UTI, Recurrent [employer] History: Reports: , Spontaneous Other OB/BYN History: 1st child born at 37+ weeks Musculoskeletal History: Reports: Other (See Below) Other Musculoskeletal History: knee pain Neurological History: Reports: Concussion, Migraines, Seizure Psychiatric History: Reports: ADD, ADHD, Anxiety, Bipolar, Depression Other Psychiatric History: no medication; "know how to control it" Endocrine/Metabolic History: Reports: Obesity/BMI 30+ Hematologic History: Reports: Anemia Other Hematologic History: recent and D&C september 22, 2014 Dermatologic History: Reports: Cellulitis Other Dermatologic History: history of cellulitis to right foot - Infectious Disease History Infectious Disease History: Reports: Chicken Pox Other Infectious Disease History: unknown - Past Surgical History HEENT Surgical History: Reports: None Cardiovascular Surgical History: Reports: None Respiratory Surgical History: Reports: None GI Surgical History: Reports: Hernia Repair/Other Other GI Surgeries/Procedures: Umbilical hernia repair with mesh December 2013, Umbilical hernia repair with mesh 03/31 Female Surgical History: Reports: Tubal Ligation Endocrine Surgical History: Reports: None Neurological Surgical History: Reports: None Musculoskeletal Surgical History: Reports: None Oncologic Surgical History: Reports: None Dermatological Surgical History: Reports: None Social & Family History - Family History Family Medical History: No Pertinent Family History Neurological: Reports: Seizure - Tobacco Use Tobacco Use Status *Q: Former Tobacco User Used Tobacco, but Quit: Yes Month/Year Tobacco Last Used: 5 years - Caffeine Use Caffeine Use: Reports: None - Recreational Drug Use Recreational Drug Use: No - Living Situation & Occupation Living situation: Reports: , with Family H&P Review of Systems - Review of Systems: Review Of Systems: See Below General: Reports: No Symptoms HEENT: Reports: No Symptoms Pulmonary: Reports: No Symptoms Cardiovascular: Reports: Lightheadedness. Denies: Chest Pain, Dyspnea on Exertion, Orthopnea, PND, Edema, Syncope Gastrointestinal: Reports: Abdominal Pain, Nausea. Denies: Diarrhea, Difficulty Swallowing, Distension, Hematemesis, Hematochezia, Melena, Vomiting Genitourinary: Reports: No Symptoms Exam - Exam Exam: See Below - Vital Signs Vital Signs: Last Vital Signs Temp 97.2 F 01/08/20 14:35 Pulse 78 01/08/20 14:35 Resp 16 01/08/20 14:35 BP 144/89 H 01/08/20 14:35 Pulse Ox 97 01/08/20 14:35 Weight: 222 lb - Exam Quality Assessment: DVT Prophylaxis General: Alert, Oriented, Cooperative, Moderate Distress Neck: Supple, Trachea Midline, +2 Carotid Pulse wo Bruit Lungs: Clear to Auscultation, Normal Respiratory Effort Cardiovascular: Regular Rate, Regular Rhythm, Normal S1, Normal S2. No: Systolic Murmur, Diastolic Murmur Back Exam: Normal Inspection, Full Range of Motion Extremities: Non-Tender, No Pedal Edema Skin: Warm, Dry - Patient Data Lab Results Last 24 hrs: Laboratory Results - last 24 hr 01/08/20 01/08/20 Range/Units 07:39 07:39 WBC 22.4 H (4.5-11.0) K/uL RBC 4.30 (3.30-5.50) M/uL Hgb 11.8 L D (12.0-15.0) g/dL Hct 38.0 (36.0-48.0) % MCV 88 (80-98) fL MCH 27 (27-31) pg MCHC 31 L (32-36) % Plt Count 333 (150-400) K/uL Sodium 139 L (140-148) mmol/L Potassium 4.1 (3.6-5.2) mmol/L Chloride 106 (100-108) mmol/L Carbon Dioxide 22 (21-32) mmol/L Anion Gap 15.1 H (5.0-14.0) mmol/L BUN 7 (7-18) mg/dL Creatinine 1.0 (0.6-1.0) mg/dL Est Cr Clr Drug Dosing 71.14 mL/min Estimated GFR (MDRD) > 60 (>60) Glucose 150 H (74-106) mg/dL Calcium 8.8 (8.5-10.1) mg/dL Phosphorus 2.5 (2.5-4.9) mg/dL Magnesium 2.5 H D (1.8-2.4) mg/dL Total Bilirubin 0.4 D (0.2-1.0) mg/dL AST 19 D (15-37) U/L ALT 35 (12-78) U/L Alkaline Phosphatase 80 (46-116) U/L Total Protein 7.0 (6.4-8.2) g/dL Albumin 3.0 L (3.4-5.0) g/dL Globulin 4.0 H (2.3-3.5) g/dL Albumin/Globulin Ratio 0.8 L (1.2-2.2) Result Diagrams: 01/08/20 07:39 01/08/20 07:39 Sepsis Event Note - Evaluation Sepsis Screening Result: No Definite Risk - Focused Exam Vital Signs: Vital Signs Temp Pulse Resp BP Pulse Ox 01/08/20 14:35 97.2 F 78 16 144/89 H 97 01/08/20 11:13 97.6 F 91 16 138/78 100 01/08/20 10:49 96 01/08/20 07:56 98.3 F 98 16 128/76 96 01/08/20 07:30 97 01/08/20 07:16 101 H Consult PN Assessment/Plan Procedures: Procedures AIRWAY INHALATION TREATMENT (02/23/19) APPLICATION LONG LEG SPLINT (03/09/15) ASSAY OF AMYLASE (07/22/15) ASSAY OF FIBRONECTIN (12/28/15) ASSAY OF LACTIC ACID (09/11/15) ASSAY OF LIPASE (11/17/19) ASSAY OF MAGNESIUM (02/23/19) ASSAY OF PHOSPHORUS (02/23/19) ASSAY THYROID STIM HORMONE (10/08/13) BLOOD TYPING SEROLOGIC ABO (12/21/19) BLOOD TYPING SEROLOGIC RH(D) (12/21/19) C-REACTIVE PROTEIN (04/13/15) CHEST X-RAY 2VW FRONTAL&LATL (04/13/15) CHORIONIC GONADOTROPIN ASSAY (07/22/15) CHORIONIC GONADOTROPIN TEST (09/11/15) CHYLMD TRACH DNA AMP PROBE (11/01/14) COMPLETE CBC AUTOMATED (02/23/19) COMPLETE CBC W/AUTO DIFF WBC (11/17/19) COMPREHEN METABOLIC PANEL (11/17/19) CT ABD & PELV W/CONTRAST (07/22/15) CT HEAD/BRAIN W/O DYE (09/05/17) CT MAXILLOFACIAL W/O DYE (09/05/17) CT NECK SPINE W/O DYE (09/05/17) CULTURE AEROBIC IDENTIFY (11/09/13) CULTURE OTHR SPECIMN AEROBIC (11/09/13) CULTURE SCREEN ONLY (06/13/18) DRAINAGE OF SKIN ABSCESS (11/09/13) ECHO EXAM OF ABDOMEN (10/08/16) EGD BIOPSY SINGLE/MULTIPLE (08/11/15) ELECTROCARDIOGRAM REPORT (10/08/13) ELECTROCARDIOGRAM TRACING (09/05/17) EMERGENCY DEPT VISIT (11/27/19) EMERGENCY DEPT VISIT (11/17/19) EMERGENCY DEPT VISIT (09/22/19) EMERGENCY DEPT VISIT (04/13/19) EMERGENCY DEPT VISIT (04/04/19) EMERGENCY DEPT VISIT (03/22/19) EMERGENCY DEPT VISIT (03/22/19) EMERGENCY DEPT VISIT (12/31/18) EMERGENCY DEPT VISIT (06/13/18) EMERGENCY DEPT VISIT (03/30/18) EMERGENCY DEPT VISIT (09/05/17) EMERGENCY DEPT VISIT (07/24/17) EMERGENCY DEPT VISIT (06/06/17) EMERGENCY DEPT VISIT (05/07/17) EMERGENCY DEPT VISIT (03/24/17) EMERGENCY DEPT VISIT (07/25/16) EMERGENCY DEPT VISIT (06/03/16) EMERGENCY DEPT VISIT (05/23/16) EMERGENCY DEPT VISIT (04/29/16) EMERGENCY DEPT VISIT (10/17/15) EMERGENCY DEPT VISIT (10/11/15) EMERGENCY DEPT VISIT (10/08/15) EMERGENCY DEPT VISIT (09/22/15) EMERGENCY DEPT VISIT (07/19/15) EMERGENCY DEPT VISIT (07/14/15) EMERGENCY DEPT VISIT (07/01/15) EMERGENCY DEPT VISIT (06/14/15) EMERGENCY DEPT VISIT (06/14/15) EMERGENCY DEPT VISIT (06/03/15) EMERGENCY DEPT VISIT (06/03/15) EMERGENCY DEPT VISIT (04/21/15) EMERGENCY DEPT VISIT (04/13/15) EMERGENCY DEPT VISIT (04/13/15) EMERGENCY DEPT VISIT (04/08/15) EMERGENCY DEPT VISIT (11/01/14) EMERGENCY DEPT VISIT (02/10/14) EMERGENCY DEPT VISIT (02/10/14) EMERGENCY DEPT VISIT (01/17/14) EMERGENCY DEPT VISIT (01/17/14) EMERGENCY DEPT VISIT (12/17/13) EMERGENCY DEPT VISIT (12/04/13) EMERGENCY DEPT VISIT (12/04/13) EMERGENCY DEPT VISIT (11/30/13) EMERGENCY DEPT VISIT (11/30/13) EMERGENCY DEPT VISIT (10/24/13) EMERGENCY DEPT VISIT (06/15/13) EMERGENCY DEPT VISIT (05/30/13) EMERGENCY DEPT VISIT (05/25/13) EMERGENCY DEPT VISIT (05/06/13) EMERGENCY DEPT VISIT (04/25/13) EVAL AMNIOTIC FLUID PROTEIN (03/08/16) GLUCOSE BLOOD TEST (10/17/15) HYDRATE IV INFUSION ADD-ON (10/30/16) HYDRATION IV INFUSION INIT (09/24/13) INFLUENZA ASSAY W/OPTIC (04/04/19) LAP INC TAD RECUR COMP (02/23/19) LAP VENT/ABD TAD PROC COMP (03/31/15) LAPARO PROC ABDM/PER/OMENT (03/31/15) METABOLIC PANEL TOTAL CA (03/08/16) MICROBE SUSCEPTIBLE ANIBAL (11/09/13) MRI BRAIN STEM W/O & W/DYE (11/24/18) N.GONORRHOEAE DNA AMP PROB (11/01/14) OB US < 14 WKS SINGLE FETUS (09/12/15) OB US >/= 14 WKS SNGL FETUS (11/15/15) OFFICE/OUTPATIENT VISIT EST (03/08/16) POLYSOM 6/> YRS 4/> HUMA (11/21/19) RBC ANTIBODY SCREEN (12/21/19) ROUTINE VENIPUNCTURE (12/21/19) RPR F/E/E/N/L/M 2.5 CM/< (09/05/17) SMEAR GRAM STAIN (11/09/13) SMEAR WET [place] SALINE/INK (01/20/16) STREP A AG IA (06/13/18) STREP A ASSAY W/OPTIC (04/04/19) THER/PROPH/DIAG INJ IV PUSH (10/30/16) THER/PROPH/DIAG INJ SC/IM (09/22/19) THER/PROPH/DIAG IV INF INIT (04/01/15) TISSUE EXAM BY PATHOLOGIST (08/11/15) TISSUE EXAM BY PATHOLOGIST (03/31/15) TISSUE EXAM BY PATHOLOGIST (03/31/15) TISSUE EXAM BY PATHOLOGIST (03/31/15) TISSUE EXAM BY PATHOLOGIST (01/24/14) TRANSVAGINAL US NON-OB (04/28/15) TRANSVAGINAL US OBSTETRIC (02/10/14) TX/PRO/DX INJ NEW DRUG ADDON (10/30/16) URINALYSIS AUTO W/SCOPE (04/13/19) URINE BACTERIA CULTURE (10/08/13) URINE CULTURE/COLONY COUNT (03/04/16) URINE TEST (04/13/19) US EXAM PELVIC COMPLETE (04/28/15) X-RAY EXAM COMPLETE ABDOMEN (12/22/12) X-RAY EXAM KNEE 4 OR MORE (03/09/15) X-RAY EXAM OF ABDOMEN (11/01/14) X-RAY EXAM OF FINGER(S) (01/30/19) X-RAY EXAM OF FOOT (11/30/13) X-RAY EXAM OF FOREARM (09/18/15) X-RAY EXAM OF HAND (11/27/19) X-RAY EXAM OF KNEE 3 (09/22/19) X-RAY EXAM OF SHOULDER (09/05/17) X-RAY EXAM OF WRIST (01/30/19) X-RAY EXAM OF WRIST (06/06/17) Problem List Initiated/Reviewed/Updated: Yes My Orders Last 24 Hours: My Active Orders 01/09/20 05:00 BASIC METABOLIC PANEL,BMP [CHEM] Timed CBC WITH AUTO DIFF [HEME] Timed Plan: ASSESSMENT AND RECOMMENDATIONS EPISODES OF SECOND AND THIRD-DEGREE AV BLOCK-associated with symptoms of weakness, nausea, diaphoresis, and lightheadedness. These events are episodic and of relatively short duration, lasting less than 1 minute. Previous history of vagal type symptoms associated with blood draws and piercings. Unlikely that she has significant cardiac dysfunction or conduction problem. At baseline there is normal rhythm with no evidence of even first-degree AV block. She seems to have adequate heart rate response with activity. -Echocardiogram to assess left ventricular function, chamber sizes, and valvular status STATUS POST GASTRIC SLEEVE -Postoperative care per Dr. Walker SEIZURE DISORDER -Continue outpatient therapy Requesting Provider: JON Date Consult Requested: 01/08/20 Reason for Consult: Second and third-degree AV block Patient History Reviewed: Yes Notified Requestor: Yes
[2020-01-08] MEDS: Pantoprazole 40 MG Vial IVPUSH SCH (17:17)
[2020-01-08] MEDS: MVI, Adult with Vitamin K 10 ML, Thiamine 200 MG, Chromium/Copper/Mang/Selen/Zn 1 ML in... IV SCH ×4 (17:20)
[2020-01-08] MEDS: Zonisamide 50 MG Capsule PO SCH (20:15)
[2020-01-09] MEDS: Acetaminophen 500 MG Tab PO SCH ×2 (02:25→09:14)
[2020-01-09] MEDS: HYDROmorphone 2 MG Tab PO PRN ×2 (03:25→09:28)
[2020-01-09] MEDS: Albuterol/Ipratropium 3.0-0.5 MG/3 ML Neb Soln INH SCH ×2 (07:13→10:52)
[2020-01-09] MEDS: Formoterol/Mometasone 200-5 MCG 8.8 GM Inhaler IH SCH (07:13)
[2020-01-09 07:17] VITALS: BP 121/76; PULSE 71
[2020-01-09] MEDS ORDERED: Cyanocobalamin (Vitamin B12) 1,000 MCG/ML SDV IM ONE (09:00)
[2020-01-09] MEDS: Heparin Sodium 5,000 Units/ML Vial SUBCUT SCH (09:13)
[2020-01-09] MEDS: Celecoxib 200 MG Cap PO SCH (09:13)
[2020-01-09] MEDS: Sertraline 50 MG Tab PO SCH (09:14)
[2020-01-09] MEDS: levETIRAcetam 250 MG Tab PO SCH (09:14)
--- NOTE | 2020-01-09 12:37 | PCM.CONSN ---
- General Info Date of Service: 01/09/20 Subjective Update: Ms. Mahan has had 2 further episodes of bradycardia with second and third- degree AV block. Both of these episodes seem to occur related to taking her medications which she states makes her nauseated. Otherwise heart rate has been stable and does respond to activity appropriately. Functional Status: Reports: Tolerating Diet, Ambulating, Urinating - Review of Systems General: Reports: No Symptoms Pulmonary: Reports: No Symptoms Cardiovascular: Reports: Palpitations, Lightheadedness. Denies: Chest Pain, Dyspnea on Exertion, Orthopnea, PND, Edema Gastrointestinal: Reports: Abdominal Pain. Denies: Diarrhea, Difficulty Swallowing, Nausea, Vomiting Genitourinary: Reports: No Symptoms - Patient Data Vitals - Most Recent: Last Vital Signs Temp 97.1 F 01/09/20 07:17 Pulse 71 01/09/20 07:17 Resp 16 01/09/20 07:17 BP 121/76 01/09/20 07:17 Pulse Ox 98 01/09/20 07:17 Weight - Most Recent: 222 lb I&O - Last 24 Hours: Intake & Output 01/08/20 01/09/20 01/09/20 22:59 06:59 14:59 Intake Total 250 2581 Output Total 910 900 800 Balance -660 1681 -800 Lab Results Last 24 Hours: Laboratory Results - last 24 hr 01/09/20 01/09/20 Range/Units 04:50 04:50 WBC 16.5 H (4.5-11.0) K/uL RBC 3.92 (3.30-5.50) M/uL Hgb 10.9 L (12.0-15.0) g/dL Hct 34.9 L (36.0-48.0) % MCV 89 (80-98) fL MCH 28 (27-31) pg MCHC 31 L (32-36) % Plt Count 319 (150-400) K/uL Neut % (Auto) 75 H (36-66) % Lymph % (Auto) 15 L (24-44) % Hodgeman % (Auto) 10 H (2-6) % Eos % (Auto) 0 L (2-4) % Baso % (Auto) 0 (0-1) % Sodium 141 (140-148) mmol/L Potassium 3.9 (3.6-5.2) mmol/L Chloride 107 (100-108) mmol/L Carbon Dioxide 25 (21-32) mmol/L Anion Gap 9.0 (5.0-14.0) mmol/L BUN 8 (7-18) mg/dL Creatinine 0.9 (0.6-1.0) mg/dL Est Cr Clr Drug Dosing 79.04 mL/min Estimated GFR (MDRD) > 60 (>60) Glucose 106 (74-106) mg/dL Calcium 8.8 (8.5-10.1) mg/dL TSH, Ultra Sensitive 0.896 (0.358-3.740) uIU/mL Med Orders - Current: Current Medications Acetaminophen (Tylenol Extra Strength) 1,000 mg PO Q8H [facility] Last Admin: 01/09/20 09:14 Dose: 1,000 mg Documented by: Acetaminophen (Tylenol Extra Strength) 500 mg PO Q8H PRN PRN Reason: MILD PAIN Albuterol/Ipratropium (Duoneb 3.0-0.5 Mg/3 Ml) 3 ml INH QIDRT [facility] Last Admin: 01/09/20 10:52 Dose: Not Given Documented by: Albuterol/Ipratropium (Duoneb 3.0-0.5 Mg/3 Ml) 3 ml INH ASDIRECTED PRN PRN Reason: BREATHING Celecoxib (Celebrex) 200 mg PO BID [facility] Last Admin: 01/09/20 09:13 Dose: 200 mg Documented by: Cyclobenzaprine HCl (Flexeril) 10 mg PO Q8H PRN PRN Reason: Muscle Spasm Diphenhydramine HCl (Benadryl) 50 mg IVPUSH Q4H PRN PRN Reason: ITCHING Heparin Sodium (Porcine) (Heparin Sodium) 5,000 units SUBCUT Q12H [facility] Last Admin: 01/09/20 09:13 Dose: 5,000 units Documented by: Hydromorphone HCl (Dilaudid) 2 - 4 mg PO Q4H PRN PRN Reason: Pain Last Admin: 01/09/20 09:28 Dose: 2 mg Documented by: Hydroxyzine HCl (Vistaril) 100 mg IM Q4H PRN PRN Reason: pain Multivitamins/Minerals 10 ml/Thiamine HCl 200 mg/ Chromium/Copper/Manganese/Seleni/Zn 1 ml/ Dextrose/Lactated Ringer's 1,013 mls @ 100 mls/hr IV DAILY@1600 [facility] Last Admin: 01/08/20 17:20 Dose: 100 mls/hr Documented by: Dextrose/Lactated Ringer's (Dextrose 5%-Lactated Ringers) 1,000 mls @ 100 mls/hr IV ASDIRECTED [facility] Levetiracetam (Keppra) 500 mg PO DAILY [facility] Last Admin: 01/09/20 09:14 Dose: 500 mg Documented by: Metoclopramide HCl (Reglan) 10 mg IVPUSH Q6H PRN PRN Reason: NAUSEA NOT CONTROL BY ZOFRAN Mometasone Furoate/Formoterol Fumar (Dulera 200-5 Mcg) 2 puff IH BIDRT [facility] Last Admin: 01/09/20 07:13 Dose: 2 puff Documented by: Naloxone HCl (Narcan) 0.1 mg IV ASDIRECTED PRN PRN Reason: decreased respiratory rate Ondansetron HCl (Zofran) 4 mg IVPUSH Q4H PRN PRN Reason: Nausea/Vomiting Last Admin: 01/08/20 01:29 Dose: 4 mg Documented by: Ondansetron HCl (Zofran Odt) 4 mg PO Q4H PRN PRN Reason: Nausea/Vomiting Last Admin: 01/08/20 09:56 Dose: 4 mg Documented by: Pantoprazole Sodium (Protonix Iv) 40 mg IVPUSH Q24H [facility] Last Admin: 01/08/20 17:17 Dose: 40 mg Documented by: Sertraline HCl (Zoloft) 50 mg PO DAILY [facility] Last Admin: 01/09/20 09:14 Dose: 50 mg Documented by: Zonisamide (Zonisamide) 100 mg PO BEDTIME [facility] Last Admin: 01/08/20 20:15 Dose: 100 mg Documented by: Discontinued Medications Acetaminophen (Tylenol Extra Strength) 1,000 mg PO ONETIME ONE Stop: 01/07/20 09:01 Last Admin: 01/07/20 09:34 Dose: 1,000 mg Documented by: Albuterol/Ipratropium (Duoneb 3.0-0.5 Mg/3 Ml) 3 ml NEB ONETIME ONE Stop: 01/07/20 09:01 Last Admin: 01/07/20 09:38 Dose: 3 ml Documented by: Calcium Gluconate (Calcium Gluconate) 1 gm IVPUSH ONETIME PRN PRN Reason: SX MAGNESIUM TOXICITY Stop: 01/08/20 16:00 Cefoxitin Sodium (Mefoxin) Confirm Administered Dose 2 gm .ROUTE .STK-MED ONE Stop: 01/07/20 09:13 Last Admin: 01/07/20 14:16 Dose: 2 gm Documented by: Cefoxitin Sodium (Mefoxin) Confirm Administered Dose 2 gm .ROUTE .STK-MED ONE Stop: 01/07/20 12:52 Last Admin: 01/07/20 14:16 Dose: 2 gm Documented by: Celecoxib (Celebrex) 400 mg PO ONETIME ONE Stop: 01/07/20 09:32 Last Admin: 01/07/20 09:37 Dose: 400 mg Documented by: Ropivacaine 51 ml/Dexamethasone 8 mg/Epinephrine HCl 0.4 mg/ Sodium Chloride 26.6 ml 0 ml NERVRT ASDIRECTED SARAH Last Admin: 01/07/20 12:45 Dose: 80 syringe Documented by: Cyanocobalamin (Vitamin B12) 1,000 mcg IM ONETIME ONE Stop: 01/09/20 09:01 Last Admin: 01/09/20 09:14 Dose: 1,000 mcg Documented by: Dexamethasone (Decadron) Confirm Administered Dose 4 mg .ROUTE .STK-MED ONE Stop: 01/07/20 07:56 Fentanyl (Sublimaze) Confirm Administered Dose 250 mcg .ROUTE .STK-MED ONE Stop: 01/07/20 11:38 Fentanyl (Sublimaze) Confirm Administered Dose 250 mcg .ROUTE .STK-MED ONE Stop: 01/07/20 12:02 Fentanyl (Sublimaze) Confirm Administered Dose 100 mcg .ROUTE .STK-MED ONE Stop: 01/07/20 13:10 Fentanyl (Sublimaze) Confirm Administered Dose 100 mcg .ROUTE .STK-MED ONE Stop: 01/07/20 13:36 Gabapentin (Neurontin) 300 mg PO ONETIME ONE Stop: 01/07/20 09:01 Last Admin: 01/07/20 09:35 Dose: 300 mg Documented by: Glycopyrrolate (Robinul) Confirm Administered Dose 1 mg .ROUTE .STK-MED ONE Stop: 01/07/20 07:56 Hydromorphone HCl (Dilaudid [employer] 15 Mg In Ns 30 Ml) 0 mg IV ASDIRECTED PRN; Protocol PRN Reason: Pain Last Admin: 01/07/20 13:57 Dose: 0.3 mg Documented by: Hydroxyzine HCl (Vistaril) 100 mg IM ONETIME ONE Stop: 01/07/20 14:01 Last Admin: 01/07/20 14:03 Dose: 100 mg Documented by: Dextrose/Lactated Ringer's (Dextrose 5%-Lactated Ringers) 1,000 mls @ 100 mls/hr IV ASDIRECTED [facility] Last Admin: 01/07/20 10:16 Dose: 100 mls/hr Documented by: Cefoxitin Sodium 2 gm/ Sodium (Chloride) 50 mls @ 100 mls/hr IV ONETIME ONE Stop: 01/07/20 09:29 Last Admin: 01/07/20 12:42 Dose: 100 mls/hr Documented by: Ketamine HCl 50 mg/ Sodium (Chloride) 50 mls @ 15.72 mls/hr IV ASDIRECTED [facility] Magnesium Sulfate 3 gm/ Sodium (Chloride) 106 mls @ 212 mls/hr IV ASDIRECTED [facility] Magnesium Sulfate 4.8 gm/ (Sodium Chloride) 259.6 mls @ 32.45 mls/hr IV ONETIME ONE Stop: 01/07/20 18:29 Last Admin: 01/07/20 14:56 Dose: 32.45 mls/hr Documented by: Dextrose/Lactated Ringer's (Dextrose 5%-Lactated Ringers) 1,000 mls @ 175 mls/hr IV ASDIRECTED [facility] Last Admin: 01/08/20 06:21 Dose: 175 mls/hr Documented by: Cefoxitin Sodium 2 gm/ Sodium (Chloride) 50 mls @ 100 mls/hr IV Q6H [facility] Stop: 01/09/20 00:29 Last Admin: 01/08/20 23:01 Dose: 100 mls/hr Documented by: Iopamidol (Isovue-300 (61%)) 50 ml PO ASDIRECTED STA Stop: 01/08/20 02:53 Last Admin: 01/08/20 03:05 Dose: 50 ml Documented by: Ketamine HCl (Ketalar) 26 mg IV ASDIRECTED [facility] Labetalol HCl (Normodyne) Confirm Administered Dose 20 mg .ROUTE .STK-MED ONE Stop: 01/07/20 13:11 Labetalol HCl (Normodyne) 5 mg IVPUSH Q5M PRN PRN Reason: SBP over 160 OR DBP over 95 Neostigmine Methylsulfate (Neostigmine) Confirm Administered Dose 5 mg .ROUTE .STK-MED ONE Stop: 01/07/20 07:56 Ondansetron HCl (Zofran) Confirm Administered Dose 4 mg .ROUTE .STK-MED ONE Stop: 01/07/20 07:56 Propofol (Diprivan 20 Ml) Confirm Administered Dose 200 mg .ROUTE .STK-MED ONE Stop: 01/07/20 07:56 Rocuronium [place] (Zemuron) Confirm Administered Dose 50 mg .ROUTE .STK-MED ONE Stop: 01/07/20 07:56 Succinylcholine Chloride (Quelicin) Confirm Administered Dose 200 mg .ROUTE .STK-MED ONE Stop: 01/07/20 07:56 - Exam General: Alert, Oriented, Cooperative, Moderate Distress Lungs: Clear to Auscultation, Normal Respiratory Effort Cardiovascular: Regular Rate, Regular Rhythm, No Murmurs GI/Abdominal Exam: Soft, Non-Tender, No Organomegaly, No Distention Extremities: Non-Tender, No Pedal Edema Sepsis Event Note - Evaluation Sepsis Screening Result: No Definite Risk - Focused Exam Vital Signs: Vital Signs Temp Pulse Resp BP Pulse Ox 01/09/20 07:17 97.1 F 71 16 121/76 98 01/09/20 03:31 165/111 H 01/09/20 03:00 98.2 F 74 18 142/94 H 92 L Consult PN Assessment/Plan Procedures: Procedures AIRWAY INHALATION TREATMENT (02/23/19) APPLICATION LONG LEG SPLINT (03/09/15) ASSAY OF AMYLASE (07/22/15) ASSAY OF FIBRONECTIN (12/28/15) ASSAY OF LACTIC ACID (09/11/15) ASSAY OF LIPASE (11/17/19) ASSAY OF MAGNESIUM (02/23/19) ASSAY OF PHOSPHORUS (02/23/19) ASSAY THYROID STIM HORMONE (10/08/13) BLOOD TYPING SEROLOGIC ABO (12/21/19) BLOOD TYPING SEROLOGIC RH(D) (12/21/19) C-REACTIVE PROTEIN (04/13/15) CHEST X-RAY 2VW FRONTAL&LATL (04/13/15) CHORIONIC GONADOTROPIN ASSAY (07/22/15) CHORIONIC GONADOTROPIN TEST (09/11/15) CHYLMD TRACH DNA AMP PROBE (11/01/14) COMPLETE CBC AUTOMATED (02/23/19) COMPLETE CBC W/AUTO DIFF WBC (11/17/19) COMPREHEN METABOLIC PANEL (11/17/19) CT ABD & PELV W/CONTRAST (07/22/15) CT HEAD/BRAIN W/O DYE (09/05/17) CT MAXILLOFACIAL W/O DYE (09/05/17) CT NECK SPINE W/O DYE (09/05/17) CULTURE AEROBIC IDENTIFY (11/09/13) CULTURE OTHR SPECIMN AEROBIC (11/09/13) CULTURE SCREEN ONLY (06/13/18) DRAINAGE OF SKIN ABSCESS (11/09/13) ECHO EXAM OF ABDOMEN (10/08/16) EGD BIOPSY SINGLE/MULTIPLE (08/11/15) ELECTROCARDIOGRAM REPORT (10/08/13) ELECTROCARDIOGRAM TRACING (09/05/17) EMERGENCY DEPT VISIT (11/27/19) EMERGENCY DEPT VISIT (11/17/19) EMERGENCY DEPT VISIT (09/22/19) EMERGENCY DEPT VISIT (04/13/19) EMERGENCY DEPT VISIT (04/04/19) EMERGENCY DEPT VISIT (03/22/19) EMERGENCY DEPT VISIT (03/22/19) EMERGENCY DEPT VISIT (12/31/18) EMERGENCY DEPT VISIT (06/13/18) EMERGENCY DEPT VISIT (03/30/18) EMERGENCY DEPT VISIT (09/05/17) EMERGENCY DEPT VISIT (07/24/17) EMERGENCY DEPT VISIT (06/06/17) EMERGENCY DEPT VISIT (05/07/17) EMERGENCY DEPT VISIT (03/24/17) EMERGENCY DEPT VISIT (07/25/16) EMERGENCY DEPT VISIT (06/03/16) EMERGENCY DEPT VISIT (05/23/16) EMERGENCY DEPT VISIT (04/29/16) EMERGENCY DEPT VISIT (10/17/15) EMERGENCY DEPT VISIT (10/11/15) EMERGENCY DEPT VISIT (10/08/15) EMERGENCY DEPT VISIT (09/22/15) EMERGENCY DEPT VISIT (07/19/15) EMERGENCY DEPT VISIT (07/14/15) EMERGENCY DEPT VISIT (07/01/15) EMERGENCY DEPT VISIT (06/14/15) EMERGENCY DEPT VISIT (06/14/15) EMERGENCY DEPT VISIT (06/03/15) EMERGENCY DEPT VISIT (06/03/15) EMERGENCY DEPT VISIT (04/21/15) EMERGENCY DEPT VISIT (04/13/15) EMERGENCY DEPT VISIT (04/13/15) EMERGENCY DEPT VISIT (04/08/15) EMERGENCY DEPT VISIT (11/01/14) EMERGENCY DEPT VISIT (02/10/14) EMERGENCY DEPT VISIT (02/10/14) EMERGENCY DEPT VISIT (01/17/14) EMERGENCY DEPT VISIT (01/17/14) EMERGENCY DEPT VISIT (12/17/13) EMERGENCY DEPT VISIT (12/04/13) EMERGENCY DEPT VISIT (12/04/13) EMERGENCY DEPT VISIT (11/30/13) EMERGENCY DEPT VISIT (11/30/13) EMERGENCY DEPT VISIT (10/24/13) EMERGENCY DEPT VISIT (06/15/13) EMERGENCY DEPT VISIT (05/30/13) EMERGENCY DEPT VISIT (05/25/13) EMERGENCY DEPT VISIT (05/06/13) EMERGENCY DEPT VISIT (04/25/13) EVAL AMNIOTIC FLUID PROTEIN (03/08/16) GLUCOSE BLOOD TEST (10/17/15) HYDRATE IV INFUSION ADD-ON (10/30/16) HYDRATION IV INFUSION INIT (09/24/13) INFLUENZA ASSAY W/OPTIC (04/04/19) LAP INC TAD RECUR COMP (02/23/19) LAP VENT/ABD TAD PROC COMP (03/31/15) LAPARO PROC ABDM/PER/OMENT (03/31/15) METABOLIC PANEL TOTAL CA (03/08/16) MICROBE SUSCEPTIBLE ANIBAL (11/09/13) MRI BRAIN STEM W/O & W/DYE (11/24/18) N.GONORRHOEAE DNA AMP PROB (11/01/14) OB US < 14 WKS SINGLE FETUS (09/12/15) OB US >/= 14 WKS SNGL FETUS (11/15/15) OFFICE/OUTPATIENT VISIT EST (03/08/16) POLYSOM 6/> YRS 4/> HUMA (11/21/19) RBC ANTIBODY SCREEN (12/21/19) ROUTINE VENIPUNCTURE (12/21/19) RPR F/E/E/N/L/M 2.5 CM/< (09/05/17) SMEAR GRAM STAIN (11/09/13) SMEAR WET MOUNT SALINE/INK (01/20/16) STREP A AG IA (06/13/18) STREP A ASSAY W/OPTIC (04/04/19) THER/PROPH/DIAG INJ IV PUSH (10/30/16) THER/PROPH/DIAG INJ SC/IM (09/22/19) THER/PROPH/DIAG IV INF INIT (04/01/15) TISSUE EXAM BY PATHOLOGIST (08/11/15) TISSUE EXAM BY PATHOLOGIST (03/31/15) TISSUE EXAM BY PATHOLOGIST (03/31/15) TISSUE EXAM BY PATHOLOGIST (03/31/15) TISSUE EXAM BY PATHOLOGIST (01/24/14) TRANSVAGINAL US NON-OB (04/28/15) TRANSVAGINAL US OBSTETRIC (02/10/14) TX/PRO/DX INJ NEW DRUG ADDON (10/30/16) URINALYSIS AUTO W/SCOPE (04/13/19) URINE BACTERIA CULTURE (10/08/13) URINE CULTURE/COLONY COUNT (03/04/16) URINE TEST (04/13/19) US EXAM PELVIC COMPLETE (04/28/15) X-RAY EXAM COMPLETE ABDOMEN (12/22/12) X-RAY EXAM KNEE 4 OR MORE (03/09/15) X-RAY EXAM OF ABDOMEN (11/01/14) X-RAY EXAM OF FINGER(S) (01/30/19) X-RAY EXAM OF FOOT (11/30/13) X-RAY EXAM OF FOREARM (09/18/15) X-RAY EXAM OF HAND (11/27/19) X-RAY EXAM OF KNEE 3 (09/22/19) X-RAY EXAM OF SHOULDER (09/05/17) X-RAY EXAM OF WRIST (01/30/19) X-RAY EXAM OF WRIST (06/06/17) Problem List Initiated/Reviewed/Updated: Yes Plan: ASSESSMENT AND RECOMMENDATIONS EPISODES OF SECOND AND THIRD-DEGREE AV BLOCK-associated with symptoms of weakness, nausea, diaphoresis, and lightheadedness. These events are episodic and of relatively short duration, lasting less than 1 minute. Previous history of vagal type symptoms associated with blood draws and piercings. Unlikely that she has significant cardiac dysfunction or conduction problem. At baseline there is normal rhythm with no evidence of even first-degree AV block. She seems to have adequate heart rate response with activity. Further episodes over the last 24 hours, limited in duration and related to have been taking her medications with resulting nausea. -Echocardiogram as an outpatient -Follow-up with primary care within 1 week STATUS POST GASTRIC SLEEVE -Postoperative care per Dr. Walker SEIZURE DISORDER -Continue outpatient therapy
[2020-01-09] MEDS ORDERED: Magnesium Hydroxide 400 MG/5 ML Susp 30 ML Cup PO SCH (12:45)
--- NOTE | 2020-01-10 08:59 | DISCH ---
ADMISSION DIAGNOSES: 1. Morbid obesity, BMI 39.3. 2. Gastroesophageal reflux disease with esophagitis. 3. Iron-deficiency anemia. 4. Seizure disorder. 5. Psychogenic syncope. 6. Tension-type headache. 7. Moderate persistent asthma. 8. Anxiety. DISCHARGE DIAGNOSES: 1. Episodes of 2nd and 3rd degree AV block associated with symptoms of weakness, nausea, diaphoresis, and lightheadedness. 2. Diagnostic laparoscopy converted to laparotomy: a. Vertical sleeve gastrectomy. b. Liver biopsy. c. Repair of paraesophageal hernia with mesh. POSTOPERATIVE DIAGNOSES: 1. Morbid obesity. 2. Hepatomegaly. 3. Paraesophageal diaphragmatic hernia. 4. Intraabdominal adhesions. HISTORY: Jazmyn Mahan is a 24-year-old female with longstanding history of morbid obesity and increasing comorbidities. After preoperative evaluation and discussion of possible risks and possible complications, she wished to proceed with surgical procedure. HOSPITAL COURSE: Jazmyn had her surgery on 01/07/2020. She had the 1st postop evening after her magnesium was completed. She had episodes of 2nd and 3rd-degree AV block associated with severe bradycardia and episodes lasted 1 minute associated with nausea, weakness, diaphoresis and lightheadedness. On postop day 1, consult by Regulo Polk was obtained. She will be set up for an echocardiogram on 01/10/2020, and a cardiac consult will be made. Jazmyn was able to be discharged to home on postop day 2. She had adequate education in step 2 gastric bypass diet without cereal. Her oral intake was adequate. Vital signs were stable. Oral intake was 1210, output was 2300. ROBERT drain prior to removal was 10 mL of a light pink drainage. She was up ambulating, had no questions or concerns, and was able to be discharged to home. PHYSICAL EXAMINATION: GENERAL: Jazmyn is a 24-year-old female, alert, and orientated. VITAL SIGNS: Height 5 feet 3 inches, weight is 222 pounds, BMI 33.3. TPR at 0017 is 97.1, 71, 16; blood pressure 121/76. HEENT: Negative. NECK: Supple. HEART: Regular rate and rhythm. LUNGS: Clear. ABDOMEN: Aquacel dressing is on, abdominal binder is on. EXTREMITIES: Without peripheral edema. DISPOSITION: Discharged to home. CONDITION: Stable and improving. HOME MEDICATIONS: 1. Celebrex 200 mg b.i.d. #28. 2. Dilaudid 2 mg every 6 hours p.r.n. pain #28. 3. Milk of mag 2 doses were sent home with the patient to take 1 today and 1 tomorrow. 4. Tylenol Extra Strength 1000 mg every 8 hours p.r.n. pain. 5. Zofran ODT 4 mg every 4 hours p.r.n. pain. She is to resume home medications of Advair inhaler 2 puffs every 12 hours p.r.n. wheezing, omeprazole 20 mg daily, sertraline (Zoloft) 5 mg oral daily, triamcinolone cream 1 applicator topical twice daily, zonisamide 100 mg at bedtime, levetiracetam 500 mg daily. FOLLOWUP: Followup appointment with Niurka Underwood PA-C, at [facility] on 01/18/2020 at 12:30 p.m. DIET: Step 2 gastric bypass diet with no cereal until 02/06/2020. ACTIVITY: No lifting over 10 pounds for 6 weeks. OTHER ACTIVITY: Walk 6 times daily inside your home. DISCHARGE INSTRUCTION: After discharge, do not drive for 1 week or while on pain medication. Shower/bathing: May shower. Notify provider if any fever, increased pain, nausea, or vomiting. Keep site clean and dry. Take off Aquacel dressing on , 01/13/2020. Wear abdominal binder for 6 weeks and then as tolerated. SPECIAL INSTRUCTION: Use incentive spirometer 10 times every hour while awake. A referral to a occupational therapist assistants will be made for you and someone will call you to let you know the date and time of appointment. Echocardiogram was set up. Keep a journal of protein and liquid intake. /[id number]
[2020-01-12 12:13] LABS: LYME IGG/IGM AB <0.91 ISR (0.00-0.90)
--- NOTE | 2020-01-17 10:34 | OR ---
DATE OF PROCEDURE: 01/07/2020 SURGEON: Huan Walker MD PREOPERATIVE DIAGNOSIS: Morbid obesity. POSTOPERATIVE DIAGNOSES: 1. Morbid obesity. 2. Extensive intraabdominal adhesions necessitating open laparotomy. 3. Marked hepatomegaly. 4. Paraesophageal diaphragmatic hernia. OPERATIVE PROCEDURES: 1. Diagnostic laparoscopy converted to laparotomy with: a. Vertical sleeve gastrectomy (48591). b. Jf-Cut needle liver biopsy (49891). c. Repair of paraesophageal diaphragmatic hernia with mesh (49411). ANESTHESIA: General. INDICATIONS FOR PROCEDURE: This is a 24-year-old presenting for a sleeve gastrectomy. She has long-standing morbid obesity and increasingly significant comorbidities. After preoperative evaluation and discussion, she wished to proceed with a sleeve gastrectomy. She is status post in the past possible need for an open procedure depending on the extent of adhesions. Otherwise potential risks including bleeding, infection, leaks from the GI tract staple line, as well as possibility of cardiopulmonary, septic, or hemorrhagic complications leading to were all discussed, and the patient wishes to proceed. DETAILS OF PROCEDURE: The patient was taken to the operating room and placed in a supine position. After general endotracheal anesthesia was induced, she was converted to a lithotomy position and the abdomen prepped and draped. Beginning initially 15 cm inferior and 5 cm left of the xiphoid process, transverse incision was made. The peritoneal cavity could be entered but was essentially engulfed in intense adhesions. Three more trocar insertion sites were placed across the mid and lower abdomen with same result. At that point, it was felt that the patient had a more or less confluent mid abdominal adhesions which would require a laparotomy. A midline incision was then made from the xiphoid down to just above the umbilicus, carried down through the full-thickness abdominal wall. The previously placed mesh was then encountered and this was not needing to be divided and retracted anteriorly. As expected, the patient had marked hepatomegaly with liver volume being roughly 2 to 3 times normal and liver grossly fatty infiltrated. At this point, the stomach was freed up of some additional adhesions. The patient was noted to have a significant paraesophageal diaphragmatic hernia with prolapse of a portion of the gastric cardia, in this case primarily posteriorly to the course of the esophagus. This area was reduced and crural repair posteriorly was accomplished with 0 Ethibond sutures reinforced with PTFE pledgets. Phasix ST mesh was then cut in a horseshoe type configuration and placed in the area over the crural repair and fixed there with titanium tacking screws to the crura on each side. At this point, the omentum was divided away from the stomach beginning 2 cm proximal to the pylorus on the greater curvature side. This was accomplished with a combination of Harmonic scalpel and SHARON staple loads. This continued up to and through the highest and posterior short gastric vessels, and at that point, the area around the gastroesophageal junction appeared to be well skeletonized so as to avoid a cul-de-sac of stomach being left in that area. The sleeve gastrectomy was then accomplished with first 2 firings of the SHARON black loads without reinforcement beginning 2 cm proximal to the pylorus. This dissection was then continued upward underneath the incisura angularis with care taken to avoid overtightening in that area. A 32-Japanese suction tube was then placed orally per Anesthesia along the lesser curvature of the stomach and then placed to suction. Remainder of the sleeve gastrectomy was then accomplished with a combination of reinforced black and reinforced purple SHARON loads, and the stomach specimen then delivered from the field. The staple line appeared to be intact in this area with no bleeding. Air was injected into the stomach tube at this point having been taken off suction, which distended the stomach, and no leaks or bleeding were seen with the area being submerged with an antibiotic-containing saline solution. The gastrectomy staple line was then reinforced with some fibrin sealant focusing on the area of esophagogastric junction. Omentum was then tacked up along length of the gastrectomy line with some 3-0 Vicryl stitch as well, and at that point, a Damien-Reyes drain was taken through the stab wound in the left subcostal area and positioned across the area of the gastroesophageal junction, from there up into the area of the splenic fossa. Midline fascia was then approximated with #2 Vicryl stitch. Prior to closure, bilateral transversus abdominis plane blocks had been placed, and following closure of the fascia, the subcutaneous tissue was approximated with 2 layers of 3-0 and 4-0 Vicryl stitch deep and the skin with yoselyn. Dressing was applied. The patient was taken to the recovery room in satisfactory condition. There were no evident complications. Huan Walker MD /[id number]
== END 2020-01-09 12:50 | disposition home or self-care (01) | DRG 620 ==
LOC: JP.SDS 08:43 → JP.SDSSCHI 08:44 → EDSTATUS 10:15 → JP.MS 14:00
PROVIDERS: ADMIT Surgery; ATTEND Surgery
PROC: 0DB60Z3 Excision of Stomach, Open Approach, Vertical (ICD-10-PCS; principal; 2020-01-07)
PROC: 0FB20ZX Excision of Left Lobe Liver, Open Approach, Diagnostic (ICD-10-PCS; 2020-01-07)
PROC: 0BUT0JZ Supplement Diaphragm with Synthetic Substitute, Open Approach (ICD-10-PCS; 2020-01-07)
PROC: 0DJ64ZZ Inspection of Stomach, Percutaneous Endoscopic Approach (ICD-10-PCS; 2020-01-07)
DX: E66.01 Morbid (severe) obesity due to excess calories (principal); I44.2 Atrioventricular block, complete; K21.00 Gastro-esophageal reflux disease with esophagitis, without bleeding; D50.9 Iron deficiency anemia, unspecified; G40.909 Epilepsy, unspecified, not intractable, without status epilepticus; G44.209 Tension-type headache, unspecified, not intractable; J45.40 Moderate persistent asthma, uncomplicated; F41.9 Anxiety disorder, unspecified; R16.0 Hepatomegaly, not elsewhere classified; K66.0 Peritoneal adhesions (postprocedural) (postinfection); K44.9 Diaphragmatic hernia without obstruction or gangrene; Z68.39 Body mass index [BMI] 39.0-39.9, adult
CPT/HCPCS: 36415; 74240; 80048; 80053; 81025; 82962; 83735; 84100; 84443; 85025; 85027; 86618; 86850; 86900; 86901; 88307; 88313; 88342; 93005; 93010; 94640; 94762; A9270-GY; C1713; C1781; C9113; J0171; J0330; J0694; J1100; J1170; J1644; J2405; J2704; J2710; J2795; J3010; J3410; J3411; J3420; J3475; J3490; J7050; J7121; J7620-GY; Q9967

== ENCOUNTER 2020-01-22 18:58 | Emergency (ER) | payer MEDICAID ==
[2020-01-22 19:43] VITALS: BP 102/65; PULSE 80
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
== END 2020-01-22 20:21 | disposition home or self-care (01) ==
LOC: JP.ED 18:58
DX: G89.18 Other acute postprocedural pain (principal); R10.11 Right upper quadrant pain; K21.9 Gastro-esophageal reflux disease without esophagitis; E66.9 Obesity, unspecified; J45.909 Unspecified asthma, uncomplicated; F41.9 Anxiety disorder, unspecified; F31.9 Bipolar disorder, unspecified; Z98.51 Tubal ligation status; Z79.899 Other long term (current) drug therapy; Z68.37 Body mass index [BMI] 37.0-37.9, adult
CPT/HCPCS: 99283

== ENCOUNTER 2020-03-22 01:19 | Emergency (ER) | payer MEDICAID ==
[2020-03-22 01:46] VITALS: BP 120/70; PULSE 79
--- NOTE | 2020-03-22 01:52 | EDM.PDOC ---
ED HPI GENERAL MEDICAL PROBLEM - General Chief Complaint: Skin Complaint Stated Complaint: LEFT LEG AND FOOT PAIN Time Seen by Provider: 03/22/20 01:42 Source of Information: Reports: Patient History Limitations: Reports: No Limitations - History of Present Illness INITIAL COMMENTS - FREE TEXT/NARRATIVE: 24-year-old female who has been having some lower leg discomfort for the past couple of days, has a itchy rash on the back of her left calf and "swollen feet". No fevers or chills. No medication changes. Onset: Sudden (Swollen feet have been present for the last 2 days, rash appeared this afternoon) bilateral feet Pain Score (Numeric/FACES): 9 - Related Data Allergies Allergy/AdvReac Type Severity Reaction Status Date / Time No Known Allergies Allergy Verified 03/22/20 01:24 Home Meds: Home Meds Albuterol Sulfate [Proventil Hfa] 2 puff IH Q6HR PRN 07/06/15 [History] Fluticasone Propion/Salmeterol [Advair Hfa 230-21 Mcg Inhaler] 2 puff INH Q12H PRN 02/22/19 [History] Sertraline [Zoloft] 50 mg PO DAILY 09/22/19 [History] Zonisamide 100 mg PO BEDTIME 09/22/19 [History] levETIRAcetam [Levetiracetam] 500 mg PO DAILY 09/22/19 [History] Omeprazole 20 mg PO DAILY 01/03/20 [History] Triamcinolone Acetonide [Triamcinolone Acetonide 0.1% Crm] 1 applic TOP BID PRN 01/03/20 [History] Acetaminophen [Tylenol Extra Strength] 1,000 mg PO Q8H tablet 01/09/20 [Rx] Celecoxib [CeleBREX] 200 mg PO BID cap 01/09/20 [Rx] Ondansetron [Zofran ODT] 4 mg PO Q4H PRN #30 tab.dis 01/09/20 [Rx] Magnesium Hydroxide [Milk of Magnesia] 30 ml PO DAILY PRN 01/22/20 [History] Past Medical History HEENT History: Reports: Impaired Vision, Other (See Below) Other HEENT History: vision corrected with glasses, infected cracked tooth Cardiovascular History: Reports: Arrhythmia, Pacemaker, Other (See Below) Other Cardiovascular History: heart palpitations. 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: 1st child born at 37+ weeks Musculoskeletal History: Reports: Other (See Below) Other Musculoskeletal History: knee pain Neurological History: Reports: Concussion, Migraines, Seizure Psychiatric History: Reports: ADD, ADHD, Anxiety, Bipolar, Depression Other Psychiatric History: no medication; "know how to control it" Endocrine/Metabolic History: Reports: Obesity/BMI 30+ Hematologic History: Reports: Anemia Other Hematologic History: recent and D&C september 22, 2014 Dermatologic History: Reports: Cellulitis Other Dermatologic History: history of cellulitis to right foot - Infectious Disease History Infectious Disease History: Reports: Chicken Pox Other Infectious Disease History: unknown - Past Surgical History HEENT Surgical History: Reports: None Cardiovascular Surgical History: Reports: None Respiratory Surgical History: Reports: None GI Surgical History: Reports: Bariatric Procedure, Hernia Repair/Other, Other (See Below) Other GI Surgeries/Procedures: Umbilical hernia repair with mesh December 2013, Umbilical hernia repair with mesh 03/31. Gastric sleeve procedure 2019 Female Surgical History: Reports: Tubal Ligation Endocrine Surgical History: Reports: None Neurological Surgical History: Reports: None Musculoskeletal Surgical History: Reports: None Oncologic Surgical History: Reports: None Dermatological Surgical History: Reports: None Social & Family History - Family History Family Medical History: No Pertinent Family History Neurological: Reports: Seizure - Tobacco Use Tobacco Use Status *Q: Never Tobacco User - Caffeine Use Caffeine Use: Reports: None - Recreational Drug Use Recreational Drug Use: No - Living Situation & Occupation Living situation: Reports: , with Family ED ROS GENERAL - Review of Systems Review Of Systems: See Below Constitutional: Denies: Fever, Chills Respiratory: Denies: Shortness of Breath GI/Abdominal: Denies: Nausea, Vomiting Skin: Reports: Rash (Scattered small excoriations from fleabites, deep red rash on the posterior left calf) ED EXAM, SKIN/RASH Exam: See Below Exam Limited By: No Limitations General Appearance: Alert, No Apparent Distress Head: Atraumatic Respiratory/Chest: No Respiratory Distress, Lungs Clear Extremities: Other (There is no objective diffuse swelling of either foot or ankle. No pitting edema. She does have somewhat linear arrays of deep red petechial patterns of rash on the posterior left calf which is nonblanching but nontender. No petechial hemorrhages under the nails. Several discrete asymmetric raised tender erythematous lesions on the inner aspect of the left foot) Neurological: Alert, Oriented Course - Vital Signs Last Recorded V/S: Last Vital Signs Temp 36.7 F L 03/22/20 01:45 Pulse 79 03/22/20 01:45 Resp 14 03/22/20 01:45 BP 120/70 03/22/20 01:45 Pulse Ox 97 03/22/20 01:45 - Orders/Labs/Meds Labs: Laboratory Tests 03/22/20 Range/Units 02:00 WBC 10.9 (4.5-11.0) K/uL RBC 4.78 (3.30-5.50) M/uL Hgb 13.4 D (12.0-15.0) g/dL Hct 42.4 (36.0-48.0) % MCV 89 (80-98) fL MCH 28 (27-31) pg MCHC 32 (32-36) % Plt Count 304 (150-400) K/uL Neut % (Auto) 52 (36-66) % Lymph % (Auto) 35 (24-44) % [place] % (Auto) 12 H (2-6) % Eos % (Auto) 1 L (2-4) % Baso % (Auto) 1 (0-1) % Meds: Medications Discontinued Medications Generic Name Dose Route Start Last Admin Trade Name Zan PRN Reason Stop Dose Admin Methylprednisolone Sodium Succinate 125 mg 03/22/20 02:12 03/22/20 02:19 Solu-Medrol IM 03/22/20 02:13 125 mg ONETIME ONE Administration - Re-Assessments/Exams Free Text/Narrative Re-Assessment/Exam: 03/22/20 01:51 And can give her some triamcinolone cream to put on the rash and recheck with Dr. Pope in the next day or two for further work-up and evaluation of response to treatment. 03/22/20 02:14 Patient has what appears to be some type of allergic reaction, possibly early erythema multifome. She was also given 125 mg of IM Solu-Medrol, a CBC was checked to look at platelets which were normal. She will recheck with Dr. Pope tomorrow. Departure - Departure Time of Disposition: 01:55 Disposition: Home, Self-Care 01 Clinical Impression: Petechial rash - Discharge Information Instructions: Rash, Adult Referrals: PCP,None [Primary Care Provider] - Forms: ED Department Discharge Care Plan Goals: Have Dr. Pope recheck your rash in the next 1 to 2 days and discuss any further evaluation that may be needed if not responding to topical treatment. Sepsis Event Note (ED) - Evaluation Sepsis Screening Result: No Definite Risk - Focused Exam Vital Signs: Vital Signs Temp Pulse Resp BP Pulse Ox 03/22/20 01:45 36.7 F L 79 14 120/70 97 03/22/20 01:43 98.1 F 79 14 120/70 97
[2020-03-22] MEDS: methylPREDNISolone Sodium Succinate 125 MG/2 ML SDV IM ONE (02:19)
== END 2020-03-22 02:23 | disposition home or self-care (01) ==
LOC: JP.ED 01:19
DX: R23.3 Spontaneous ecchymoses (principal); J45.909 Unspecified asthma, uncomplicated; K21.9 Gastro-esophageal reflux disease without esophagitis; E66.9 Obesity, unspecified; Z68.34 Body mass index [BMI] 34.0-34.9, adult; Z79.899 Other long term (current) drug therapy
CPT/HCPCS: 36415; 85025; 96372; 99283; J2930